=== PATIENT | female | born 1935 | race African-American/Black ===

== ENCOUNTER → 2017-01-08 | Outpatient (CLI) | payer OTHER ==
[2016-07-15 12:31] VITALS: BP 118/73
--- NOTE | 2017-01-08 16:39 | RAD ---
Examination: X-rays of the left hand. Clinical history: Left hand pain after catching herself from falling. Technique: Three views of the left hand were obtained. Comparison: None available. Findings: The bones are diffusely osteopenic. There is a small 4 mm corticated ossific density seen at the distal aspect of the ulnar styloid, whi ch could be due to an accessory ossicle or old ununited ulnar styloid fracture. An additional 5 mm c orticated ossific density is seen at the distal aspect of the radial styloid, probably representing a small accessory ossicle. An old ununited distal radius fracture cannot definitely be excluded. No acute fracture, dislocation, or destructive bony lesion is noted. Moderate osteoarthritic changes are noted at the 1st carpometacarpal joint and at the interphalangea l joint of the thumb. No soft tissue abnormality is noted. Impression: 1. No acute fracture or dislocation. 2. Arthropathy, as described above. 3. Diffuse osteopenia. Reported By:
== END | disposition home or self-care (01) ==
LOC: RAD 15:45
PROVIDERS: ATTEND Nurse Practitioner Family
DX: M79.642 Pain in left hand (principal); M12.842 Other specific arthropathies, not elsewhere classified, left hand; M85.842 Other specified disorders of bone density and structure, left hand
CPT/HCPCS: 73130

== ENCOUNTER → 2017-01-15 | Outpatient (CLI) | payer OTHER ==
[2016-07-15 12:31] VITALS: BP 118/73
--- NOTE | 2017-01-15 15:03 | RAD ---
HISTORY: Right knee pain Study: Right knee three view Comparison: None Findings: There is no evidence for fracture, lytic, or blastic lesion. No joint erosions are identified. There is a joint effusion present. There is severe patellofemoral degenerative joint disease present. The medial lateral compartments are preserved however there is subtle chondrocalcinosis involving the m edial and lateral menisci. This is most frequently seen in degenerative joint disease but can also b e seen in gout pseudogout and hemochromatosis. IMPRESSION: Relatively severe patellofemoral degenerative joint disease with a joint effusion present Medial lateral meniscal chondrocalcinosis Reported By:
== END | disposition home or self-care (01) | DRG 556 ==
LOC: RAD 14:36
PROVIDERS: ATTEND Nurse Practitioner Family
DX: M25.561 Pain in right knee (principal); M17.11 Unilateral primary osteoarthritis, right knee; M25.461 Effusion, right knee; M11.261 Other chondrocalcinosis, right knee
CPT/HCPCS: 73564

== ENCOUNTER → 2017-03-20 | Outpatient (CLI) | payer OTHER ==
[2016-07-15 12:31] VITALS: BP 118/73
[~2017-03-20] MED LIST: NS 100 ML IV 100 ML IV ONE
--- NOTE | 2017-03-20 11:56 | CT ---
Examination: CT of the abdomen and pelvis with contrast. Clinical History: Abnormal weight loss. Technique: Multiple axial images were obtained from the lung bases down to the pubic symphysis follow ing the intravenous administration of 99 ml of Omnipaque 350. Oral contrast was also administered. Do se reduction techniques including automated exposure control (AEC) and adjustment of mA and kV were u tilized. Comparison: 12/16/2013. Findings: There are multiple sternal wires indicating a prior median sternotomy, with an associated aortic valv e replacement also noted. Coronary artery calcifications are noted, suggestive of coronary artery dis ease. There is a confluent opacity present at the dependent portion of the left lower lobe, which cou ld be due to atelectasis or pneumonia. Clinical correlation is recommended. The remainder of the visu alized portion of the lung bases is unremarkable. Surgical clips are noted in the gallbladder fossa, consistent with a prior cholecystectomy. Essentially stable intra and extrahepatic biliary ductal dilatation is noted, with the common bile du ct measuring approximately 1.2 cm in diameter. There is stable mild prominence of the pancreatic duct also noted. Findings are probably postsurgical in nature, related to the prior cholecystectomy. The liver, spleen, pancreas, adrenal glands and kidneys are normal in appearance. The abdominal aorta is heavily calcified, but is normal in caliber. Extensive vascular calcifications are seen in the lower abdomen and pelvis, with additional milder vascular calcifications also seen i n the upper abdomen. There is no free air. The bowel gas pattern is non-obstructive. Extensive diverticular are seen associated with the sigmoid portion of the colon, with scattered smal l diverticula also seen in the descending portion of the colon. There is no CT evidence for an acute diverticulitis. The small bowel is grossly unremarkable. The appendix is visualized and is normal in appearance. The bladder is within normal limits. The uterus is surgically absent. Stable coarse periurethral calcifications are again noted. No pelvic mass or fluid collection is noted. No enlarged lymph nodes, by CT criteria, are noted in the mesenteric, periaortic or deep pelvic regio ns. There is a lumbar scoliosis seen convex to the right. Degenerative changes are noted in the spine. El ectronic leads are seen in the subcutaneous fat at the posterior aspect of the posterior elements of the lower lumbar spine. No acute osseous abnormality is noted. Impression: 1. Stable postsurgical changes from a prior cholecystectomy, with stable intra and extrahepatic bilia ry ductal dilatation and pancreatic duct dilatation noted. 2. Colonic diverticulosis without evidence for an acute diverticulitis. 3. Stable coarse periurethral calcifications are noted. Findings could be postsurgical or post trauma tic or could be due to an inflammatory or infective process. Clinical correlation is recommended. 4. There is a confluent opacity present at the dependent portion of the left lower lobe, which could be due to atelectasis or pneumonia. Clinical correlation is recommended. 5. Coronary artery calcifications are noted, suggestive of coronary artery disease. 6. There are postsurgical changes from a prior median sternotomy, with an associated aortic valve rep lacement. Reported By:
== END | disposition home or self-care (01) | DRG 641 ==
LOC: RAD 09:27
PROVIDERS: ATTEND Nurse Practitioner Family
DX: R63.4 Abnormal weight loss (principal); R63.0 Anorexia; R35.8 Other polyuria; K57.90 Diverticulosis of intestine, part unspecified, without perforation or abscess without bleeding; I25.10 Atherosclerotic heart disease of native coronary artery without angina pectoris
CPT/HCPCS: 36415; 74177; 82565; 84520; A4222

== ENCOUNTER 2017-06-02 12:36 | Inpatient (IN) | payer OTHER ==
[2017-06-02] MEDS ORDERED: NS 1/2 1000 ML IV 1,000 ML IV ONE (14:32)
[2017-06-02] MEDS: NS 1/2 1000 ML IV 1,000 ML IV SCH (14:41)
[2017-06-02 14:52] LABS: BASOPHILS % (AUTO) 0.5 % (0.2-1.0); EOSINOPHILS % (AUTO) 0.6 % (0.9-2.9); HEMATOCRIT 32.6 % (36.0-47.0); HEMOGLOBIN 10.9 g/dL (12.0-16.0); LYMPHOCYTES # (AUTO) 1.8 X10^3/uL (1.3-2.9); LYMPHOCYTES % (AUTO) 30.9 % (21.0-51.0); MEAN CORPUSCULAR HEMOGLOBIN 29.9 pg (27.0-34.0); MEAN CORPUSCULAR HGB CONC 33.5 g/dL (33.0-35.0); MEAN CORPUSCULAR VOLUME 89.1 fL (80.0-100.0); MEAN PLATELET VOLUME 7.6 fL (7.4-11.0); MONOCYTES # (AUTO) 0.4 x10^3/uL (0.3-0.8); MONOCYTES % (AUTO) 7.3 % (0.0-13.0); NEUTROPHILS # (AUTO) 3.5 x10^3/uL (2.2-4.8); NEUTROPHILS % (AUTO) 60.7 % (42.0-75.0); PLATELET COUNT 231 X10^3/uL (150.0-450.0); RED BLOOD COUNT 3.66 X10^6/uL (3.5-5.4); RED CELL DISTRIBUTION WIDTH 14.5 % (11.6-16.5); WHITE BLOOD COUNT 5.8 X10^3/uL (3.6-10.0)
[2017-06-02] MEDS ORDERED: SALINE 3% 15 ML NEB TX NEB ONE (14:52)
[2017-06-02 14:59] LABS: ALANINE AMINOTRANSFERASE 12 Units/L (12-78); ALBUMIN 3.5 g/dL (3.4-5.0); ALKALINE PHOSPHATASE 88 Units/L (46-116); ASPARTATE AMINO TRANSFERASE 15 Units/L (15-37); BLOOD UREA NITROGEN 20 mg/dL (7-18); CALCIUM 9.2 mg/dL (8.5-10.1); CARBON DIOXIDE 23.3 mmol/L (21-32); CHLORIDE 104 mmol/L (98-107); COR NA(FOR HYPERGLY) 140 mmol/L (136-145); CREATININE 1.15 mg/dL (0.55-1.02); SODIUM 139 mmol/L (136-145); TOTAL PROTEIN 7.8 g/dL (6.4-8.2); eGFR BLACK RACES 58 (>60); eGFR NON BLACK RACES 48 (>60)
[2017-06-02] MEDS ORDERED: ZOSYN VIAL 4.5 GM 4.5 GM in NS 100 ML IV + SPIKE MINIBAG* 100 ML IV SCH (15:00)
--- NOTE | 2017-06-02 15:27 | RAD ---
Is Examination: Chest, PA and lateral views History: Pneumonia and bronchitis Comparison reference: 07/15/2016 Findings: Continued upper normal heart size with surgical changes of aortic valve replacement. The ao rta is arteriosclerotic. The central pulmonary vessels are mildly distended. There is abnormal pleura l density at the left base posteriorly, and medially, which may represent pleural effusion and/or ple ural thickening. Associated parenchymal abnormality is not excluded. Impression: Stable heart size with postsurgical findings of aortic valve replacement. Mild venous con gestion. Retrocardiac density at the left base may represent pleural or more likely chronic pleural t hickening. Additional imaging would be helpful to distinguish. Reported By:
[2017-06-02] MEDS: SOLU-Medrol 125 MG VIAL IVP SCH ×2 (15:33→21:01)
[2017-06-02] MEDS: DUONEB 0.5 MG/3 MG NEB SCH ×2 (16:08→20:58)
[2017-06-02] MEDS: ROBITUSSIN DM PO SCH ×2 (16:30→21:08)
[2017-06-02] MEDS: PULMICORT NEB TX 0.5 MG NEB SCH (20:58)
[2017-06-02] MEDS: ZOSYN VIAL 3.375 GM 3.375 GM in NS 100 ML IV 100 ML IV SCH (21:01)
[2017-06-02] MEDS: TUSSIONEX PENNKINETIC SUSP PO PRN (21:02)
[2017-06-03] MEDS: DUONEB 0.5 MG/3 MG NEB SCH ×6 (01:07→20:31)
[2017-06-03 05:12] LABS: BASOPHILS % (AUTO) 0.2 % (0.2-1.0); HEMATOCRIT 27.6 % (36.0-47.0); HEMOGLOBIN 9.4 g/dL (12.0-16.0); LYMPHOCYTES # (AUTO) 0.4 X10^3/uL (1.3-2.9); LYMPHOCYTES % (AUTO) 12.3 % (21.0-51.0); MEAN CORPUSCULAR HEMOGLOBIN 30.4 pg (27.0-34.0); MEAN CORPUSCULAR HGB CONC 34.1 g/dL (33.0-35.0); MEAN CORPUSCULAR VOLUME 89.3 fL (80.0-100.0); MEAN PLATELET VOLUME 7.8 fL (7.4-11.0); MONOCYTES # (AUTO) 0 x10^3/uL (0.3-0.8); MONOCYTES % (AUTO) 1.1 % (0.0-13.0); NEUTROPHILS # (AUTO) 3.1 x10^3/uL (2.2-4.8); NEUTROPHILS % (AUTO) 86.4 % (42.0-75.0); PLATELET COUNT 208 X10^3/uL (150.0-450.0); RED BLOOD COUNT 3.09 X10^6/uL (3.5-5.4); RED CELL DISTRIBUTION WIDTH 14.3 % (11.6-16.5); WHITE BLOOD COUNT 3.6 X10^3/uL (3.6-10.0)
[2017-06-03 05:23] LABS: CARBON DIOXIDE 21.4 mmol/L (21-32); COR CA(FOR HYPOALB) 9.8 mg/dL (8.5-10.1); CREATININE 1.16 mg/dL (0.55-1.02); TOTAL PROTEIN 6.9 g/dL (6.4-8.2)
[2017-06-03] MEDS: ZOSYN VIAL 3.375 GM 3.375 GM in NS 100 ML IV 100 ML IV SCH ×3 (05:33→20:59)
[2017-06-03] MEDS: SOLU-Medrol 125 MG VIAL IVP SCH ×3 (05:33→20:59)
[2017-06-03] MEDS: NS 1/2 1000 ML IV 1,000 ML IV SCH ×3 (05:57→20:48)
[2017-06-03] MEDS ORDERED: MAGNESIUM SULFATE 1 GM/100 mL PREMIX 1 GM/100 ML BAG IV PRN (06:25)
[2017-06-03] MEDS ORDERED: MAG-OX TAB PO PRN (06:25)
[2017-06-03] MEDS ORDERED: K-LYTE EFFERVESCENT PO PRN (06:25)
[2017-06-03] MEDS ORDERED: K-RIDER 10 MEQ/NS 100 ML 10 MEQ/100 ML BAG IV PRN (06:25)
[2017-06-03] MEDS ORDERED: POTASSIUM CHLORIDE LIQ 20 MEQ UDC PO PRN (06:25)
[2017-06-03] MEDS ORDERED: POTASSIUM CHL 60 MEQ/NS 0.45% 500 ML IV NR (07:00)
[2017-06-03] MEDS ORDERED: POTASSIUM CHL 40 MEQ/NS 0.45% 500 ML IV PRN (07:00)
[2017-06-03] MEDS ORDERED: POTASSIUM CHL 60 MEQ/NS 0.45% 500 ML IV PRN (07:00)
[2017-06-03] MEDS ORDERED: ALPRAZOLAM 0.5 MG PO PRN (08:46)
[2017-06-03] MEDS ORDERED: [UNRECOGNIZED DRUG - OTHER] IN SCH (09:00)
[2017-06-03] MEDS ORDERED: SALMETEROL IN SCH (09:00)
[2017-06-03] MEDS ORDERED: FLUTICASONE IN SCH (09:00)
[2017-06-03] MEDS ORDERED: XANAX PO PRN (09:02)
[2017-06-03] MEDS: PROTONIX TAB 40 MG PO SCH (09:19)
[2017-06-03] MEDS: MEGACE PO SCH ×2 (09:19→20:53)
[2017-06-03] MEDS: LEVAQUIN PREMIX IV 750 MG 750 MG/150 ML BAG IV SCH (09:19)
[2017-06-03] MEDS: PULMICORT NEB TX 0.5 MG NEB SCH ×2 (09:19→20:31)
[2017-06-03] MEDS: TUSSIONEX PENNKINETIC SUSP PO PRN (09:20)
[2017-06-03] MEDS: ROBITUSSIN DM PO SCH ×5 (09:20→20:39)
[2017-06-03] MEDS: TENORMIN PO SCH (09:20)
[2017-06-03] MEDS: LASIX IVP SCH ×2 (10:29→20:40)
--- NOTE | 2017-06-03 11:13 | RAD ---
Examination: KUB History: Left lower quadrant pain Comparison reference: Abdomen CT 03/20/2017 Findings: There is significant gaseous distention of portions of small bowel in the left lower abdome n. The colon is not distended. There is no evidence for mass formation or ascites. Surgical clips are present in the upper abdomen. There is a catheter or similar device projected over the lower abdomen . This could be intra abdominal or on the skin surface. Mention is made of airspace disease in the le ft lower lung, with air bronchogram. Impression: 1. Selective small-bowel dilatation may represent ileus, or developing small bowel obstruction. Corre late clinically with follow-up imaging. 2. Postsurgical findings upper abdomen. 3. Infiltrate/atelectasis retrocardiac left lower lung. Reported By:
[2017-06-03] MEDS: NORCO 10/325 TAB PO PRN ×2 (11:49→19:04)
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
[2017-06-03] MEDS ORDERED: NS 1/2 1000 ML IV 1,000 ML IV ONE (19:59)
[2017-06-04] MEDS: DUONEB 0.5 MG/3 MG NEB SCH ×6 (00:58→20:35)
[2017-06-04 04:59] LABS: BASOPHILS % (AUTO) 0.2 % (0.2-1.0); HEMATOCRIT 27.5 % (36.0-47.0); HEMOGLOBIN 9.3 g/dL (12.0-16.0); LYMPHOCYTES # (AUTO) 0.5 X10^3/uL (1.3-2.9); LYMPHOCYTES % (AUTO) 4.6 % (21.0-51.0); MEAN CORPUSCULAR HEMOGLOBIN 30.1 pg (27.0-34.0); MEAN CORPUSCULAR HGB CONC 33.9 g/dL (33.0-35.0); MEAN CORPUSCULAR VOLUME 88.8 fL (80.0-100.0); MEAN PLATELET VOLUME 7.8 fL (7.4-11.0); MONOCYTES # (AUTO) 0.2 x10^3/uL (0.3-0.8); MONOCYTES % (AUTO) 1.4 % (0.0-13.0); NEUTROPHILS # (AUTO) 10.1 x10^3/uL (2.2-4.8); NEUTROPHILS % (AUTO) 93.8 % (42.0-75.0); PLATELET COUNT 214 X10^3/uL (150.0-450.0); RED CELL DISTRIBUTION WIDTH 14.8 % (11.6-16.5); WHITE BLOOD COUNT 10.8 X10^3/uL (3.6-10.0)
[2017-06-04 05:19] LABS: BAND NEUTROPHILS % 1 % (0-10); PLATELET MORPHOLOGY COMMENT NORMAL (NORMAL)
[2017-06-04] MEDS ORDERED: NS 100 ML IV 100 ML IV ONE (05:19)
[2017-06-04] MEDS ORDERED: ZOSYN VIAL 3.375 GM IV ONE (05:21)
[2017-06-04] MEDS: SOLU-Medrol 125 MG VIAL IVP SCH (05:30)
[2017-06-04] MEDS: ZOSYN VIAL 3.375 GM 3.375 GM in NS 100 ML IV 100 ML IV SCH ×3 (05:30→21:11)
[2017-06-04 06:36] LABS: ALANINE AMINOTRANSFERASE 11 Units/L (12-78); ALBUMIN 3.4 g/dL (3.4-5.0); ALKALINE PHOSPHATASE 64 Units/L (46-116); ASPARTATE AMINO TRANSFERASE 15 Units/L (15-37); BLOOD UREA NITROGEN 15 mg/dL (7-18); CALCIUM 9.1 mg/dL (8.5-10.1); CARBON DIOXIDE 21.3 mmol/L (21-32); CHLORIDE 107 mmol/L (98-107); COR NA(FOR HYPERGLY) 141 mmol/L (136-145); CREATININE 1.35 mg/dL (0.55-1.02); SODIUM 140 mmol/L (136-145); TOTAL PROTEIN 6.8 g/dL (6.4-8.2); eGFR BLACK RACES 48 (>60); eGFR NON BLACK RACES 40 (>60)
[2017-06-04] MEDS: PULMICORT NEB TX 0.5 MG NEB SCH ×2 (09:17→20:35)
[2017-06-04] MEDS: LEVAQUIN PREMIX IV 750 MG 750 MG/150 ML BAG IV SCH (10:13)
[2017-06-04] MEDS: MEGACE PO SCH ×2 (10:13→20:14)
[2017-06-04] MEDS: ROBITUSSIN DM PO SCH ×4 (10:14→20:14)
[2017-06-04] MEDS: TENORMIN PO SCH (10:14)
[2017-06-04] MEDS: PROTONIX TAB 40 MG PO SCH (10:14)
--- NOTE | 2017-06-04 11:24 | RAD ---
Examination: Portable AP chest History: COPD SOB Comparison reference 06/02/2017. Findings: Continued cardiomegaly, postsurgical findings and aortic arteriosclerosis. Soft tissue dens ity in the right superior mediastinum that may represent dilated vascular structures. There is a retr ocardiac opacity most consistent with airspace disease in the left lower lobe. No pneumothorax is see n. Impression: Stable cardiomegaly, aortic arteriosclerosis and postsurgical findings. Retrocardiac dens ity may represent infiltrate or atelectasis. This is been noted on several prior studies. Follow-up i maging with CT should be considered to exclude an obstructing bronchial lesion. Reported By:
[2017-06-04] MEDS: NORCO 10/325 TAB PO PRN (16:00)
[2017-06-04] MEDS: NS 1/2 1000 ML IV 1,000 ML IV SCH (16:00)
[2017-06-05] MEDS: DUONEB 0.5 MG/3 MG NEB SCH ×6 (01:10→20:57)
[2017-06-05] MEDS: ZOSYN VIAL 3.375 GM 3.375 GM in NS 100 ML IV 100 ML IV SCH ×3 (05:56→21:22)
[2017-06-05 06:11] LABS: BASOPHILS % (AUTO) 0.1 % (0.2-1.0); HEMATOCRIT 27.4 % (36.0-47.0); HEMOGLOBIN 9.3 g/dL (12.0-16.0); LYMPHOCYTES # (AUTO) 1.1 X10^3/uL (1.3-2.9); LYMPHOCYTES % (AUTO) 9.2 % (21.0-51.0); MEAN CORPUSCULAR HEMOGLOBIN 30.1 pg (27.0-34.0); MEAN CORPUSCULAR VOLUME 88.7 fL (80.0-100.0); MEAN PLATELET VOLUME 8.1 fL (7.4-11.0); MONOCYTES # (AUTO) 0.8 x10^3/uL (0.3-0.8); MONOCYTES % (AUTO) 6.2 % (0.0-13.0); NEUTROPHILS # (AUTO) 10.5 x10^3/uL (2.2-4.8); NEUTROPHILS % (AUTO) 84.5 % (42.0-75.0); PLATELET COUNT 202 X10^3/uL (150.0-450.0); RED BLOOD COUNT 3.09 X10^6/uL (3.5-5.4); WHITE BLOOD COUNT 12.4 X10^3/uL (3.6-10.0)
[2017-06-05] MEDS: NS 1/2 1000 ML IV 1,000 ML IV SCH ×2 (06:18→14:14)
[2017-06-05 06:29] LABS: ALANINE AMINOTRANSFERASE 11 Units/L (12-78); ALBUMIN 2.8 g/dL (3.4-5.0); ALKALINE PHOSPHATASE 57 Units/L (46-116); ASPARTATE AMINO TRANSFERASE 15 Units/L (15-37); BLOOD UREA NITROGEN 15 mg/dL (7-18); CALCIUM 9.1 mg/dL (8.5-10.1); CARBON DIOXIDE 22.4 mmol/L (21-32); CHLORIDE 107 mmol/L (98-107); COR CA(FOR HYPOALB) 10.1 mg/dL (8.5-10.1); CREATININE 1.13 mg/dL (0.55-1.02); SODIUM 142 mmol/L (136-145); TOTAL PROTEIN 6.5 g/dL (6.4-8.2); eGFR BLACK RACES 59 (>60); eGFR NON BLACK RACES 49 (>60)
--- NOTE | 2017-06-05 06:38 | RAD ---
Examination: Portable AP chest History: COPD CHF Comparison reference: 06/04/2017 Findings: No change in heart size. Persistent retrocardiac opacity in the left base. There is no evid ence for large pleural effusion, pneumothorax or other interval change. Impression: No change in appearance of the chest since 1 day earlier. Reported By:
[2017-06-05] MEDS: PULMICORT NEB TX 0.5 MG NEB SCH ×2 (09:15→20:57)
[2017-06-05] MEDS: TENORMIN PO SCH (09:18)
[2017-06-05] MEDS: ROBITUSSIN DM PO SCH ×4 (09:18→21:21)
[2017-06-05] MEDS: PROTONIX TAB 40 MG PO SCH (09:18)
[2017-06-05] MEDS: MEGACE PO SCH ×2 (09:18→21:21)
[2017-06-05] MEDS: NORCO 10/325 TAB PO PRN ×2 (09:21→18:22)
[2017-06-05] MEDS: COLACE CAP 100 MG PO SCH (15:04)
[2017-06-05] MEDS: MILK OF MAGNESIA PO SCH (15:05)
[2017-06-05] MEDS: TUSSIONEX PENNKINETIC SUSP PO PRN (15:08)
[2017-06-06] MEDS: MILK OF MAGNESIA PO SCH (00:41)
[2017-06-06] MEDS: COLACE CAP 100 MG PO SCH (00:41)
[2017-06-06] MEDS: DUONEB 0.5 MG/3 MG NEB SCH ×6 (01:44→20:26)
[2017-06-06] MEDS ORDERED: COLACE CAP 100 MG PO PRN ×2 (04:45→06:49)
[2017-06-06] MEDS ORDERED: MILK OF MAGNESIA PO PRN ×2 (04:45→06:49)
[2017-06-06] MEDS: ZOSYN VIAL 3.375 GM 3.375 GM in NS 100 ML IV 100 ML IV SCH ×3 (05:00→21:01)
[2017-06-06 05:44] LABS: ALANINE AMINOTRANSFERASE 12 Units/L (12-78); ALBUMIN 2.5 g/dL (3.4-5.0); ALKALINE PHOSPHATASE 59 Units/L (46-116); ASPARTATE AMINO TRANSFERASE 14 Units/L (15-37); BLOOD UREA NITROGEN 16 mg/dL (7-18); CALCIUM 8.4 mg/dL (8.5-10.1); CARBON DIOXIDE 24.5 mmol/L (21-32); CHLORIDE 108 mmol/L (98-107); COR CA(FOR HYPOALB) 9.6 mg/dL (8.5-10.1); CREATININE 0.99 mg/dL (0.55-1.02); SODIUM 142 mmol/L (136-145); TOTAL PROTEIN 5.8 g/dL (6.4-8.2); eGFR BLACK RACES > 60 (>60); eGFR NON BLACK RACES 57 (>60)
[2017-06-06 05:48] LABS: BASOPHILS % (AUTO) 0.1 % (0.2-1.0); EOSINOPHILS % (AUTO) 0.2 % (0.9-2.9); HEMATOCRIT 28.3 % (36.0-47.0); HEMOGLOBIN 9.7 g/dL (12.0-16.0); LYMPHOCYTES # (AUTO) 2.7 X10^3/uL (1.3-2.9); LYMPHOCYTES % (AUTO) 31.3 % (21.0-51.0); MEAN CORPUSCULAR HEMOGLOBIN 30.4 pg (27.0-34.0); MEAN CORPUSCULAR HGB CONC 34.2 g/dL (33.0-35.0); MEAN CORPUSCULAR VOLUME 88.9 fL (80.0-100.0); MEAN PLATELET VOLUME 7.8 fL (7.4-11.0); MONOCYTES # (AUTO) 0.9 x10^3/uL (0.3-0.8); MONOCYTES % (AUTO) 9.8 % (0.0-13.0); NEUTROPHILS # (AUTO) 5.1 x10^3/uL (2.2-4.8); NEUTROPHILS % (AUTO) 58.6 % (42.0-75.0); PLATELET COUNT 202 X10^3/uL (150.0-450.0); RED BLOOD COUNT 3.18 X10^6/uL (3.5-5.4); WHITE BLOOD COUNT 8.8 X10^3/uL (3.6-10.0)
[2017-06-06] MEDS: PROTONIX TAB 40 MG PO SCH (08:48)
[2017-06-06] MEDS: MEGACE PO SCH ×2 (08:48→20:58)
[2017-06-06] MEDS: ROBITUSSIN DM PO SCH ×4 (08:48→20:58)
[2017-06-06] MEDS: TENORMIN PO SCH (08:48)
[2017-06-06] MEDS: LEVAQUIN PREMIX IV 750 MG 750 MG/150 ML BAG IV SCH (08:49)
[2017-06-06] MEDS ORDERED: NS 1/2 1000 ML IV 1,000 ML IV ONE (08:50)
[2017-06-06] MEDS: NS 1/2 1000 ML IV 1,000 ML IV SCH ×2 (08:51→17:54)
[2017-06-06] MEDS: PULMICORT NEB TX 0.5 MG NEB SCH ×2 (09:43→20:25)
[2017-06-06] MEDS: ACCUNEB 1.25 MG NEBULE NEB SCH ×2 (16:30→20:25)
[2017-06-06] MEDS: NORCO 10/325 TAB PO PRN (17:52)
[2017-06-07] MEDS: DUONEB 0.5 MG/3 MG NEB SCH ×6 (00:57→21:37)
[2017-06-07] MEDS: NS 1/2 1000 ML IV 1,000 ML IV SCH ×2 (02:02→16:51)
[2017-06-07] MEDS: ZOSYN VIAL 3.375 GM 3.375 GM in NS 100 ML IV 100 ML IV SCH ×3 (05:58→21:18)
[2017-06-07 07:12] LABS: BASOPHILS % (AUTO) 0.2 % (0.2-1.0); EOSINOPHILS % (AUTO) 0.5 % (0.9-2.9); HEMATOCRIT 27.9 % (36.0-47.0); HEMOGLOBIN 9.6 g/dL (12.0-16.0); LYMPHOCYTES # (AUTO) 2.7 X10^3/uL (1.3-2.9); LYMPHOCYTES % (AUTO) 34.9 % (21.0-51.0); MEAN CORPUSCULAR HEMOGLOBIN 30.3 pg (27.0-34.0); MEAN CORPUSCULAR HGB CONC 34.4 g/dL (33.0-35.0); MEAN CORPUSCULAR VOLUME 88.3 fL (80.0-100.0); MEAN PLATELET VOLUME 7.8 fL (7.4-11.0); MONOCYTES # (AUTO) 0.7 x10^3/uL (0.3-0.8); MONOCYTES % (AUTO) 8.7 % (0.0-13.0); NEUTROPHILS # (AUTO) 4.3 x10^3/uL (2.2-4.8); NEUTROPHILS % (AUTO) 55.7 % (42.0-75.0); PLATELET COUNT 198 X10^3/uL (150.0-450.0); RED BLOOD COUNT 3.17 X10^6/uL (3.5-5.4); RED CELL DISTRIBUTION WIDTH 15.3 % (11.6-16.5); WHITE BLOOD COUNT 7.6 X10^3/uL (3.6-10.0)
[2017-06-07 07:26] LABS: BLOOD UREA NITROGEN 13 mg/dL (7-18); CALCIUM 8.3 mg/dL (8.5-10.1); CARBON DIOXIDE 26.3 mmol/L (21-32); CHLORIDE 108 mmol/L (98-107); CREATININE 1.05 mg/dL (0.55-1.02); SODIUM 141 mmol/L (136-145); eGFR BLACK RACES > 60 (>60); eGFR NON BLACK RACES 53 (>60)
[2017-06-07 07:57] LABS: ALANINE AMINOTRANSFERASE 13 Units/L (12-78); ALBUMIN 2.7 g/dL (3.4-5.0); ALKALINE PHOSPHATASE 61 Units/L (46-116); ASPARTATE AMINO TRANSFERASE 12 Units/L (15-37); TOTAL PROTEIN 5.9 g/dL (6.4-8.2)
[2017-06-07 08:15] LABS: COR CA(FOR HYPOALB) 9.3 mg/dL (8.5-10.1)
[2017-06-07] MEDS: NORCO 10/325 TAB PO PRN ×2 (08:47→15:53)
[2017-06-07] MEDS: TENORMIN PO SCH (08:48)
[2017-06-07] MEDS: PROTONIX TAB 40 MG PO SCH (08:48)
[2017-06-07] MEDS: MEGACE PO SCH ×2 (08:48→21:17)
[2017-06-07] MEDS: ROBITUSSIN DM PO SCH ×4 (08:51→21:18)
[2017-06-07] MEDS: ACCUNEB 1.25 MG NEBULE NEB SCH ×2 (09:16→21:37)
[2017-06-07] MEDS: PULMICORT NEB TX 0.5 MG NEB SCH ×2 (09:16→21:37)
[2017-06-08] MEDS: DUONEB 0.5 MG/3 MG NEB SCH ×6 (01:04→20:55)
[2017-06-08 04:33] LABS: BASOPHILS % (AUTO) 0.2 % (0.2-1.0); EOSINOPHILS # (AUTO) 0.1 x10^3/uL (0.0-0.2); HEMATOCRIT 30.7 % (36.0-47.0); HEMOGLOBIN 10.3 g/dL (12.0-16.0); LYMPHOCYTES # (AUTO) 2.8 X10^3/uL (1.3-2.9); LYMPHOCYTES % (AUTO) 32.3 % (21.0-51.0); MEAN CORPUSCULAR HEMOGLOBIN 30.1 pg (27.0-34.0); MEAN CORPUSCULAR HGB CONC 33.5 g/dL (33.0-35.0); MEAN PLATELET VOLUME 7.4 fL (7.4-11.0); MONOCYTES # (AUTO) 0.8 x10^3/uL (0.3-0.8); MONOCYTES % (AUTO) 8.5 % (0.0-13.0); NEUTROPHILS # (AUTO) 5.1 x10^3/uL (2.2-4.8); PLATELET COUNT 205 X10^3/uL (150.0-450.0); RED BLOOD COUNT 3.41 X10^6/uL (3.5-5.4); RED CELL DISTRIBUTION WIDTH 14.9 % (11.6-16.5); WHITE BLOOD COUNT 8.8 X10^3/uL (3.6-10.0)
[2017-06-08 05:00] LABS: ALANINE AMINOTRANSFERASE 11 Units/L (12-78); ALBUMIN 2.9 g/dL (3.4-5.0); ALKALINE PHOSPHATASE 69 Units/L (46-116); ASPARTATE AMINO TRANSFERASE 13 Units/L (15-37); BLOOD UREA NITROGEN 12 mg/dL (7-18); CALCIUM 7.8 mg/dL (8.5-10.1); CARBON DIOXIDE 23.8 mmol/L (21-32); CHLORIDE 106 mmol/L (98-107); COR CA(FOR HYPOALB) 8.7 mg/dL (8.5-10.1); SODIUM 139 mmol/L (136-145); TOTAL PROTEIN 6.3 g/dL (6.4-8.2); eGFR BLACK RACES > 60 (>60); eGFR NON BLACK RACES 56 (>60)
[2017-06-08] MEDS: NS 1/2 1000 ML IV 1,000 ML IV SCH ×2 (05:36→17:46)
[2017-06-08] MEDS ORDERED: NS 100 ML IV + SPIKE MINIBAG* 100 ML IV ONE (05:38)
[2017-06-08] MEDS ORDERED: ZOSYN VIAL 3.375 GM IV ONE (05:38)
[2017-06-08] MEDS: ZOSYN VIAL 3.375 GM 3.375 GM in NS 100 ML IV 100 ML IV SCH ×3 (05:45→21:13)
--- NOTE | 2017-06-08 07:01 | RAD ---
Examination: Portable AP chest History: SOB COPD Comparison reference: 06/05/2017 Findings: Stable heart size with no new abnormality noted. There is slight apparent improvement in th e retrocardiac opacity since 3 days earlier. No evidence for developing pleural fluid or pneumothorax . Impression: Improving aeration of the left lower lung. Reported By:
[2017-06-08] MEDS: PULMICORT NEB TX 0.5 MG NEB SCH ×2 (08:06→20:55)
[2017-06-08] MEDS: MEGACE PO SCH ×2 (09:21→21:12)
[2017-06-08] MEDS: ROBITUSSIN DM PO SCH ×4 (09:21→21:13)
[2017-06-08] MEDS: PROTONIX TAB 40 MG PO SCH (09:21)
[2017-06-08] MEDS: LEVAQUIN PREMIX IV 750 MG 750 MG/150 ML BAG IV SCH (09:22)
[2017-06-08] MEDS: NORCO 10/325 TAB PO PRN (09:22)
[2017-06-08] MEDS: TENORMIN PO SCH (09:23)
[2017-06-08] MEDS ORDERED: NS 1/2 1000 ML IV 1,000 ML IV ONE (17:48)
[2017-06-08] MEDS ORDERED: PREDNISONE TAB 20 MG PO ONE (19:00)
[2017-06-08] MEDS ORDERED: PREDNISONE TAB 10 MG PO SCH (19:00)
[2017-06-09] MEDS: DUONEB 0.5 MG/3 MG NEB SCH ×6 (00:56→21:10)
[2017-06-09] MEDS ORDERED: PREDNISONE TAB 20 MG PO ONE ×2 (01:00→07:00)
[2017-06-09 04:28] LABS: BLOOD UREA NITROGEN 11 mg/dL (7-18); CALCIUM 8.7 mg/dL (8.5-10.1); CARBON DIOXIDE 24.1 mmol/L (21-32); CHLORIDE 105 mmol/L (98-107); COR NA(FOR HYPERGLY) 140 mmol/L (136-145); SODIUM 139 mmol/L (136-145); eGFR BLACK RACES > 60 (>60); eGFR NON BLACK RACES 50 (>60)
[2017-06-09 04:48] LABS: BASOPHILS % (AUTO) 0.1 % (0.2-1.0); HEMATOCRIT 28.2 % (36.0-47.0); HEMOGLOBIN 9.7 g/dL (12.0-16.0); LYMPHOCYTES # (AUTO) 0.4 X10^3/uL (1.3-2.9); LYMPHOCYTES % (AUTO) 4.8 % (21.0-51.0); MEAN CORPUSCULAR HEMOGLOBIN 30.5 pg (27.0-34.0); MEAN CORPUSCULAR HGB CONC 34.3 g/dL (33.0-35.0); MEAN CORPUSCULAR VOLUME 88.9 fL (80.0-100.0); MEAN PLATELET VOLUME 7.3 fL (7.4-11.0); MONOCYTES # (AUTO) 0.1 x10^3/uL (0.3-0.8); MONOCYTES % (AUTO) 0.9 % (0.0-13.0); NEUTROPHILS # (AUTO) 7.5 x10^3/uL (2.2-4.8); NEUTROPHILS % (AUTO) 94.2 % (42.0-75.0); PLATELET COUNT 190 X10^3/uL (150.0-450.0); RED BLOOD COUNT 3.17 X10^6/uL (3.5-5.4); WHITE BLOOD COUNT 7.9 X10^3/uL (3.6-10.0)
[2017-06-09 04:59] LABS: ALANINE AMINOTRANSFERASE 11 Units/L (12-78); ALBUMIN 2.8 g/dL (3.4-5.0); ALKALINE PHOSPHATASE 58 Units/L (46-116); ASPARTATE AMINO TRANSFERASE 11 Units/L (15-37); COR CA(FOR HYPOALB) 9.7 mg/dL (8.5-10.1); TOTAL PROTEIN 6.5 g/dL (6.4-8.2)
[2017-06-09 05:21] LABS: BAND NEUTROPHILS % 1 % (0-10); PLATELET MORPHOLOGY COMMENT NORMAL (NORMAL)
[2017-06-09 05:22] LABS: OVALOCYTES PRESENT
[2017-06-09] MEDS: NS 1/2 1000 ML IV 1,000 ML IV SCH ×2 (05:56→21:26)
[2017-06-09] MEDS: ZOSYN VIAL 3.375 GM 3.375 GM in NS 100 ML IV 100 ML IV SCH ×3 (06:03→21:25)
[2017-06-09] MEDS ORDERED: BENADRYL CAP 50 MG PO ONE (07:00)
[2017-06-09] MEDS: ACCUNEB 1.25 MG NEBULE NEB SCH (09:39)
[2017-06-09] MEDS: PULMICORT NEB TX 0.5 MG NEB SCH ×2 (09:40→21:10)
[2017-06-09] MEDS ORDERED: NS 1/2 1000 ML IV 1,000 ML IV ONE (10:06)
[2017-06-09] MEDS: ROBITUSSIN DM PO SCH ×4 (10:57→21:17)
[2017-06-09] MEDS: PROTONIX TAB 40 MG PO SCH (10:58)
[2017-06-09] MEDS: MEGACE PO SCH ×2 (10:58→21:17)
--- NOTE | 2017-06-09 11:14 | CT ---
HISTORY: Shortness of breath, lung infiltrates Study: CT chest with contrast Comparison: Plain film 06/08/2017 Technique: Axial post-contrast images with coronal and sagittal reformats. Dose reduction procedures were used with mA/kv adjusted for body size. Findings: Examination of the mediastinum demonstrated a markedly enlarged thyroid gland with substernal extensi on that deviates the trachea to the left. Multiple nodules and calcifications are present. Sonographi c evaluation would be of further diagnostic value. No mediastinal or hilar adenopathy of significance is identified. The thoracic aorta is within normal limits. Trace left pleural effusion is present. N o chest wall or axillary abnormality is identified. Those portions of the upper abdominal organs visu alized were within normal limits. Examination of the lung rao demonstrated changes of centrilobula r emphysema to be present more prominent on the right than the left. No masses, or nodules are identi fied. The right lung is free of acute infiltrates as is the left upper lobe. There is a small left lo wer lobe infiltrate with some associated atelectatic change present. There is diffuse peribronchial t hickening consistent with bronchitis which could be acute, chronic, or both. IMPRESSION: Small residual left lower lobe infiltrate Centrilobular emphysema Diffuse peribronchial thickening consistent with bronchitis which could be acute, chronic, or both Marked thyromegaly with substernal extension and leftward tracheal deviation. Multiple nodules appear to be present. Sonography would be of further diagnostic value. Reported By:
[2017-06-09] MEDS: TENORMIN PO SCH (11:15)
[2017-06-09] MEDS: NORCO 10/325 TAB PO PRN (16:17)
--- NOTE | 2017-06-09 18:14 | US ---
History: Thyromegaly Study: Ultrasound of the thyroid Findings: The right lobe measures 4.9 by 2.4 x 2.1 cm. The left lobe measures 3.5 by 2.1 x 1.8 cm. Th e isthmus measures 4.6 mm thickness. There is heterogeneous echogenicity diffusely with multiple michael d thyroid nodules the largest nodule on the right is in the lower pole measuring 3.3 cm maximum lengt h by approximately 1.9 cm AP diameter. There is peripheral vascularity around this nodule. The larges t on the left measures approximately 7 mm in diameter. Impression: Multinodular thyroid gland. A solid heterogeneous dominant nodule on the right measures u p to 3.3 x 1.9 cm which has some benign characteristics but because of size I recommend consideration of FNA. Reported By:
[2017-06-09 18:28] LABS: FREE T4 (FREE THYROXINE) 1.01 ng/dL (0.76-1.46); TSH (3RD GENERATION) 0.527 uIU/mL (0.358-3.74)
[2017-06-09] MEDS ORDERED: BENADRYL CAP 50 MG PO SCH (19:00)
[2017-06-10] MEDS: DUONEB 0.5 MG/3 MG NEB SCH ×4 (00:33→12:08)
[2017-06-10] MEDS: NORCO 10/325 TAB PO PRN (01:40)
[2017-06-10] MEDS ORDERED: NS 100 ML IV + SPIKE MINIBAG* 100 ML IV ONE (05:50)
[2017-06-10 06:00] LABS: ALANINE AMINOTRANSFERASE 10 Units/L (12-78); ALBUMIN 2.5 g/dL (3.4-5.0); ALKALINE PHOSPHATASE 53 Units/L (46-116); ASPARTATE AMINO TRANSFERASE 12 Units/L (15-37); BLOOD UREA NITROGEN 13 mg/dL (7-18); CALCIUM 8.2 mg/dL (8.5-10.1); CARBON DIOXIDE 23.2 mmol/L (21-32); CHLORIDE 108 mmol/L (98-107); COR CA(FOR HYPOALB) 9.4 mg/dL (8.5-10.1); CREATININE 0.94 mg/dL (0.55-1.02); SODIUM 141 mmol/L (136-145); TOTAL PROTEIN 5.9 g/dL (6.4-8.2); eGFR BLACK RACES > 60 (>60); eGFR NON BLACK RACES > 60 (>60)
[2017-06-10] MEDS: ZOSYN VIAL 3.375 GM 3.375 GM in NS 100 ML IV 100 ML IV SCH ×2 (06:08→13:32)
[2017-06-10 06:39] LABS: BASOPHILS % (AUTO) 0.2 % (0.2-1.0); HEMATOCRIT 24.9 % (36.0-47.0); HEMOGLOBIN 8.6 g/dL (12.0-16.0); LYMPHOCYTES # (AUTO) 1.6 X10^3/uL (1.3-2.9); LYMPHOCYTES % (AUTO) 14.6 % (21.0-51.0); MEAN CORPUSCULAR HEMOGLOBIN 30.5 pg (27.0-34.0); MEAN CORPUSCULAR HGB CONC 34.4 g/dL (33.0-35.0); MEAN CORPUSCULAR VOLUME 88.6 fL (80.0-100.0); MEAN PLATELET VOLUME 7.8 fL (7.4-11.0); MONOCYTES # (AUTO) 0.8 x10^3/uL (0.3-0.8); MONOCYTES % (AUTO) 7.2 % (0.0-13.0); NEUTROPHILS # (AUTO) 8.6 x10^3/uL (2.2-4.8); PLATELET COUNT 180 X10^3/uL (150.0-450.0); RED BLOOD COUNT 2.81 X10^6/uL (3.5-5.4); RED CELL DISTRIBUTION WIDTH 15.5 % (11.6-16.5); WHITE BLOOD COUNT 11.1 X10^3/uL (3.6-10.0)
[2017-06-10] MEDS: PULMICORT NEB TX 0.5 MG NEB SCH (08:44)
[2017-06-10] MEDS: ROBITUSSIN DM PO SCH ×2 (09:29→13:31)
[2017-06-10] MEDS: MEGACE PO SCH (09:30)
[2017-06-10] MEDS: TENORMIN PO SCH (09:30)
[2017-06-10] MEDS: PROTONIX TAB 40 MG PO SCH (09:30)
[2017-06-10] MEDS: LEVAQUIN PREMIX IV 750 MG 750 MG/150 ML BAG IV SCH (09:30)
[2017-06-10 14:37] VITALS: BP 117/60
== END 2017-06-10 15:55 | disposition home health service (06) | DRG 202 ==
LOC: MED/SURG 12:36
PROVIDERS: ADMIT Internal Medicine; ATTEND Internal Medicine
DX: J20.8 Acute bronchitis due to other specified organisms (principal); J44.1 Chronic obstructive pulmonary disease with (acute) exacerbation; I25.10 Atherosclerotic heart disease of native coronary artery without angina pectoris; I10 Essential (primary) hypertension; F41.8 Other specified anxiety disorders; R06.02 Shortness of breath; R06.03 Acute respiratory distress; E04.1 Nontoxic single thyroid nodule; M19.90 Unspecified osteoarthritis, unspecified site
CPT/HCPCS: 36415; 71010; 71020; 71260; 74000; 76536; 80053; 83735; 84132; 84439; 84443; 85025; 87040; 87070; 87205; 94640; 94669; 94760; 99231; A4222; S0179; J1940; J1956; J2543; J2930; J7506; J7613; J7620; J7626

== ENCOUNTER 2017-07-23 21:52 | Emergency (ER) | payer OTHER ==
[2017-07-23 21:57] VITALS: BP 167/78; BMI 20.3
--- NOTE | 2017-07-23 22:54 | RAD ---
Chest, two views Indication: Shortness of breath, left lower lobe infiltrate Comparison: 06/08/2017 Findings: Heart size is stable with prior median sternotomy and valve replacement changes noted. Lung s are again mildly hyperexpanded with flattening of the hemidiaphragms, compatible with COPD. Previou sly seen left lower lobe opacity has minimally improved in the interval. No new focal infiltrate, sig nificant effusion or pneumothorax is identified. Impression: Persistent but improving left lower lobe infiltrate. Reported By:
[2017-07-23] MEDS ORDERED: ROCEPHIN VIAL 1 GM IM ONE (23:37)
[2017-07-23] MEDS ORDERED: ROCEPHIN VIAL 1 GM ONE (23:40)
[2017-07-23] MEDS ORDERED: XYLOCAINE 1 % (PLAIN) ONE (23:40)
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
== END 2017-07-24 00:09 | disposition home or self-care (01) ==
LOC: ER 21:52
DX: J18.9 Pneumonia, unspecified organism (principal); T59.811A Toxic effect of smoke, accidental (unintentional), initial encounter
CPT/HCPCS: 71046; 96372; 99282; J0696; J2001

== ENCOUNTER → 2017-11-13 | Outpatient (CLI) | payer OTHER ==
[2017-11-11 08:45] VITALS: BP 110/57
== END ==
LOC: RT 12:35
PROVIDERS: ATTEND Nurse Practitioner Family
DX: R07.89 Other chest pain (principal)
CPT/HCPCS: 93005; 93010

== ENCOUNTER 2018-04-18 18:27 | Inpatient (IN) ==
[2018-04-18 18:31] VITALS: BMI 21.9
[2018-04-18] MEDS ORDERED: DUONEB 0.5 MG/3 MG ONE ×2 (18:35→18:58)
[2018-04-18] MEDS ORDERED: DUONEB 0.5 MG/3 MG NEB ONE ×2 (18:36→18:51)
[2018-04-18] MEDS ORDERED: SOLU-Medrol 125 MG VIAL IVP ONE (18:51)
--- NOTE | 2018-04-18 18:53 | DR.URIAD ---
HPI - Time Seen Time seen: 18:50 - PCP Primary Care Physician: mary jo - Complaint Chief Complaint Doctors Comments: Patient is complaining of SOB, wheezing with problems breathing since last night. States she has been taking nebulizer treat ments at home but it has not been helping. States she is a patient of Dr. Franco. She denies tobacco, alcohol or drug usage. She denies swelling of arm and legs. States she has been coughing yellow sputum and last night she coughed up some blood but not today. Chief Complaint:: pt stated she has been short of breath since last night. stated she took her breathing tx at home but it hasnt helped - Reviewed Nurses Notes Reviewed: Yes - Source History Provided: Patient - Mode of Arrival Mode of Arrival: Ambulatory - Timing Onset of Chief Complaint: 04/17/18 - Context Recent Treated Infections: None History of Respiratory: Asthma - Quality Quality of Cough: Productive, Yellow Rhinorrhea: None Shortness of Breath: Moderate - Associated Signs and Symptoms Other Signs and Symptoms: Cough, Shortness of Breath, Wheeze PMH - PMH Past Medical History: Yes Past Medical History: Anxiety, Arthritis, COPD, Coronary Artery Disease, GERD, Hypertension Past Surgical History: Yes Surgical History: Angioplasty/Stents, Hysterectomy, Other - Family History History of Family Medical Conditions: Yes Family Medical History: Cancer - Social History Does patient currently use any type of tobacco product: No Have you used tobacco products in the last 12 months: No Type of Tobacco Use: None Does any household member use tobacco: Yes Alcohol Use: None Do you use any recreational Drugs:: No Lives With: Family Lives Where: Home - infectious screening In the last 2 months have you had wt loss of >10#?: NO Have you had fever, night sweats or hemotysis?: No Have you traveled outside the country in the last 6 months?: No Isolation: Standard ROS - Review of Systems Constitutional: No Symptoms Reported, Weakness Eyes: No Symptoms Reported. negative: See HPI, Eye Pain, Blurred Vision, Tearing, Discharge, Photophobia, Diplopia, Other ENTM: No Symptoms Reported Respiratoy: No Symptoms Reported, Productive Cough, Short of Breath, Wheezing. negative: See HPI, Non-Productive Cough, Moist Cough, Dry Cough, Hacking Cough, Barking Cough, Brassy Cough, Orthopnea, Stridor, Hemoptysis, Other Cardiovascular: No Symptoms Reported. negative: See HPI, Chest Pain, Edema, Palpitations, Syncope, Cyanosis, Skin Mottling, Other Gastrointestinal/Abdominal: No Symptoms Reported Genitourinary: No Symptoms Reported. negative: See HPI, Discharge, Dysuria, Frequency, Hematuria, Pain, Bleeding, Other Neurological: No Symptoms Reported Musculoskeletal: No Symptoms Reported Integumentary: No Symptoms Reported. negative: See HPI, Change in Color, Change in Hair/Nails, Dryness, Lesions, Lumps, Rash, Itching, Wound, Bruises, Juandice, Other Hematologic/Lymphatic: No Symptoms Reported. negative: See HPI, Anemia, Blood Clots, Easy Bleeding, Easy Bruising, Swollen Glands, Lymphadenopathy, Other Endocrine: No Symptoms Reported Psychiatric: No Symptoms Reported. negative: See HPI, Anxiety, Depression, Hallucinations, Excessive crying, Suicidal, Other PE - General Limitations: No Limitations General Appearance: Alert, In Distress (moderate) - Head Head Exam: Normal Inspection, Atraumatic, Normocephalic - Eyes Eye exam: Normal Appearance, PERRL, EOMI. negative: Scleral Icterus, Conjunctival Injection, Nystagmus, Miosis, Mydrasis, Periorbital Swelling, Periorbital Tenderness, Other - ENT ENT Exam: Normal Exam, Normal Oropharynx, Normal External Ear Exam, Mucous Membranes Moist, TM's Normal Bilaterally External Ear Exam: Normal External Inspection TM/Canal Exam: Bilateral Normal Nasal Speculum Exam: Bilateral Normal Mouth Exam: Normal Inspection Throat Exam: Normal Inspection - Neck Neck Exam: Normal Inspection, Full ROM, Trachea Midline. negative: Tenderness, Meningismus, Lymphadenopathy, Thyromegaly, Other - Chest Chest Inspection: Normal Inspection, Symmetric Chest Wall Rise - Respiratory Respiratory Exam: Normal Lung Sounds Bilat, Prolonged Expiratory Phase Respiratory Exam: Bilateral Wheezing, Bilateral Rhonchi, Bilateral Decreased Breath Sounds, Right Rales - Cardiovascular Cardiovascular Exam: Regular Rate, Normal Rhythm, Normal Heart Sounds - Abdominal Exam Abdominal Exam: Normal Inspection, Normal Bowel Sounds, Soft. negative: Distention, Tenderness, Guarding, Rebound, Rigidity, Dimnished Bowel Sounds, Hyperactive Bowel Sounds, Hypoactive Bowel Sounds, Organomegaly, Trauma, Incision, Ascites, Mass, Bruit, Pulsatile Mass, Hernia, Other Abdominal Tenderness: negative: RUQ, RLQ, LUQ, LLQ, Epigastrium, Suprapubic, Diffuse, Mild, Moderate, Severe, Other - Extremeties Extremities Exam: Normal Inspection, Full ROM, Normal Capillary Refill. negative: Tenderness, Edema, Joint Swelling, Calf Tenderness, Other - Back Back Exam: Normal Inspection, Full ROM. negative: Tenderness, (R) CVA Tenderness, (L) CVA Tenderness, Muscle Spasm, Paraspinal Tenderness, Vertebral Tenderness, Rashes, (R) Sciatic Notch Tenderness, (L) Sciatic Notch Tendern, (R) Straight Leg Raise, (L) Straight Leg Raise, Other - Neurologic Neurological Exam: Alert, Oriented X3, CN II-XII Intact, Normal Gait, Reflexes Normal - Psychiatric Psychiatric Exam: Normal Affect, Normal Mood. negative: Depressed, Agitated, Anxious, Flat Affect, Manic, Homicidal Ideation, Suicidal Ideation, Other - Skin Skin Exam: Warm, Dry, Intact, Normal Color - Vital Signs Vitals: Temperature 98.9 F Pulse Rate 101 Respiratory Rate 20 Blood Pressure [Right Arm] 109/55 Blood Pressure [Left Arm] 110/57 Blood Pressure 136/81 O2 Sat by Pulse Oximetry 98 Course - Reevaluation 1st: Improved - Consultation Called: 00:40 Call Returned: 00:40 (Dr. Morgan to admit) - Education/Counseling Education/Counseling: Patient, Family Educated On: Treatment, Diagnosis, Prognosis, Needs for Follow Up ROR - Labs Reviewed Laboratory Results Reviewed?: Yes (All labs and x-ray results reviewed and discussed with patient) Result Diagrams: 04/18/18 19:05 04/18/18 19:05 - XRAY XRAY Interpreted by: Radiologist (CTA: no pulmonary embolus. Right thyroid mass 5x3 cm. Emphysema. Mucoid impacation right lower lobbe. Scattered ground glass opacities nonspecific mild pneumonitis not excluded.) XRAY Findings: CXR: mode enlargement of cardiac silhouette. Prominenc pulmonary vasculatur - EKG Rate: 113 [place]: Normal Rhythm: NSR, ST Block: None Hypertrophy: None ST: Normal, Nonsp - Labs Reviewed Laboratory: WBC 9.6 X10^3/uL (3.6-10.0) 04/18/18 19:05 RBC 3.46 X10^6/uL (3.5-5.4) L 04/18/18 19:05 Hgb 10.6 g/dL (12.0-16.0) L 04/18/18 19:05 Hct 31.6 % (36.0-47.0) L 04/18/18 19:05 MCV 91.2 fL (80.0-100.0) 04/18/18 19:05 MCH 30.7 pg (27.0-34.0) 04/18/18 19:05 MCHC 33.7 g/dL (33.0-35.0) 04/18/18 19:05 RDW 15.5 % (11.6-16.5) 04/18/18 19:05 Plt Count 180 X10^3/uL (150.0-450.0) 04/18/18 19:05 MPV 8.5 fL (7.4-11.0) 04/18/18 19:05 Neut % (Auto) 75.3 % (42.0-75.0) H 04/18/18 19:05 Lymph % (Auto) 14.3 % (21.0-51.0) L 04/18/18 19:05 Alexander % (Auto) 9.8 % (0.0-13.0) 04/18/18 19:05 Eos % (Auto) 0.2 % (0.9-2.9) L 04/18/18 19:05 Baso % (Auto) 0.4 % (0.2-1.0) 04/18/18 19:05 Neut # (Auto) 7.2 x10^3/uL (2.2-4.8) H 04/18/18 19:05 Lymph # (Auto) 1.4 X10^3/uL (1.3-2.9) 04/18/18 19:05 Alexander # (Auto) 0.9 x10^3/uL (0.3-0.8) H 04/18/18 19:05 Eos # (Auto) 0.0 x10^3/uL (0.0-0.2) 04/18/18 19:05 Baso # (Auto) 0.0 X10^3/uL (0.0-0.1) 04/18/18 19:05 Absolute Nucleated RBC 0.1 /100WBC 04/18/18 19:05 INR Target Range - 04/18/18 19:05 INR 1.07 (0.8-1.3) 04/18/18 19:05 APTT 34.9 SECONDS (22.9-36.5) 04/18/18 19:05 PTT Comment - 04/18/18 19:05 D-Dimer 705 ng/mL (0-400) H* 04/18/18 19:05 Sodium 141 mmol/L (136-145) 04/18/18 19:05 Corrected Sodium TNP 04/18/18 19:05 Potassium 3.7 mmol/L (3.5-5.1) 04/18/18 19:05 Chloride 108 mmol/L (98-107) H 04/18/18 19:05 Carbon Dioxide 21.7 mmol/L (21-32) 04/18/18 19:05 BUN 17 mg/dL (7-18) 04/18/18 19:05 Creatinine 1.10 mg/dL (0.55-1.02) H 04/18/18 19:05 Est GFR (MDRD) Af Amer > 60 (>60) 04/18/18 19:05 Est GFR (MDRD) Non-Af 50 (>60) L 04/18/18 19:05 Glucose 94 mg/dL (65-99) 04/18/18 19:05 Calcium 8.7 mg/dL (8.5-10.1) 04/18/18 19:05 Corrected Calcium TNP 04/18/18 19:05 Magnesium 2.0 mg/dL (1.7-2.9) 04/18/18 19:05 Total Bilirubin 0.50 mg/dL (0.2-1.0) 04/18/18 19:05 AST 22 Units/L (15-37) 04/18/18 19:05 ALT 19 Units/L (12-78) 04/18/18 19:05 Alkaline Phosphatase 94 Units/L (46-116) 04/18/18 19:05 Creatine Kinase 302 Units/L (26-192) H 04/18/18 19:05 CK-MB (CK-2) 3.4 ng/mL (0-4.0) 04/18/18 19:05 CK/CKMB % Calc 1.1 % (<4) 04/18/18 19:05 Troponin I 0.02 ng/mL (0-1.5) 04/18/18 19:05 B-Natriuretic Peptide 131 pg/mL (0-79) H 04/18/18 19:05 Total Protein 7.4 g/dL (6.4-8.2) 04/18/18 19:05 Albumin 3.4 g/dL (3.4-5.0) 04/18/18 19:05 Globulin 4.0 g/dL (2.5-4.5) 04/18/18 19:05 Albumin/Globulin Ratio 0.9 Ratio (1.1-2.1) L 04/18/18 19:05 - Diagnosis Discharge Problem: Chronic obstructive pulmonary disease with acute exacerbation, Bronchitis, acute, Thyroid mass, Emphysema lung Congestive heart failure Qualifiers: Heart failure type: unspecified Heart failure chronicity: acute Qualified Code(s): I50.9 - Heart failure, unspecified - Discharge Plan Disposition: ADMITTED INPATIENT Condition: Stable - Follow ups/Referrals Follow ups/Referrals: BROOKLYN FRANCO [Primary Care Provider] - 3 days - Instructions
--- NOTE | 2018-04-18 19:05 | RAD ---
History: Shortness of breath. Technique: AP chest Comparison: 11/10/2017 Findings: Status post median sternotomy. There is moderate enlargement of the cardiac silhouette with prominenc e of central point vasculature and perihilar interstitium. No focal airspace opacities are noted. Impression: 1. Moderate enlargement of the cardiac silhouette. 2. Prominence of central pulmonary vasculature and perihilar interstitium suggesting venous congestiv e changes. Reported By:
[2018-04-18] MEDS ORDERED: SOLU-Medrol 125 MG VIAL ONE (19:07)
[2018-04-18 19:18] LABS: BASOPHILS % (AUTO) 0.4 % (0.2-1.0); EOSINOPHILS % (AUTO) 0.2 % (0.9-2.9); HEMATOCRIT 31.6 % (36.0-47.0); HEMOGLOBIN 10.6 g/dL (12.0-16.0); LYMPHOCYTES # (AUTO) 1.4 X10^3/uL (1.3-2.9); LYMPHOCYTES % (AUTO) 14.3 % (21.0-51.0); MEAN CORPUSCULAR HEMOGLOBIN 30.7 pg (27.0-34.0); MEAN CORPUSCULAR HGB CONC 33.7 g/dL (33.0-35.0); MEAN CORPUSCULAR VOLUME 91.2 fL (80.0-100.0); MEAN PLATELET VOLUME 8.5 fL (7.4-11.0); MONOCYTES # (AUTO) 0.9 x10^3/uL (0.3-0.8); MONOCYTES % (AUTO) 9.8 % (0.0-13.0); NEUTROPHILS # (AUTO) 7.2 x10^3/uL (2.2-4.8); NEUTROPHILS % (AUTO) 75.3 % (42.0-75.0); PLATELET COUNT 180 X10^3/uL (150.0-450.0); RED BLOOD COUNT 3.46 X10^6/uL (3.5-5.4); RED CELL DISTRIBUTION WIDTH 15.5 % (11.6-16.5); WHITE BLOOD COUNT 9.6 X10^3/uL (3.6-10.0)
[2018-04-18 19:40] LABS: BLOOD UREA NITROGEN 17 mg/dL (7-18); CALCIUM 8.7 mg/dL (8.5-10.1); CARBON DIOXIDE 21.7 mmol/L (21-32); CHLORIDE 108 mmol/L (98-107); SODIUM 141 mmol/L (136-145); TROPONIN I 0.02 ng/mL (0-1.5); eGFR NON BLACK RACES 50 (>60)
[2018-04-18 19:44] LABS: ALANINE AMINOTRANSFERASE 19 Units/L (12-78); ALBUMIN 3.4 g/dL (3.4-5.0); ALKALINE PHOSPHATASE 94 Units/L (46-116); ASPARTATE AMINO TRANSFERASE 22 Units/L (15-37); CKMB % 1.1 % (<4); CREATINE KINASE 302 Units/L (26-192); CREATINE KINASE MB 3.4 ng/mL (0-4.0); TOTAL PROTEIN 7.4 g/dL (6.4-8.2)
[2018-04-18 19:46] LABS: B-TYPE NATRIURETIC PEPTIDE 131 pg/mL (0-79)
[2018-04-18] MEDS ORDERED: NS 100 ML IV 100 ML IV ONE (20:18)
[2018-04-18] MEDS ORDERED: LASIX IVP STA (21:26)
[2018-04-18] MEDS ORDERED: LASIX ONE (21:43)
[2018-04-18] MEDS ORDERED: LASIX IVP ONE (22:04)
--- NOTE | 2018-04-18 22:07 | CT ---
HISTORY: Shortness of breath, elevated D-dimer.. Study: CTA chest with contrast Comparison: NONE Technique: Multiple axial images of the chest were obtained from the thoracic inlet to the upper abdo men after the administration of IV contrast.. Sagittal and coronal MIP images were reconstructed. Au tomated exposure control (AEC) was utilized to adjust the MA and/or kV according to patient size. Findings: There are no filling defects within the pulmonary arterial branches to suggest pulmonary emboli. The main pulmonary artery is of normal caliber. The ascending thoracic aorta is mildly ectatic measuring 3.5 cm in diameter. It tapers to a normal caliber at the level of the aortic arch.. There is an enlarged right hilar lymph node measuring 17 mm in short axis diameter series 4, image 37 . There is a mass projecting off the lower aspect of the right thyroid lobe extending below the thora cic inlet measuring 5.0 x 2.5 cm. It exerts mild mass effect on the trachea deviating it to the left. there is mild cardiomegaly. No pericardial effusion. The trachea is mildly narrowed at the level of the right thyroid mass, with deviation to the left. Re mainder the central airways are patent. There is moderate upper lobe predominant centrilobular emphys ana. There is atelectasis within the left lower lobe. Patchy ground-glass opacities are noted within the lingula and right middle lobe. No focal airspace opacities are demonstrated. There is mucoid impa ction noted within the airways of the right lower lobe distally. Mild peribronchial interstitial thic kening noted in the lower lobes right more than left. No pleural effusion. No pneumothorax. Limited images through the upper abdomen demonstrate mild dilatation of the common bile duct and intr ahepatic bile ducts. This may be related to patient's age and postcholecystectomy state. Common bile duct measures 12 mm in diameter.. Examination of the osseous structures demonstrates no acute osseous abnormality. IMPRESSION: 1. No pulmonary embolus demonstrated. 2. 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 This results in mild mass eff ect on the trachea, mildly narrowing it and deviating it to the left. 3. Emphysema. 4. Mucoid impaction in the sclerosis of the right lower lobe. Aspiration is not excluded. Mild peribr onchial interstitial thickening also noted in the right lower lobe which suggest bronchitis. 5. Scattered ground-glass opacities are nonspecific and likely represent atelectatic changes. Mild pn eumonitis is not excluded. There is also atelectasis of the left lower lobe.. 6. Dilatation of the intrahepatic and extrahepatic bile ducts, likely related to patient's age and th e postcholecystectomy state. Correlate for clinical signs of biliary obstruction. 7. Ectasia of the ascending thoracic aorta. 8. Right hilar lymphadenopathy. Etiology is uncertain. May be reactive. Attention on follow-up shay frias is recommended. 9. Other findings as above Reported By:
[2018-04-18] MEDS ORDERED: ROCEPHIN VIAL 1 GRAM ONE (23:37)
[2018-04-19] MEDS ORDERED: LEVAQUIN PREMIX IV 500 MG 500 MG/100 ML BAG IV SCH (01:00)
[2018-04-19] MEDS: DUONEB 0.5 MG/3 MG NEB SCH ×3 (01:05→08:36)
[2018-04-19] MEDS ORDERED: NS 500 ML IV 500 ML IV ONE (02:12)
[2018-04-19] MEDS: TYLENOL 325 MG TAB PO PRN ×2 (07:32→19:31)
[2018-04-19] MEDS ORDERED: ULTRAM ONE (09:00)
[2018-04-19] MEDS: ULTRAM PO PRN (09:03)
[2018-04-19] MEDS: XOPENEX 1.25 MG/3 ML NEBULE NEB SCH ×3 (12:02→21:51)
[2018-04-19] MEDS ORDERED: XANAX PO PRN (15:28)
[2018-04-19] MEDS ORDERED: ALBUTEROL SULFATE IN PRN (15:28)
[2018-04-19] MEDS ORDERED: PATIENT'S HOME MEDICATION (Ferrous Sulfate [Ferrous Sulfate] 1 TAB) PO SCH (15:30)
[2018-04-19] MEDS ORDERED: FLUTICASONE SALMETEROL IN SCH (15:30)
[2018-04-19] MEDS: PROTONIX TAB 40 MG PO SCH (15:55)
[2018-04-19] MEDS: MOBIC TAB 15 MG PO SCH (15:55)
[2018-04-19] MEDS: FLONASE NASAL SPRAY ENOSTRIL SCH (15:55)
[2018-04-19] MEDS: TENORMIN PO SCH (15:55)
[2018-04-19] MEDS: NORCO 7.5/325 MG TAB PO PRN (16:02)
[2018-04-19] MEDS ORDERED: VENTOLIN or PROAIR HFA IN PRN (16:09)
[2018-04-19] MEDS ORDERED: SALINE 3% 15 ML NEB TX ONE (16:57)
[2018-04-19] MEDS ORDERED: ADVAIR DISKUS 250/50 IN SCH (21:00)
[2018-04-19] MEDS ORDERED: LEVAQUIN TAB 500 MG PO SCH (21:00)
--- NOTE | 2018-04-19 23:19 | CT ---
CT sinuses without contrast Indication: Headache, purulent sputum Technique: Helical CT images of the paranasal sinuses were obtained without IV contrast. Reformatted images in the coronal and sagittal planes were also generated for review. Comparison: None Findings: The paranasal sinuses and mastoid air cells are clear. No acute maxillofacial fractures are identified. The globes and orbits are unremarkable. The imaged intracranial contents demonstrate no acute abnormality. Impression: Unremarkable CT examination of the paranasal sinuses. Reported By:
[2018-04-20 05:22] LABS: BASOPHILS % (AUTO) 0.1 % (0.2-1.0); HEMATOCRIT 32.9 % (36.0-47.0); HEMOGLOBIN 11.2 g/dL (12.0-16.0); LYMPHOCYTES # (AUTO) 1.7 X10^3/uL (1.3-2.9); LYMPHOCYTES % (AUTO) 15.5 % (21.0-51.0); MEAN CORPUSCULAR HEMOGLOBIN 30.5 pg (27.0-34.0); MEAN CORPUSCULAR VOLUME 89.9 fL (80.0-100.0); MEAN PLATELET VOLUME 8.7 fL (7.4-11.0); MONOCYTES % (AUTO) 9.6 % (0.0-13.0); NEUTROPHILS % (AUTO) 74.8 % (42.0-75.0); PLATELET COUNT 218 X10^3/uL (150.0-450.0); RED BLOOD COUNT 3.67 X10^6/uL (3.5-5.4); RED CELL DISTRIBUTION WIDTH 15.7 % (11.6-16.5); WHITE BLOOD COUNT 10.7 X10^3/uL (3.6-10.0)
[2018-04-20 05:37] LABS: ALANINE AMINOTRANSFERASE 22 Units/L (12-78); ALBUMIN 3.2 g/dL (3.4-5.0); ALKALINE PHOSPHATASE 85 Units/L (46-116); ASPARTATE AMINO TRANSFERASE 26 Units/L (15-37); BLOOD UREA NITROGEN 28 mg/dL (7-18); CALCIUM 8.7 mg/dL (8.5-10.1); CARBON DIOXIDE 25.2 mmol/L (21-32); CHLORIDE 105 mmol/L (98-107); COR CA(FOR HYPOALB) 9.3 mg/dL (8.5-10.1); CREATININE 1.57 mg/dL (0.55-1.02); SODIUM 138 mmol/L (136-145); TOTAL PROTEIN 7.5 g/dL (6.4-8.2); eGFR NON BLACK RACES 33 (>60)
[2018-04-20] MEDS ORDERED: LEVAQUIN PREMIX IV 250 MG 250 MG/50 ML BAG IV SCH (06:00)
[2018-04-20] MEDS: FOLIC ACID TAB 1 MG PO SCH (08:12)
[2018-04-20] MEDS: TENORMIN PO SCH (08:12)
[2018-04-20] MEDS: PROTONIX TAB 40 MG PO SCH (08:13)
[2018-04-20] MEDS: MICRO K EXTEN CAP 10 MEQ PO SCH (08:13)
[2018-04-20] MEDS: FERROUS GLUCONATE PO SCH (08:13)
[2018-04-20] MEDS: MOBIC TAB 15 MG PO SCH (08:13)
[2018-04-20] MEDS: NORCO 7.5/325 MG TAB PO PRN ×2 (08:15→16:49)
[2018-04-20] MEDS: FLONASE NASAL SPRAY ENOSTRIL SCH (08:15)
[2018-04-20] MEDS ORDERED: SOLU-Medrol 40 MG VIAL IVP SCH (09:00)
[2018-04-20] MEDS: XOPENEX 1.25 MG/3 ML NEBULE NEB SCH ×4 (09:10→21:51)
[2018-04-20] MEDS: PULMICORT NEB TX 0.5 MG NEB SCH ×2 (09:30→21:51)
[2018-04-20] MEDS ORDERED: NS 100 ML IV + SPIKE MINIBAG* 100 ML IV ONE (10:22)
[2018-04-20] MEDS: LEVAQUIN PREMIX IV 500 MG 500 MG/100 ML BAG IV SCH (10:29)
[2018-04-20] MEDS: ROCEPHIN VIAL 1 GRAM IVP SCH (10:29)
[2018-04-20] MEDS: SOLU-Medrol 40 MG VIAL IVP SCH ×3 (10:29→21:46)
[2018-04-20 10:30] LABS: ABG BASE EXCESS -2.2 mmol/L (-2.0-2.0); ABG HCO3 22.4 mmol/L (22-26); FRACTIONATED INSPIRED OXYGEN 21
--- NOTE | 2018-04-20 14:00 | PCM.PROG ---
Addendum entered and electronically signed by KATHY ORLANDO 04/20/18 17:46: ASSESSMENT AND PLAN: MULTI-NODULAR GOITER: FNA ON OUTPT BASIS TSH, FREE T4, FREE T3, THYROID ANTIBODIES ORDERED Original Note: Progress Note - Progress Note for Day of Date of Exam: 04/20/18 - Subjective Subjective: 83 WF ER ADMISSION WITH SOB, COPD EXACERBATION. PT STATES SHE HAS HAD PRODUCTIVE COUGH AND WHEEZING, INCREASED SOB. PT CURRENTLY ON PO LEVAQUIN. WILL ADD ROCEPHIN 1GM IV, LEVAQUIN IV, SOLU MEDROL 40 IV Q 8HRS. REPEAT AM CXR, BP AND LIPID CONTROL, ADD BUDESONIDE - Past Medical Family Social History Past Med/Fam/Surg Hx: No changes since H&P Allergies: Allergies No Known Drug Allergies Allergy (Verified 04/18/18 18:28) - Review of Systems ROS: No change since H&P - Vital Signs and I&O's Vital Signs: Temperature 98.7 F Pulse Rate [Right Brachial] 84 Pulse Rate 81 Respiratory Rate 20 Blood Pressure [Right Arm] 92/50 Blood Pressure [Left Arm] 127/81 Blood Pressure 136/81 O2 Sat by Pulse Oximetry 97 Intake and Output: Intake & Output 04/18/18 04/19/18 04/20/18 04/21/18 11:59 11:59 11:59 11:59 Intake Total 540 / 540 700 / 700 Balance 540 / 540 700 / 700 - Physical Exam Oriented: Normal Eyes: Normal Ear: Normal Nose: Normal Throat: Normal Respiratory: Diminished, Wheezes, Rhonchi Cardiovascular: Normal : Normal Auscultation: Bowel Sounds: Normal Palpation: Normal Tenderness: Normal Skin: Decreased Turgur Musculoskeletal: Right, Left, Knee, Back:Lumbar Psychiatric: Normal Mood Description: Anxious Affect: Anxious Speech Pattern: Clear, Appropriate - Laboratory and Diagnostics Result Diagrams: 04/20/18 04:30 04/20/18 04:30 Labs: 04/19/18 17:00 Sputum - Expectorated Sputum Sputum Culture - Preliminary 04/19/18 17:00 Sputum - Expectorated Sputum - Final Laboratory WBC 10.7 X10^3/uL (3.6-10.0) H 04/20/18 04:30 RBC 3.67 X10^6/uL (3.5-5.4) 04/20/18 04:30 Hgb 11.2 g/dL (12.0-16.0) L 04/20/18 04:30 Hct 32.9 % (36.0-47.0) L 04/20/18 04:30 MCV 89.9 fL (80.0-100.0) 04/20/18 04:30 MCH 30.5 pg (27.0-34.0) 04/20/18 04:30 MCHC 34.0 g/dL (33.0-35.0) 04/20/18 04:30 RDW 15.7 % (11.6-16.5) 04/20/18 04:30 Plt Count 218 X10^3/uL (150.0-450.0) 04/20/18 04:30 MPV 8.7 fL (7.4-11.0) 04/20/18 04:30 Neut % (Auto) 74.8 % (42.0-75.0) 04/20/18 04:30 Lymph % (Auto) 15.5 % (21.0-51.0) L 04/20/18 04:30 Moody % (Auto) 9.6 % (0.0-13.0) 04/20/18 04:30 Eos % (Auto) 0.0 % (0.9-2.9) L 04/20/18 04:30 Baso % (Auto) 0.1 % (0.2-1.0) L 04/20/18 04:30 Neut # (Auto) 8.0 x10^3/uL (2.2-4.8) H 04/20/18 04:30 Lymph # (Auto) 1.7 X10^3/uL (1.3-2.9) 04/20/18 04:30 Moody # (Auto) 1.0 x10^3/uL (0.3-0.8) H 04/20/18 04:30 Eos # (Auto) 0.0 x10^3/uL (0.0-0.2) 04/20/18 04:30 Baso # (Auto) 0.0 X10^3/uL (0.0-0.1) 04/20/18 04:30 Absolute Nucleated RBC 0.1 /100WBC 04/20/18 04:30 INR Target Range - 10/06/18 19:05 INR 1.07 (0.8-1.3) 04/18/18 19:05 APTT 34.9 SECONDS (22.9-36.5) 04/18/18 19:05 PTT Comment - 04/18/18 19:05 D-Dimer 705 ng/mL (0-400) H* 04/18/18 19:05 Sample Site Left brachial 04/20/18 10:15 ABG pH 7.390 (7.35-7.45) 04/20/18 10:15 ABG pCO2 37.0 mmHg (35.0-45.0) 04/20/18 10:15 ABG pO2 74.0 mmHg (80.0-100.0) L 04/20/18 10:15 ABG HCO3 22.4 mmol/L (22-26) 04/20/18 10:15 ABG O2 Saturation 95.0 % (90-100) 04/20/18 10:15 ABG Base Excess -2.2 mmol/L (-2.0-2.0) L 04/20/18 10:15 Roman Test Na 04/20/18 10:15 A-a Gradient 29.0 mmHg 04/20/18 10:15 FiO2 21 04/20/18 10:15 Blood Gas Comments Natalie well aw 04/20/18 10:15 Sodium 138 mmol/L (136-145) 04/20/18 04:30 Corrected Sodium TNP 04/20/18 04:30 Potassium 4.1 mmol/L (3.5-5.1) 04/20/18 04:30 Chloride 105 mmol/L (98-107) 04/20/18 04:30 Carbon Dioxide 25.2 mmol/L (21-32) 04/20/18 04:30 BUN 28 mg/dL (7-18) H 04/20/18 04:30 Creatinine 1.57 mg/dL (0.55-1.02) H 04/20/18 04:30 Est GFR (MDRD) Af Amer 40 (>60) L 04/20/18 04:30 Est GFR (MDRD) Non-Af 33 (>60) L 04/20/18 04:30 Glucose 101 mg/dL (65-99) H 04/20/18 04:30 Calcium 8.7 mg/dL (8.5-10.1) 04/20/18 04:30 Corrected Calcium 9.3 mg/dL (8.5-10.1) 04/20/18 04:30 Magnesium 2.0 mg/dL (1.7-2.9) 04/18/18 19:05 Total Bilirubin 0.40 mg/dL (0.2-1.0) 04/20/18 04:30 AST 26 Units/L (15-37) 04/20/18 04:30 ALT 22 Units/L (12-78) 04/20/18 04:30 Alkaline Phosphatase 85 Units/L (46-116) 04/20/18 04:30 Creatine Kinase 302 Units/L (26-192) H 04/18/18 19:05 CK-MB (CK-2) 3.4 ng/mL (0-4.0) 04/18/18 19:05 CK/CKMB % Calc 1.1 % (<4) 04/18/18 19:05 Troponin I 0.02 ng/mL (0-1.5) 04/18/18 19:05 B-Natriuretic Peptide 131 pg/mL (0-79) H 04/18/18 19:05 Total Protein 7.5 g/dL (6.4-8.2) 04/20/18 04:30 Albumin 3.2 g/dL (3.4-5.0) L 04/20/18 04:30 Globulin 4.3 g/dL (2.5-4.5) 04/20/18 04:30 Albumin/Globulin Ratio 0.7 Ratio (1.1-2.1) L 04/20/18 04:30 Triglycerides 20 mg/dL (0-150) 04/19/18 04:27 Cholesterol 164 mg/dL (0-200) 04/19/18 04:27 LDL Cholesterol, Calc 79 mg/dL (0-100) 04/19/18 04:27 HDL Cholesterol 81 mg/dL (40-60) H 04/19/18 04:27 Cholesterol/HDL Ratio 2.0 (0.0-5.0) 04/19/18 04:27 - Plan (1) Chronic obstructive pulmonary disease with acute exacerbation Status: Acute Plan: CONTINUE IV ATBX, LEVAQUIN AND ROCEPHIN. IV SOLU MEDROL, JET NEBS, BUDESONIDE NEBS. SUPPLEMENTAL O2 (2) Congestive heart failure Status: Acute Qualifiers: Heart failure type: unspecified Heart failure chronicity: acute Qualified Code(s): I50.9 - Heart failure, unspecified (3) SHILPI (generalized anxiety disorder) Status: Chronic (4) CAD (coronary artery disease) Status: Chronic (5) Hypertension Status: Chronic
[2018-04-20] MEDS: NS 500 ML IV 500 ML IV ONE (17:07)
[2018-04-20 18:38] LABS: FREE T4 (FREE THYROXINE) 0.81 ng/dL (0.76-1.46); TSH (3RD GENERATION) 0.726 uIU/mL (0.358-3.74)
[2018-04-21 05:12] LABS: BASOPHILS % (AUTO) 0.1 % (0.2-1.0); HEMATOCRIT 32.7 % (36.0-47.0); HEMOGLOBIN 11.1 g/dL (12.0-16.0); LYMPHOCYTES # (AUTO) 0.7 X10^3/uL (1.3-2.9); MEAN CORPUSCULAR HEMOGLOBIN 30.6 pg (27.0-34.0); MEAN CORPUSCULAR HGB CONC 33.8 g/dL (33.0-35.0); MEAN CORPUSCULAR VOLUME 90.6 fL (80.0-100.0); MEAN PLATELET VOLUME 8.1 fL (7.4-11.0); MONOCYTES # (AUTO) 0.2 x10^3/uL (0.3-0.8); MONOCYTES % (AUTO) 2.1 % (0.0-13.0); NEUTROPHILS # (AUTO) 6.2 x10^3/uL (2.2-4.8); NEUTROPHILS % (AUTO) 87.8 % (42.0-75.0); PLATELET COUNT 241 X10^3/uL (150.0-450.0); RED BLOOD COUNT 3.61 X10^6/uL (3.5-5.4); RED CELL DISTRIBUTION WIDTH 15.2 % (11.6-16.5); WHITE BLOOD COUNT 7.1 X10^3/uL (3.6-10.0)
[2018-04-21 05:32] LABS: ALBUMIN 3.1 g/dL (3.4-5.0); CALCIUM 8.8 mg/dL (8.5-10.1); CARBON DIOXIDE 21.4 mmol/L (21-32); COR CA(FOR HYPOALB) 9.5 mg/dL (8.5-10.1); CREATININE 1.44 mg/dL (0.55-1.02); TOTAL PROTEIN 7.2 g/dL (6.4-8.2)
[2018-04-21] MEDS: SOLU-Medrol 40 MG VIAL IVP SCH ×3 (05:40→21:04)
[2018-04-21] MEDS: XOPENEX 1.25 MG/3 ML NEBULE NEB SCH ×4 (08:50→21:11)
[2018-04-21] MEDS: PULMICORT NEB TX 0.5 MG NEB SCH ×2 (08:50→21:11)
[2018-04-21] MEDS: MICRO K EXTEN CAP 10 MEQ PO SCH (09:00)
[2018-04-21] MEDS: LEVAQUIN PREMIX IV 500 MG 500 MG/100 ML BAG IV SCH (09:00)
[2018-04-21] MEDS: TENORMIN PO SCH (09:00)
[2018-04-21] MEDS: MOBIC TAB 15 MG PO SCH (09:00)
[2018-04-21] MEDS: FERROUS GLUCONATE PO SCH (09:00)
[2018-04-21] MEDS: PROTONIX TAB 40 MG PO SCH (09:00)
[2018-04-21] MEDS: FOLIC ACID TAB 1 MG PO SCH (09:00)
[2018-04-21] MEDS: ROCEPHIN VIAL 1 GRAM IVP SCH (09:01)
[2018-04-21] MEDS: FLONASE NASAL SPRAY ENOSTRIL SCH (09:02)
[2018-04-21] MEDS: MUCINEX DM PO SCH ×2 (10:03→21:03)
[2018-04-21] MEDS: MUCOMYST 20% 200 MG/ML NEB SCH ×2 (12:14→21:11)
--- NOTE | 2018-04-21 13:27 | PCM.PROG ---
Progress Note - Progress Note for Day of Date of Exam: 04/21/18 - Subjective Subjective: 83 WF ER ADMISSION WITH SOB, COPD EXACERBATION. PT STATES SHE HAS HAD PRODUCTIVE COUGH AND WHEEZING, INCREASED SOB. PT CURRENTLY ON ROCEPHIN 1GM IV, LEVAQUIN IV, SOLU MEDROL 40 IV Q 8HRS. REPEAT AM CXR, BP AND LIPID CONTROL, BUDESONIDE TO NEBS, SUPPLEMENTAL O2, MUCOMYST NEB AND MUCINEX - Past Medical Family Social History Past Med/Fam/Surg Hx: No changes since H&P Allergies: Allergies No Known Drug Allergies Allergy (Verified 04/18/18 18:28) - Review of Systems ROS: No change since H&P - Vital Signs and I&O's Vital Signs: Temperature 98.7 F Pulse Rate [Right Brachial] 95 Pulse Rate 74 Respiratory Rate 20 Blood Pressure [Right Arm] 140/68 Blood Pressure [Left Arm] 122/58 Blood Pressure 136/81 O2 Sat by Pulse Oximetry 98 Intake and Output: Intake & Output 04/19/18 04/20/18 04/21/18 04/22/18 11:59 11:59 11:59 11:59 Intake Total 540 / 540 700 / 700 3340 / 3340 Balance 540 / 540 700 / 700 3340 / 3340 - Physical Exam Oriented: Normal Eyes: Normal Ear: Normal Nose: Normal Throat: Normal Respiratory: Diminished, Wheezes, Rhonchi Cardiovascular: Normal : Normal Auscultation: Bowel Sounds: Normal Tenderness: Normal Skin: Decreased Turgur Musculoskeletal: Right, Left, Knee, Back:Lumbar Psychiatric: Normal Mood Description: Anxious Affect: Anxious Speech Pattern: Clear, Appropriate - Laboratory and Diagnostics Result Diagrams: 04/21/18 04:42 04/21/18 04:42 Labs: 04/19/18 17:00 Sputum - Expectorated Sputum Sputum Culture - Final 04/19/18 17:00 Sputum - Expectorated Sputum - Final Laboratory WBC 7.1 X10^3/uL (3.6-10.0) 04/21/18 04:42 RBC 3.61 X10^6/uL (3.5-5.4) 04/21/18 04:42 Hgb 11.1 g/dL (12.0-16.0) L 04/21/18 04:42 Hct 32.7 % (36.0-47.0) L 04/21/18 04:42 MCV 90.6 fL (80.0-100.0) 04/21/18 04:42 MCH 30.6 pg (27.0-34.0) 04/21/18 04:42 MCHC 33.8 g/dL (33.0-35.0) 04/21/18 04:42 RDW 15.2 % (11.6-16.5) 04/21/18 04:42 Plt Count 241 X10^3/uL (150.0-450.0) 04/21/18 04:42 MPV 8.1 fL (7.4-11.0) 04/21/18 04:42 Neut % (Auto) 87.8 % (42.0-75.0) H 04/21/18 04:42 Lymph % (Auto) 10.0 % (21.0-51.0) L 04/21/18 04:42 [place] % (Auto) 2.1 % (0.0-13.0) 04/21/18 04:42 Eos % (Auto) 0.0 % (0.9-2.9) L 04/21/18 04:42 Baso % (Auto) 0.1 % (0.2-1.0) L 04/21/18 04:42 Neut # (Auto) 6.2 x10^3/uL (2.2-4.8) H 04/21/18 04:42 Lymph # (Auto) 0.7 X10^3/uL (1.3-2.9) L 04/21/18 04:42 [place] # (Auto) 0.2 x10^3/uL (0.3-0.8) L 04/21/18 04:42 Eos # (Auto) 0.0 x10^3/uL (0.0-0.2) 04/21/18 04:42 Baso # (Auto) 0.0 X10^3/uL (0.0-0.1) 04/21/18 04:42 Absolute Nucleated RBC 0.1 /100WBC 04/21/18 04:42 INR Target Range - 04/18/18 19:05 INR 1.07 (0.8-1.3) 04/18/18 19:05 APTT 34.9 SECONDS (22.9-36.5) 04/18/18 19:05 PTT Comment - 04/18/18 19:05 D-Dimer 705 ng/mL (0-400) H* 04/18/18 19:05 Sample Site Left brachial 04/20/18 10:15 ABG pH 7.390 (7.35-7.45) 04/20/18 10:15 ABG pCO2 37.0 mmHg (35.0-45.0) 04/20/18 10:15 ABG pO2 74.0 mmHg (80.0-100.0) L 04/20/18 10:15 ABG HCO3 22.4 mmol/L (22-26) 04/20/18 10:15 ABG O2 Saturation 95.0 % (90-100) 04/20/18 10:15 ABG Base Excess -2.2 mmol/L (-2.0-2.0) L 04/20/18 10:15 Roman Test Na 04/20/18 10:15 A-a Gradient 29.0 mmHg 04/20/18 10:15 FiO2 21 04/20/18 10:15 Blood Gas Comments Natalie well aw 04/20/18 10:15 Sodium 137 mmol/L (136-145) 04/21/18 04:42 Corrected Sodium 138 mmol/L (136-145) 04/21/18 04:42 Potassium 4.6 mmol/L (3.5-5.1) 04/21/18 04:42 Chloride 106 mmol/L (98-107) 04/21/18 04:42 Carbon Dioxide 21.4 mmol/L (21-32) 04/21/18 04:42 BUN 24 mg/dL (7-18) H 04/21/18 04:42 Creatinine 1.44 mg/dL (0.55-1.02) H 04/21/18 04:42 Est GFR (MDRD) Af Amer 45 (>60) L 04/21/18 04:42 Est GFR (MDRD) Non-Af 37 (>60) L 04/21/18 04:42 Glucose 140 mg/dL (65-99) H 04/21/18 04:42 Calcium 8.8 mg/dL (8.5-10.1) 04/21/18 04:42 Corrected Calcium 9.5 mg/dL (8.5-10.1) 04/21/18 04:42 Magnesium 2.0 mg/dL (1.7-2.9) 04/18/18 19:05 Total Bilirubin 0.20 mg/dL (0.2-1.0) 04/21/18 04:42 AST 22 Units/L (15-37) 04/21/18 04:42 ALT 23 Units/L (12-78) 04/21/18 04:42 Alkaline Phosphatase 77 Units/L (46-116) 04/21/18 04:42 Creatine Kinase 302 Units/L (26-192) H 04/18/18 19:05 CK-MB (CK-2) 3.4 ng/mL (0-4.0) 04/18/18 19:05 CK/CKMB % Calc 1.1 % (<4) 04/18/18 19:05 Troponin I 0.02 ng/mL (0-1.5) 04/18/18 19:05 B-Natriuretic Peptide 131 pg/mL (0-79) H 04/18/18 19:05 Total Protein 7.2 g/dL (6.4-8.2) 04/21/18 04:42 Albumin 3.1 g/dL (3.4-5.0) L 04/21/18 04:42 Globulin 4.1 g/dL (2.5-4.5) 04/21/18 04:42 Albumin/Globulin Ratio 0.8 Ratio (1.1-2.1) L 04/21/18 04:42 Triglycerides 20 mg/dL (0-150) 04/19/18 04:27 Cholesterol 164 mg/dL (0-200) 04/19/18 04:27 LDL Cholesterol, Calc 79 mg/dL (0-100) 04/19/18 04:27 HDL Cholesterol 81 mg/dL (40-60) H 04/19/18 04:27 Cholesterol/HDL Ratio 2.0 (0.0-5.0) 04/19/18 04:27 Free T4 0.81 ng/dL (0.76-1.46) 04/20/18 04:30 TSH 3rd Generation 0.726 uIU/mL (0.358-3.74) 04/20/18 04:30 - Plan (1) Chronic obstructive pulmonary disease with acute exacerbation Status: Acute Plan: CONTINUE IV ATBX, LEVAQUIN AND ROCEPHIN. IV SOLU MEDROL, JET NEBS, BUDESONIDE NEBS. SUPPLEMENTAL O2, MUCOMYST, MUCINEX DM. PULMONARY TOILETING (2) Congestive heart failure Status: Acute Qualifiers: Heart failure type: unspecified Heart failure chronicity: acute Qualified Code(s): I50.9 - Heart failure, unspecified (3) SHILPI (generalized anxiety disorder) Status: Chronic (4) CAD (coronary artery disease) Status: Chronic (5) Hypertension Status: Chronic
[2018-04-21] MEDS: ROBITUSSIN DM PO SCH ×3 (14:01→21:04)
[2018-04-21] MEDS: NS 500 ML IV 500 ML IV ONE (17:46)
[2018-04-21] MEDS: XANAX PO SCH (21:03)
[2018-04-22] MEDS: SOLU-Medrol 40 MG VIAL IVP SCH ×3 (05:14→21:03)
[2018-04-22 05:29] LABS: BASOPHILS % (AUTO) 0.1 % (0.2-1.0); HEMATOCRIT 33.3 % (36.0-47.0); HEMOGLOBIN 11.3 g/dL (12.0-16.0); LYMPHOCYTES # (AUTO) 0.8 X10^3/uL (1.3-2.9); LYMPHOCYTES % (AUTO) 9.3 % (21.0-51.0); MEAN CORPUSCULAR HEMOGLOBIN 30.4 pg (27.0-34.0); MEAN CORPUSCULAR HGB CONC 33.8 g/dL (33.0-35.0); MEAN CORPUSCULAR VOLUME 89.9 fL (80.0-100.0); MEAN PLATELET VOLUME 8.4 fL (7.4-11.0); MONOCYTES # (AUTO) 0.3 x10^3/uL (0.3-0.8); MONOCYTES % (AUTO) 3.7 % (0.0-13.0); NEUTROPHILS # (AUTO) 7.7 x10^3/uL (2.2-4.8); NEUTROPHILS % (AUTO) 86.9 % (42.0-75.0); PLATELET COUNT 251 X10^3/uL (150.0-450.0); RED BLOOD COUNT 3.71 X10^6/uL (3.5-5.4); RED CELL DISTRIBUTION WIDTH 14.9 % (11.6-16.5); WHITE BLOOD COUNT 8.8 X10^3/uL (3.6-10.0)
[2018-04-22 05:45] LABS: CALCIUM 8.6 mg/dL (8.5-10.1); CARBON DIOXIDE 21.9 mmol/L (21-32); COR CA(FOR HYPOALB) 9.4 mg/dL (8.5-10.1); CREATININE 1.28 mg/dL (0.55-1.02)
[2018-04-22] MEDS: FERROUS GLUCONATE PO SCH (09:22)
[2018-04-22] MEDS: LEVAQUIN PREMIX IV 500 MG 500 MG/100 ML BAG IV SCH (09:23)
[2018-04-22] MEDS: FLONASE NASAL SPRAY ENOSTRIL SCH (09:23)
[2018-04-22] MEDS: MOBIC TAB 15 MG PO SCH (09:23)
[2018-04-22] MEDS: MICRO K EXTEN CAP 10 MEQ PO SCH (09:23)
[2018-04-22] MEDS: FOLIC ACID TAB 1 MG PO SCH (09:23)
[2018-04-22] MEDS: ROBITUSSIN DM PO SCH ×4 (09:24→20:01)
[2018-04-22] MEDS: MUCINEX DM PO SCH ×2 (09:24→20:00)
[2018-04-22] MEDS: TENORMIN PO SCH (09:24)
[2018-04-22] MEDS: PROTONIX TAB 40 MG PO SCH (09:24)
[2018-04-22] MEDS: ROCEPHIN VIAL 1 GRAM IVP SCH (09:24)
[2018-04-22] MEDS: XANAX PO SCH ×2 (09:25→20:01)
[2018-04-22] MEDS: PULMICORT NEB TX 0.5 MG NEB SCH ×2 (09:33→20:33)
[2018-04-22] MEDS: MUCOMYST 20% 200 MG/ML NEB SCH ×2 (09:33→20:33)
[2018-04-22] MEDS: XOPENEX 1.25 MG/3 ML NEBULE NEB SCH ×4 (09:33→20:33)
--- NOTE | 2018-04-22 14:45 | PCM.PROG ---
Progress Note - Progress Note for Day of Date of Exam: 04/22/18 - Subjective Subjective: 83 WF ER ADMISSION WITH SOB, COPD EXACERBATION. PT STATES SHE HAS HAD PRODUCTIVE COUGH AND WHEEZING, INCREASED SOB. PT HAS DIFFUSE RHONCHI AND PRODUCTIVE COUGH. PT CURRENTLY ON ROCEPHIN 1GM IV, LEVAQUIN IV, SOLU MEDROL 40 IV Q 8HRS. REPEAT AM CXR, BP AND LIPID CONTROL, BUDESONIDE TO NEBS, ELDER PPLEMENTAL O2, MUCOMYST NEB AND MUCINEX - Past Medical Family Social History Past Med/Fam/Surg Hx: No changes since H&P Allergies: Allergies No Known Drug Allergies Allergy (Verified 04/18/18 18:28) - Review of Systems ROS: No change since H&P - Vital Signs and I&O's Vital Signs: Temperature 98.5 F Pulse Rate [Right Brachial] 92 Pulse Rate 99 Respiratory Rate 20 Blood Pressure [Right Arm] 113/57 Blood Pressure [Left Arm] 122/58 Blood Pressure 136/81 O2 Sat by Pulse Oximetry 98 Intake and Output: Intake & Output 04/20/18 04/21/18 04/22/18 04/23/18 11:59 11:59 11:59 11:59 Intake Total 700 / 700 3340 / 3340 470 / 470 Balance 700 / 700 3340 / 3340 470 / 470 - Physical Exam Oriented: Normal Eyes: Normal Ear: Normal Nose: Normal Throat: Normal Respiratory: Diminished, Wheezes, Rhonchi Cardiovascular: Normal : Normal Auscultation: Bowel Sounds: Normal Tenderness: Normal Skin: Decreased Turgur Musculoskeletal: Right, Left, Knee, Back:Lumbar Psychiatric: Normal Mood Description: Anxious Affect: Anxious Speech Pattern: Clear, Appropriate - Laboratory and Diagnostics Result Diagrams: 04/22/18 04:35 04/22/18 04:35 Labs: 04/19/18 17:00 Sputum - Expectorated Sputum Sputum Culture - Final 04/19/18 17:00 Sputum - Expectorated Sputum - Final Laboratory WBC 8.8 X10^3/uL (3.6-10.0) 04/22/18 04:35 RBC 3.71 X10^6/uL (3.5-5.4) 04/22/18 04:35 Hgb 11.3 g/dL (12.0-16.0) L 04/22/18 04:35 Hct 33.3 % (36.0-47.0) L 04/22/18 04:35 MCV 89.9 fL (80.0-100.0) 04/22/18 04:35 MCH 30.4 pg (27.0-34.0) 04/22/18 04:35 MCHC 33.8 g/dL (33.0-35.0) 04/22/18 04:35 RDW 14.9 % (11.6-16.5) 04/22/18 04:35 Plt Count 251 X10^3/uL (150.0-450.0) 04/22/18 04:35 MPV 8.4 fL (7.4-11.0) 04/22/18 04:35 Neut % (Auto) 86.9 % (42.0-75.0) H 04/22/18 04:35 Lymph % (Auto) 9.3 % (21.0-51.0) L 04/22/18 04:35 Brooks % (Auto) 3.7 % (0.0-13.0) 04/22/18 04:35 Eos % (Auto) 0.0 % (0.9-2.9) L 04/22/18 04:35 Baso % (Auto) 0.1 % (0.2-1.0) L 04/22/18 04:35 Neut # (Auto) 7.7 x10^3/uL (2.2-4.8) H 04/22/18 04:35 Lymph # (Auto) 0.8 X10^3/uL (1.3-2.9) L 04/22/18 04:35 Brooks # (Auto) 0.3 x10^3/uL (0.3-0.8) 04/22/18 04:35 Eos # (Auto) 0.0 x10^3/uL (0.0-0.2) 04/22/18 04:35 Baso # (Auto) 0.0 X10^3/uL (0.0-0.1) 04/22/18 04:35 Absolute Nucleated RBC 0.0 /100WBC 04/22/18 04:35 INR Target Range - 04/18/18 19:05 INR 1.07 (0.8-1.3) 04/18/18 19:05 APTT 34.9 SECONDS (22.9-36.5) 04/18/18 19:05 PTT Comment - 04/18/18 19:05 D-Dimer 705 ng/mL (0-400) H* 04/18/18 19:05 Sample Site Left brachial 04/20/18 10:15 ABG pH 7.390 (7.35-7.45) 04/20/18 10:15 ABG pCO2 37.0 mmHg (35.0-45.0) 04/20/18 10:15 ABG pO2 74.0 mmHg (80.0-100.0) L 04/20/18 10:15 ABG HCO3 22.4 mmol/L (22-26) 04/20/18 10:15 ABG O2 Saturation 95.0 % (90-100) 04/20/18 10:15 ABG Base Excess -2.2 mmol/L (-2.0-2.0) L 04/20/18 10:15 Roman Test Na 04/20/18 10:15 A-a Gradient 29.0 mmHg 04/20/18 10:15 FiO2 21 04/20/18 10:15 Blood Gas Comments Natalie well aw 04/20/18 10:15 Sodium 139 mmol/L (136-145) 04/22/18 04:35 Corrected Sodium 140 mmol/L (136-145) 04/22/18 04:35 Potassium 3.9 mmol/L (3.5-5.1) 04/22/18 04:35 Chloride 107 mmol/L (98-107) 04/22/18 04:35 Carbon Dioxide 21.9 mmol/L (21-32) 04/22/18 04:35 BUN 22 mg/dL (7-18) H 04/22/18 04:35 Creatinine 1.28 mg/dL (0.55-1.02) H 04/22/18 04:35 Est GFR (MDRD) Af Amer 51 (>60) L 04/22/18 04:35 Est GFR (MDRD) Non-Af 42 (>60) L 04/22/18 04:35 Glucose 134 mg/dL (65-99) H 04/22/18 04:35 Calcium 8.6 mg/dL (8.5-10.1) 04/22/18 04:35 Corrected Calcium 9.4 mg/dL (8.5-10.1) 04/22/18 04:35 Magnesium 2.0 mg/dL (1.7-2.9) 04/18/18 19:05 Total Bilirubin 0.30 mg/dL (0.2-1.0) 04/22/18 04:35 AST 25 Units/L (15-37) 04/22/18 04:35 ALT 29 Units/L (12-78) 04/22/18 04:35 Alkaline Phosphatase 70 Units/L (46-116) 04/22/18 04:35 Creatine Kinase 302 Units/L (26-192) H 04/18/18 19:05 CK-MB (CK-2) 3.4 ng/mL (0-4.0) 04/18/18 19:05 CK/CKMB % Calc 1.1 % (<4) 04/18/18 19:05 Troponin I 0.02 ng/mL (0-1.5) 04/18/18 19:05 B-Natriuretic Peptide 131 pg/mL (0-79) H 04/18/18 19:05 Total Protein 7.0 g/dL (6.4-8.2) 04/22/18 04:35 Albumin 3.0 g/dL (3.4-5.0) L 04/22/18 04:35 Globulin 4.0 g/dL (2.5-4.5) 04/22/18 04:35 Albumin/Globulin Ratio 0.8 Ratio (1.1-2.1) L 04/22/18 04:35 Triglycerides 20 mg/dL (0-150) 04/19/18 04:27 Cholesterol 164 mg/dL (0-200) 04/19/18 04:27 LDL Cholesterol, Calc 79 mg/dL (0-100) 04/19/18 04:27 HDL Cholesterol 81 mg/dL (40-60) H 04/19/18 04:27 Cholesterol/HDL Ratio 2.0 (0.0-5.0) 04/19/18 04:27 Free T4 0.81 ng/dL (0.76-1.46) 04/20/18 04:30 TSH 3rd Generation 0.726 uIU/mL (0.358-3.74) 04/20/18 04:30 - Plan (1) Chronic obstructive pulmonary disease with acute exacerbation Status: Acute Plan: CONTINUE IV ATBX, LEVAQUIN AND ROCEPHIN. IV SOLU MEDROL, JET NEBS, BUDESONIDE NEBS. SUPPLEMENTAL O2, MUCOMYST, MUCINEX DM. PULMONARY TOILETING (2) Congestive heart failure Status: Acute Qualifiers: Heart failure type: unspecified Heart failure chronicity: acute Qualified Code(s): I50.9 - Heart failure, unspecified (3) SHILPI (generalized anxiety disorder) Status: Chronic (4) CAD (coronary artery disease) Status: Chronic (5) Hypertension Status: Chronic
[2018-04-22] MEDS: NORCO 7.5/325 MG TAB PO PRN (16:01)
[2018-04-22] MEDS: TYLENOL 325 MG TAB PO PRN (19:46)
[2018-04-23] MEDS: SOLU-Medrol 40 MG VIAL IVP SCH (05:19)
[2018-04-23] MEDS: TYLENOL 325 MG TAB PO PRN ×2 (05:20→20:17)
[2018-04-23 07:01] LABS: BASOPHILS % (AUTO) 0.1 % (0.2-1.0); HEMATOCRIT 31.9 % (36.0-47.0); LYMPHOCYTES # (AUTO) 0.9 X10^3/uL (1.3-2.9); LYMPHOCYTES % (AUTO) 10.6 % (21.0-51.0); MEAN CORPUSCULAR HEMOGLOBIN 31.3 pg (27.0-34.0); MEAN CORPUSCULAR HGB CONC 34.6 g/dL (33.0-35.0); MEAN CORPUSCULAR VOLUME 90.7 fL (80.0-100.0); MEAN PLATELET VOLUME 8.2 fL (7.4-11.0); MONOCYTES # (AUTO) 0.3 x10^3/uL (0.3-0.8); NEUTROPHILS % (AUTO) 85.3 % (42.0-75.0); PLATELET COUNT 236 X10^3/uL (150.0-450.0); RED BLOOD COUNT 3.51 X10^6/uL (3.5-5.4); RED CELL DISTRIBUTION WIDTH 15.2 % (11.6-16.5); WHITE BLOOD COUNT 8.2 X10^3/uL (3.6-10.0)
[2018-04-23 07:17] LABS: ALBUMIN 2.8 g/dL (3.4-5.0); CALCIUM 8.4 mg/dL (8.5-10.1); CARBON DIOXIDE 21.6 mmol/L (21-32); COR CA(FOR HYPOALB) 9.4 mg/dL (8.5-10.1); CREATININE 1.42 mg/dL (0.55-1.02); TOTAL PROTEIN 6.5 g/dL (6.4-8.2)
[2018-04-23] MEDS: MICRO K EXTEN CAP 10 MEQ PO SCH (08:31)
[2018-04-23] MEDS: TENORMIN PO SCH (08:31)
[2018-04-23] MEDS: XANAX PO SCH ×2 (08:31→20:14)
[2018-04-23] MEDS: PROTONIX TAB 40 MG PO SCH (08:31)
[2018-04-23] MEDS: ULTRAM PO PRN (08:31)
[2018-04-23] MEDS: FOLIC ACID TAB 1 MG PO SCH (08:31)
[2018-04-23] MEDS: ROBITUSSIN DM PO SCH ×4 (08:31→20:14)
[2018-04-23] MEDS: MOBIC TAB 15 MG PO SCH (08:31)
[2018-04-23] MEDS: MUCINEX DM PO SCH ×2 (08:31→20:14)
[2018-04-23] MEDS: LEVAQUIN PREMIX IV 500 MG 500 MG/100 ML BAG IV SCH (08:32)
[2018-04-23] MEDS: FERROUS GLUCONATE PO SCH (08:32)
[2018-04-23] MEDS: FLONASE NASAL SPRAY ENOSTRIL SCH (08:32)
[2018-04-23] MEDS: ROCEPHIN VIAL 1 GRAM IVP SCH (08:32)
[2018-04-23] MEDS: MUCOMYST 20% 200 MG/ML NEB SCH ×2 (09:20→21:00)
[2018-04-23] MEDS: XOPENEX 1.25 MG/3 ML NEBULE NEB SCH ×4 (09:20→21:00)
[2018-04-23] MEDS: PULMICORT NEB TX 0.5 MG NEB SCH ×2 (09:20→21:00)
--- NOTE | 2018-04-23 17:26 | PCM.PROG ---
Progress Note - Progress Note for Day of Date of Exam: 04/23/18 - Subjective Subjective: 83 WF ER ADMISSION WITH SOB, COPD EXACERBATION. PT STATES SHE HAS HAD PRODUCTIVE COUGH AND WHEEZING.PT CURRENTLY ON ROCEPHIN 1GM IV, LEVAQUIN IV, SOLU MEDROL 40 IV Q 8HRS, WARM HUMIDIFIED O2. PT CHEST CONGESTION IMPROVED THIS AM AND PT REPORTS SHE FEELS SOME BETTER. REPEAT AM CXR, BP AND LIPID CONTROL, BUDESONIDE TO NEBS, SUPPLEMENTAL O2, MUCOMYST NEB AND MUCINEX - Past Medical Family Social History Past Med/Fam/Surg Hx: No changes since H&P Allergies: Allergies No Known Drug Allergies Allergy (Verified 04/18/18 18:28) - Review of Systems ROS: No change since H&P - Vital Signs and I&O's Vital Signs: Temperature 98.8 F Pulse Rate [Right Brachial] 94 Pulse Rate 94 Respiratory Rate 20 Blood Pressure [Right Arm] 99/56 Blood Pressure [Left Arm] 122/58 Blood Pressure 136/81 O2 Sat by Pulse Oximetry 98 Intake and Output: Intake & Output 04/21/18 04/22/18 04/23/18 04/24/18 11:59 11:59 11:59 11:59 Intake Total 3340 / 3340 470 / 470 700 / 700 540 / 540 Balance 3340 / 3340 470 / 470 700 / 700 540 / 540 - Physical Exam Oriented: Normal Eyes: Normal Ear: Normal Nose: Normal Throat: Normal Respiratory: Diminished, Rhonchi (MILD CENTRAL) Cardiovascular: Normal : Normal Auscultation: Bowel Sounds: Normal Tenderness: Normal Skin: Decreased Turgur Musculoskeletal: Right, Left, Knee, Back:Lumbar Psychiatric: Normal Mood Description: Anxious Affect: Anxious Speech Pattern: Clear, Appropriate - Laboratory and Diagnostics Result Diagrams: 04/23/18 05:53 04/23/18 05:53 Labs: 04/19/18 17:00 Sputum - Expectorated Sputum Sputum Culture - Final 04/19/18 17:00 Sputum - Expectorated Sputum - Final Laboratory WBC 8.2 X10^3/uL (3.6-10.0) 04/23/18 05:53 RBC 3.51 X10^6/uL (3.5-5.4) 04/23/18 05:53 Hgb 11.0 g/dL (12.0-16.0) L 04/23/18 05:53 Hct 31.9 % (36.0-47.0) L 04/23/18 05:53 MCV 90.7 fL (80.0-100.0) 04/23/18 05:53 MCH 31.3 pg (27.0-34.0) 04/23/18 05:53 MCHC 34.6 g/dL (33.0-35.0) 04/23/18 05:53 RDW 15.2 % (11.6-16.5) 04/23/18 05:53 Plt Count 236 X10^3/uL (150.0-450.0) 04/23/18 05:53 MPV 8.2 fL (7.4-11.0) 04/23/18 05:53 Neut % (Auto) 85.3 % (42.0-75.0) H 04/23/18 05:53 Lymph % (Auto) 10.6 % (21.0-51.0) L 04/23/18 05:53 [place]ard % (Auto) 4.0 % (0.0-13.0) 04/23/18 05:53 Eos % (Auto) 0.0 % (0.9-2.9) L 04/23/18 05:53 Baso % (Auto) 0.1 % (0.2-1.0) L 04/23/18 05:53 Neut # (Auto) 7.0 x10^3/uL (2.2-4.8) H 04/23/18 05:53 Lymph # (Auto) 0.9 X10^3/uL (1.3-2.9) L 04/23/18 05:53 [place]ard # (Auto) 0.3 x10^3/uL (0.3-0.8) 04/23/18 05:53 Eos # (Auto) 0.0 x10^3/uL (0.0-0.2) 04/23/18 05:53 Baso # (Auto) 0.0 X10^3/uL (0.0-0.1) 04/23/18 05:53 Absolute Nucleated RBC 0.0 /100WBC 04/23/18 05:53 INR Target Range - 04/18/18 19:05 INR 1.07 (0.8-1.3) 04/18/18 19:05 APTT 34.9 SECONDS (22.9-36.5) 04/18/18 19:05 PTT Comment - 04/18/18 19:05 D-Dimer 705 ng/mL (0-400) H* 04/18/18 19:05 Sample Site Left brachial 04/20/18 10:15 ABG pH 7.390 (7.35-7.45) 04/20/18 10:15 ABG pCO2 37.0 mmHg (35.0-45.0) 04/20/18 10:15 ABG pO2 74.0 mmHg (80.0-100.0) L 04/20/18 10:15 ABG HCO3 22.4 mmol/L (22-26) 04/20/18 10:15 ABG O2 Saturation 95.0 % (90-100) 04/20/18 10:15 ABG Base Excess -2.2 mmol/L (-2.0-2.0) L 04/20/18 10:15 Roman Test Na 04/20/18 10:15 A-a Gradient 29.0 mmHg 04/20/18 10:15 FiO2 21 04/20/18 10:15 Blood Gas Comments Natalie well aw 04/20/18 10:15 Sodium 138 mmol/L (136-145) 04/23/18 05:53 Corrected Sodium 139 mmol/L (136-145) 04/23/18 05:53 Potassium 4.0 mmol/L (3.5-5.1) 04/23/18 05:53 Chloride 105 mmol/L (98-107) 04/23/18 05:53 Carbon Dioxide 21.6 mmol/L (21-32) 04/23/18 05:53 BUN 22 mg/dL (7-18) H 04/23/18 05:53 Creatinine 1.42 mg/dL (0.55-1.02) H 04/23/18 05:53 Est GFR (MDRD) Af Amer 45 (>60) L 04/23/18 05:53 Est GFR (MDRD) Non-Af 37 (>60) L 04/23/18 05:53 Glucose 158 mg/dL (65-99) H 04/23/18 05:53 Calcium 8.4 mg/dL (8.5-10.1) L 04/23/18 05:53 Corrected Calcium 9.4 mg/dL (8.5-10.1) 04/23/18 05:53 Magnesium 2.0 mg/dL (1.7-2.9) 04/18/18 19:05 Total Bilirubin 0.20 mg/dL (0.2-1.0) 04/23/18 05:53 AST 23 Units/L (15-37) 04/23/18 05:53 ALT 34 Units/L (12-78) 04/23/18 05:53 Alkaline Phosphatase 66 Units/L (46-116) 04/23/18 05:53 Creatine Kinase 302 Units/L (26-192) H 04/18/18 19:05 CK-MB (CK-2) 3.4 ng/mL (0-4.0) 04/18/18 19:05 CK/CKMB % Calc 1.1 % (<4) 04/18/18 19:05 Troponin I 0.02 ng/mL (0-1.5) 04/18/18 19:05 B-Natriuretic Peptide 131 pg/mL (0-79) H 04/18/18 19:05 Total Protein 6.5 g/dL (6.4-8.2) 04/23/18 05:53 Albumin 2.8 g/dL (3.4-5.0) L 04/23/18 05:53 Globulin 3.7 g/dL (2.5-4.5) 04/23/18 05:53 Albumin/Globulin Ratio 0.8 Ratio (1.1-2.1) L 04/23/18 05:53 Triglycerides 20 mg/dL (0-150) 04/19/18 04:27 Cholesterol 164 mg/dL (0-200) 04/19/18 04:27 LDL Cholesterol, Calc 79 mg/dL (0-100) 04/19/18 04:27 HDL Cholesterol 81 mg/dL (40-60) H 04/19/18 04:27 Cholesterol/HDL Ratio 2.0 (0.0-5.0) 04/19/18 04:27 Free T4 0.81 ng/dL (0.76-1.46) 04/20/18 04:30 Free T3 pg/dL 1.8 pg/mL (2.4-4.2) L 04/20/18 04:30 TSH 3rd Generation 0.726 uIU/mL (0.358-3.74) 04/20/18 04:30 Thyroglobulin Antibody <0.9 IU/mL (0.0-4.0) 04/20/18 04:30 - Plan (1) Chronic obstructive pulmonary disease with acute exacerbation Status: Acute Plan: CONTINUE IV ATBX, LEVAQUIN AND ROCEPHIN. IV SOLU MEDROL, JET NEBS, BUDESONIDE NEBS. SUPPLEMENTAL O2, MUCOMYST, MUCINEX DM. PULMONARY TOILETING (2) Congestive heart failure Status: Acute Qualifiers: Heart failure type: unspecified Heart failure chronicity: acute Qualified Code(s): I50.9 - Heart failure, unspecified (3) SHILPI (generalized anxiety disorder) Status: Chronic (4) CAD (coronary artery disease) Status: Chronic (5) Hypertension Status: Chronic
[2018-04-24 05:45] LABS: BASOPHILS % (AUTO) 0.1 % (0.2-1.0); HEMATOCRIT 31.2 % (36.0-47.0); HEMOGLOBIN 10.4 g/dL (12.0-16.0); LYMPHOCYTES # (AUTO) 2.1 X10^3/uL (1.3-2.9); LYMPHOCYTES % (AUTO) 18.2 % (21.0-51.0); MEAN CORPUSCULAR HEMOGLOBIN 30.5 pg (27.0-34.0); MEAN CORPUSCULAR HGB CONC 33.5 g/dL (33.0-35.0); MEAN CORPUSCULAR VOLUME 91.1 fL (80.0-100.0); MEAN PLATELET VOLUME 8.1 fL (7.4-11.0); MONOCYTES # (AUTO) 1.1 x10^3/uL (0.3-0.8); MONOCYTES % (AUTO) 9.5 % (0.0-13.0); NEUTROPHILS # (AUTO) 8.4 x10^3/uL (2.2-4.8); NEUTROPHILS % (AUTO) 72.2 % (42.0-75.0); PLATELET COUNT 225 X10^3/uL (150.0-450.0); RED BLOOD COUNT 3.42 X10^6/uL (3.5-5.4); RED CELL DISTRIBUTION WIDTH 14.8 % (11.6-16.5); WHITE BLOOD COUNT 11.6 X10^3/uL (3.6-10.0)
[2018-04-24 06:03] LABS: ALANINE AMINOTRANSFERASE 62 Units/L (12-78); ALBUMIN 2.5 g/dL (3.4-5.0); ALKALINE PHOSPHATASE 73 Units/L (46-116); ASPARTATE AMINO TRANSFERASE 38 Units/L (15-37); BLOOD UREA NITROGEN 26 mg/dL (7-18); CALCIUM 8.3 mg/dL (8.5-10.1); CARBON DIOXIDE 22.9 mmol/L (21-32); CHLORIDE 107 mmol/L (98-107); COR CA(FOR HYPOALB) 9.5 mg/dL (8.5-10.1); SODIUM 139 mmol/L (136-145); eGFR NON BLACK RACES 38 (>60)
[2018-04-24] MEDS: PROTONIX TAB 40 MG PO SCH (08:09)
[2018-04-24] MEDS: ROBITUSSIN DM PO SCH ×2 (08:09→13:15)
[2018-04-24] MEDS: ROCEPHIN VIAL 1 GRAM IVP SCH (08:10)
[2018-04-24] MEDS: MICRO K EXTEN CAP 10 MEQ PO SCH (08:10)
[2018-04-24] MEDS: MUCINEX DM PO SCH (08:10)
[2018-04-24] MEDS: XANAX PO SCH (08:10)
[2018-04-24] MEDS: FOLIC ACID TAB 1 MG PO SCH (08:10)
[2018-04-24] MEDS: TENORMIN PO SCH (08:11)
[2018-04-24] MEDS: LEVAQUIN PREMIX IV 500 MG 500 MG/100 ML BAG IV SCH (08:11)
[2018-04-24] MEDS: FLONASE NASAL SPRAY ENOSTRIL SCH (08:11)
[2018-04-24] MEDS: FERROUS GLUCONATE PO SCH (08:11)
[2018-04-24] MEDS: MOBIC TAB 15 MG PO SCH (08:11)
--- NOTE | 2018-04-24 09:17 | RAD ---
Examination: AP chest History: Cough Comparison 04/22/2018 Findings: Normal heart size with sternal wires. No acute pulmonary or pleural lesion noted. Prominent interstitial pulmonary pattern in the right lower lung. No definite pneumonia or pleural fluid. [place] llic clothing artifacts are projected over the chest and central mediastinum. Impression: No change or acute findings. Reported By:
[2018-04-24] MEDS: PULMICORT NEB TX 0.5 MG NEB SCH (09:45)
[2018-04-24] MEDS: XOPENEX 1.25 MG/3 ML NEBULE NEB SCH ×2 (09:45→12:05)
[2018-04-24] MEDS: NORCO 7.5/325 MG TAB PO PRN (10:49)
[2018-04-24 11:08] LABS: CKMB % 2.4 % (<4); CREATINE KINASE MB 1.2 ng/mL (0-4.0); TROPONIN I 0.02 ng/mL (0-1.5)
[2018-04-24] MEDS ORDERED: LASIX IVP ONE (11:30)
[2018-04-24 11:59] VITALS: BP 93/52
== END 2018-04-24 13:35 | disposition home or self-care (01) | DRG 190 ==
LOC: MED/SURG 18:27 → ER 18:27 → OBSVTOIN 04-19 00:40 → MED/SURG 04-19 01:11
PROVIDERS: ADMIT Obstetrics & Gynecology Obstetrics; ATTEND Internal Medicine
DX: I25.10 Atherosclerotic heart disease of native coronary artery without angina pectoris; J43.9 Emphysema, unspecified; I10 Essential (primary) hypertension; F41.1 Generalized anxiety disorder; E04.9 Nontoxic goiter, unspecified; J44.1 Chronic obstructive pulmonary disease with (acute) exacerbation; M19.90 Unspecified osteoarthritis, unspecified site; J18.9 Pneumonia, unspecified organism; R06.02 Shortness of breath; R51 Headache; I50.9 Heart failure, unspecified; R07.9 Chest pain, unspecified
CPT/HCPCS: 36415; 36600; 70486; 71010; 71045; 71275; 80053; 80061; 82550; 82553; 82803; 83735; 83880; 84439; 84443; 84481; 84484; 85025; 85378; 85610; 85730; 86800; 87070; 87205; 93005; 93010; 94640; 94669; 94760; 96365; 96374; 96375; 99284; 99285; A4216; A4222; J0696; J1940; J1956; J2920; J2930; J3490; J7040; J7050; J7608; J7620; J7626

== ENCOUNTER 2019-08-09 14:29 | Observation (INO) ==
[2019-08-09] MEDS: NS 1000 ML 1,000 ML IV SCH (15:56)
[2019-08-09 15:58] LABS: ABG BASE EXCESS -1.6 mmol/L (-2.0-2.0); ABG HCO3 22.9 mmol/L (22-26)
[2019-08-09 16:08] LABS: BASOPHILS % (AUTO) 0.5 % (0.2-1.0); EOSINOPHILS % (AUTO) 0.6 % (0.9-2.9); HEMATOCRIT 33.7 % (36.0-47.0); HEMOGLOBIN 11.1 g/dL (12.0-16.0); LYMPHOCYTES # (AUTO) 1.7 X10^3/uL (1.3-2.9); LYMPHOCYTES % (AUTO) 25.9 % (21.0-51.0); MEAN CORPUSCULAR HEMOGLOBIN 30.7 pg (27.0-34.0); MEAN CORPUSCULAR VOLUME 92.8 fL (80.0-100.0); MEAN PLATELET VOLUME 7.8 fL (7.4-11.0); MONOCYTES # (AUTO) 0.7 x10^3/uL (0.3-0.8); MONOCYTES % (AUTO) 11.3 % (0.0-13.0); NEUTROPHILS % (AUTO) 61.7 % (42.0-75.0); PLATELET COUNT 256 X10^3/uL (150.0-450.0); RED BLOOD COUNT 3.63 X10^6/uL (3.5-5.4); RED CELL DISTRIBUTION WIDTH 16.2 % (11.6-16.5); WHITE BLOOD COUNT 6.5 X10^3/uL (3.6-10.0)
[2019-08-09 16:24] LABS: ALANINE AMINOTRANSFERASE 17 Units/L (12-78); ALBUMIN 3.7 g/dL (3.4-5.0); ALKALINE PHOSPHATASE 119 Units/L (46-116); ASPARTATE AMINO TRANSFERASE 16 Units/L (15-37); BLOOD UREA NITROGEN 16 mg/dL (7-18); CALCIUM 8.6 mg/dL (8.5-10.1); CHLORIDE 105 mmol/L (98-107); CREATININE 1.02 mg/dL (0.55-1.02); SODIUM 138 mmol/L (136-145); TOTAL PROTEIN 8.1 g/dL (6.4-8.2); eGFR NON BLACK RACES 55 (>60)
[2019-08-09] MEDS: PROVENTIL NEB TX 0.083% 2.5MG/ 3ML NEB SCH ×2 (16:52→21:30)
--- NOTE | 2019-08-09 17:01 | RAD ---
HISTORYPNEUMONIASTUDYCHEST x-ray, PA/LAT ADULTCOMPARISONX-ray 07/07/2019FINDINGSPatient has had prior cardiac surgery. CHF is suspected but heart size is decreased from prior study. No pulmonary edema or pleural effusion is seen. There is vague left lower lobe density that may be atelectasis or pneumonia, likely new since prior study. No pneumothorax is seen. Prominence of right paratracheal soft tissues is similar to prior exam, likely associated with enlarged thyroid.IMPRESSIONPossible new atelectasis or pneumonia in the left lower lung. Mild persistent CHF is improved.Electronically signed by: John Aguilar (Aug 09, 2019 17:00:31)
[2019-08-09] MEDS: ROBITUSSIN DM PO SCH ×2 (17:09→20:37)
[2019-08-09] MEDS ORDERED: POTASSIUM CHL 40 MEQ/NS 0.45% 500 ML IV PRN (17:37)
[2019-08-09] MEDS ORDERED: KLOR-CON PO PRN (17:37)
[2019-08-09] MEDS ORDERED: POTASSIUM CHLORIDE LIQ 20 MEQ UDC PO PRN (17:37)
[2019-08-09] MEDS ORDERED: K-DUR TAB 20 MEQ PO PRN (17:37)
[2019-08-09] MEDS ORDERED: K-RIDER 10 MEQ/NS 100 ML 10 MEQ/100 ML BAG IV PRN (17:37)
[2019-08-09] MEDS ORDERED: MICRO K EXTEN CAP 10 MEQ PO PRN (17:37)
[2019-08-09] MEDS ORDERED: POTASSIUM CHL 60 MEQ/NS 0.45% 500 ML IV PRN (17:37)
[2019-08-09] MEDS ORDERED: XANAX PO PRN (17:49)
[2019-08-09 17:52] VITALS: BMI 19.9
--- NOTE | 2019-08-09 17:55 | DR.H&P ---
H&P - History & Physical for Day of: H&P Date: 08/09/19 - Chief Complaint Chief Complaint: FEVER, CCC, WHEEZING - History of Present Illness History of Present Illness: PT IS 84 BF DIRECT ADMIT FROM DR PUGA OFFICE WITH AB WITH COPD FAILED OUTPT THERAPY WITH IM ROCEPHIN AND PO LEVAQUIN. PT HAD PMH OF COPD, CHF, CAD, OA, GLAUCOMA, HTN. PT ADMITTED FOR TREATMENT OF ACUTE BRONCHOPNEUMONIA. - Past Medical History Past Medical History: Coronary Artery Disease, Hypertension, Anxiety, COPD, GERD, Arthritis - Past Surgical History Surgical History: Angioplasty/Stents, CABG/Valve Surgery, Cholecystectomy, Hysterectomy, Ortho Surgery - Family History Family Medical History: Cancer - Social History Does patient currently use any type of tobacco product: No Have you used tobacco products in the last 12 months: No Type of Tobacco Use: None Does any household member use tobacco: No Alcohol Use: None Drug Use: None Risks, benefits, and alternatives of opioids discussed: Yes Prescription drug monitoring program results: PDMP reviewed and no concerns identified - Medications Home Medications: No Known Drug Allergies Allergy (Verified 04/18/18 18:28) CONTINUE taking the following medications albuterol sulfate [ProAir HFA] 1 puff INHALATION BID 08/09/19 [History] furosemide [Lasix] 20 mg PO DAILY 08/09/19 [History] hydrocodone-acetaminophen 1 tab PO TID PRN 08/09/19 [History] metoprolol succinate 25 mg PO DAILY 08/09/19 [History] - Review of Systems Constitutional: Fever, Chills, Weakness Eyes: No Symptoms Reported, Vision Change (LEFT EYE, DUE TO RECENT EYE SURGERY) ENT: No Symptoms Reported Respiratory: Cough, Shortness of Breath, SOB with Excertion, Sputum, Wheezing Cardiovascular: denies: Edema Gastrointestinal: No Symptoms Reported Genitourinary: No Symptoms Reported Musculoskeletal: Back Pain, Leg Pain Skin: No Symptoms Reported Neurological: Weakness - Physical Exam Vital Signs: Temperature 98.7 F Pulse Rate [Right Brachial] 92 Pulse Rate 85 Respiratory Rate 22 Blood Pressure [Right Arm] 138/74 Blood Pressure [Left Arm] 93/52 Blood Pressure 103/58 O2 Sat by Pulse Oximetry 100 Oriented: Normal Eyes: Blurred Vision (LEFT EYE, CHRONIC) Ear: Normal Nose: Normal Throat: Dry Respiratory: Diminished Throughout, Rhonchi Throughout, Wheezes Throughout Cardiovascular: Normal. negative: Edema : Normal Auscultation: Bowel Sounds: Normal Palpation: Normal Tenderness: Normal Skin: Decreased Turgur Musculoskeletal: Right, Left, Knee, Back:Lumbar Psychiatric: Anxiety Affect: Anxious Speech Pattern: Clear, Appropriate - Assessment/Plan (1) Bronchopneumonia Status: Acute Plan: ADMIT, PNEUMONIA PROTOCOL. IV ATBX, RESP THERAPY, SUPPLEMENTAL O2. SPUTUM AND BLOOD CULTURES ON ADMISSION. ABG, CXR ON ADMISSION. VERIFY HOME MEDICATIONS, CARDIAC MONITORING (2) COPD with exacerbation Status: Acute (3) Congestive heart failure Qualifiers: Heart failure type: unspecified Heart failure chronicity: acute Qualified Code(s): I50.9 - Heart failure, unspecified Status: Acute (4) Arthritis Status: Chronic (5) CAD (coronary artery disease) Status: Chronic (6) SHILPI (generalized anxiety disorder) Status: Chronic (7) Glaucoma Status: Chronic (8) Hx of CABG Status: Chronic - Allergies Allergies/Adverse Reactions: Allergies Allergy/AdvReac Type Severity Reaction Status Date / Time No Known Drug Allergies Allergy Verified 04/18/18 18:28
[2019-08-09] MEDS: PROTONIX TAB 40 MG PO SCH (20:37)
[2019-08-09] MEDS: COLACE CAP 100 MG PO SCH (20:37)
[2019-08-09] MEDS: TYLENOL 325 MG TAB PO PRN (20:53)
[2019-08-09] MEDS: SOLU-Medrol 40 MG VIAL IVP SCH (21:01)
[2019-08-10] MEDS: PROVENTIL NEB TX 0.083% 2.5MG/ 3ML NEB SCH ×6 (00:35→20:06)
[2019-08-10 05:05] LABS: BASOPHILS % (AUTO) 0.1 % (0.2-1.0); HEMATOCRIT 29.9 % (36.0-47.0); HEMOGLOBIN 10.1 g/dL (12.0-16.0); LYMPHOCYTES # (AUTO) 0.3 X10^3/uL (1.3-2.9); LYMPHOCYTES % (AUTO) 4.9 % (21.0-51.0); MEAN CORPUSCULAR HEMOGLOBIN 31.2 pg (27.0-34.0); MEAN CORPUSCULAR HGB CONC 33.7 g/dL (33.0-35.0); MEAN CORPUSCULAR VOLUME 92.8 fL (80.0-100.0); MEAN PLATELET VOLUME 7.9 fL (7.4-11.0); MONOCYTES # (AUTO) 0.1 x10^3/uL (0.3-0.8); MONOCYTES % (AUTO) 1.1 % (0.0-13.0); NEUTROPHILS # (AUTO) 5.2 x10^3/uL (2.2-4.8); NEUTROPHILS % (AUTO) 93.9 % (42.0-75.0); PLATELET COUNT 226 X10^3/uL (150.0-450.0); RED BLOOD COUNT 3.22 X10^6/uL (3.5-5.4); RED CELL DISTRIBUTION WIDTH 16.1 % (11.6-16.5); WHITE BLOOD COUNT 5.5 X10^3/uL (3.6-10.0)
[2019-08-10] MEDS: SOLU-Medrol 40 MG VIAL IVP SCH ×2 (05:14→13:05)
[2019-08-10] MEDS: NS 1000 ML 1,000 ML IV SCH ×3 (05:14→20:03)
[2019-08-10 05:15] LABS: ALBUMIN 2.9 g/dL (3.4-5.0); CALCIUM 8.4 mg/dL (8.5-10.1); CARBON DIOXIDE 19.6 mmol/L (21-32); COR CA(FOR HYPOALB) 9.3 mg/dL (8.5-10.1); CREATININE 1.21 mg/dL (0.55-1.02); TOTAL PROTEIN 6.7 g/dL (6.4-8.2)
[2019-08-10 05:40] LABS: PLATELET MORPHOLOGY COMMENT NORMAL (NORMAL)
[2019-08-10] MEDS ORDERED: LEVAQUIN PREMIX IV 500 MG 500 MG/100 ML BAG IV NR (09:00)
[2019-08-10] MEDS: PROTONIX TAB 40 MG PO SCH ×2 (09:51→20:09)
[2019-08-10] MEDS: ROBITUSSIN DM PO SCH ×4 (09:51→20:09)
[2019-08-10] MEDS: TOPROL XL PO SCH (09:51)
[2019-08-10] MEDS: MICRO K EXTEN CAP 10 MEQ PO SCH (09:51)
[2019-08-10] MEDS: LASIX PO SCH (09:51)
[2019-08-10] MEDS: TYLENOL 325 MG TAB PO PRN ×2 (11:25→20:10)
[2019-08-10] MEDS: LOVENOX INJ 30 MG SYR SC SCH (13:04)
[2019-08-10] MEDS: COLACE CAP 100 MG PO SCH (20:09)
[2019-08-11] MEDS: PROVENTIL NEB TX 0.083% 2.5MG/ 3ML NEB SCH ×6 (00:10→20:05)
[2019-08-11 05:27] LABS: BASOPHILS % (AUTO) 0.1 % (0.2-1.0); HEMOGLOBIN 9.4 g/dL (12.0-16.0); LYMPHOCYTES # (AUTO) 0.7 X10^3/uL (1.3-2.9); LYMPHOCYTES % (AUTO) 5.5 % (21.0-51.0); MEAN CORPUSCULAR HGB CONC 33.5 g/dL (33.0-35.0); MEAN CORPUSCULAR VOLUME 92.6 fL (80.0-100.0); MEAN PLATELET VOLUME 7.9 fL (7.4-11.0); MONOCYTES # (AUTO) 0.5 x10^3/uL (0.3-0.8); MONOCYTES % (AUTO) 3.8 % (0.0-13.0); NEUTROPHILS # (AUTO) 12.1 x10^3/uL (2.2-4.8); NEUTROPHILS % (AUTO) 90.6 % (42.0-75.0); PLATELET COUNT 216 X10^3/uL (150.0-450.0); RED BLOOD COUNT 3.03 X10^6/uL (3.5-5.4); RED CELL DISTRIBUTION WIDTH 16.3 % (11.6-16.5); WHITE BLOOD COUNT 13.3 X10^3/uL (3.6-10.0)
[2019-08-11 05:43] LABS: ALBUMIN 2.8 g/dL (3.4-5.0); CALCIUM 7.8 mg/dL (8.5-10.1); CARBON DIOXIDE 20.4 mmol/L (21-32); COR CA(FOR HYPOALB) 8.8 mg/dL (8.5-10.1); CREATININE 1.12 mg/dL (0.55-1.02); TOTAL PROTEIN 6.3 g/dL (6.4-8.2)
[2019-08-11] MEDS: NS 1000 ML 1,000 ML IV SCH (05:46)
[2019-08-11] MEDS ORDERED: KLOR-CON PO PRN (05:52)
[2019-08-11] MEDS ORDERED: POTASSIUM CHL 60 MEQ/NS 0.45% 500 ML IV PRN (05:52)
[2019-08-11] MEDS ORDERED: POTASSIUM CHL 40 MEQ/NS 0.45% 500 ML IV PRN (05:52)
[2019-08-11] MEDS ORDERED: MICRO K EXTEN CAP 10 MEQ PO PRN (05:52)
[2019-08-11] MEDS ORDERED: POTASSIUM CHLORIDE LIQ 20 MEQ UDC PO PRN (05:52)
[2019-08-11] MEDS ORDERED: K-RIDER 10 MEQ/NS 100 ML 10 MEQ/100 ML BAG IV PRN (05:52)
[2019-08-11] MEDS ORDERED: K-DUR TAB 20 MEQ PO PRN (05:52)
[2019-08-11 06:07] LABS: BAND NEUTROPHILS % 1 % (0-10); PLATELET MORPHOLOGY COMMENT NORMAL (NORMAL)
[2019-08-11] MEDS: MAGNESIUM SULFATE 1 GRAM/100 mL PREMIX 1 GM/100 ML BAG IV PRN ×2 (06:30→08:10)
--- NOTE | 2019-08-11 07:19 | RAD ---
HISTORYFollow-up bronchitisSTUDYCHEST, 1 [id number] is status post median sternotomy. The heart is enlarged. No congestive heart failure is noted. The lungs are mildly hyperinflated but free of acute alveolar infiltrates. Interstitial lung changes are present. Prominence of the right paratracheal soft tissues is again identified and is stable. Bony thorax is unremarkable.IMPRESSIONCardiomegaly without congestive heart failureInterstitial lung changes, stableHyperinflation consistent with COPD in the appropriate clinical settingElectronically signed by: CHAN BOGGS (Aug 11, 2019 07:19:10)
[2019-08-11] MEDS: MICRO K EXTEN CAP 10 MEQ PO SCH ×2 (08:12→10:59)
[2019-08-11] MEDS: LEVAQUIN PREMIX IV 250 MG 250 MG/50 ML BAG IV SCH (08:12)
[2019-08-11] MEDS: LASIX PO SCH (08:12)
[2019-08-11] MEDS: ROBITUSSIN DM PO SCH ×4 (08:12→20:12)
[2019-08-11] MEDS: LOVENOX INJ 30 MG SYR SC SCH (08:13)
[2019-08-11] MEDS: TOPROL XL PO SCH (08:13)
[2019-08-11] MEDS ORDERED: LASIX IVP ONE ×2 (08:22→10:44)
[2019-08-11] MEDS ORDERED: LASIX IVP SCH (09:00)
[2019-08-11] MEDS: PROTONIX TAB 40 MG PO SCH ×2 (09:20→20:12)
--- NOTE | 2019-08-11 13:22 | PCM.PROG ---
Progress Note - Progress Note for Day of Date of Exam: 08/10/19 - Subjective Subjective: PT IS 84 [address] ADMITT[address] FROM [address] BOYER OFFICE ON 08/09 WITH BRONCHOPNEUMONIA. PT IS CURRENLTY ON IV ATBX THERAPY, RESP THERAPY AND SUPPLEMENTAL O2. PT CONTINUES WITH CO SOB AND DIFFUSE EXPIRATORY WHEEZES. PT HAD BLOOD AND SPUTUM CULTURES ORDERED ON ADMISSION. PT CXR WITH CHF AND LEFT LUNG PNEUMONIA. WILL CONTINUE PNEUMONIA PROTOCOL, IV ATBX, RESP THERAPY, IV LASIX. STRICT I & OS. - Past Medical Family Social History Past Med/Fam/Surg Hx: No changes since H&P Allergies: Allergies No Known Drug Allergies Allergy (Verified 04/18/18 18:28) - Review of Systems ROS: No change since H&P - Vital Signs and I&O's Vital Signs: Temperature 98.5 F Pulse Rate [Left Brachial] 98 Pulse Rate [Right Brachial] 97 Pulse Rate 96 Respiratory Rate 20 Blood Pressure [Right Arm] 119/57 Blood Pressure [Left Arm] 99/54 Blood Pressure 103/58 O2 Sat by Pulse Oximetry 96 Intake and Output: Intake & Output 08/09/19 08/10/19 08/11/19 08/12/19 11:59 11:59 11:59 11:59 Intake Total 1532 / 1532 2232 / 2232 Balance 1532 / 1532 2232 / 2232 - Physical Exam Oriented: Normal Eyes: Blurred Vision (LEFT EYE, CHRONIC) Ear: Normal Nose: Normal Throat: Dry Respiratory: Diminished, Wheezes Cardiovascular: Normal. negative: Edema : Normal Auscultation: Bowel Sounds: Normal Tenderness: Normal Skin: Decreased Turgur Musculoskeletal: Right, Left, Knee, Back:Lumbar Psychiatric: Anxiety Affect: Anxious Speech Pattern: Clear, Appropriate - Laboratory and Diagnostics Result Diagrams: 08/11/19 04:10 08/11/19 04:10 Labs: 08/09/19 15:58 Blood Blood Culture - Preliminary 08/09/19 15:42 Blood Blood Culture - Preliminary 08/10/19 10:36 Sputum - Expectorated Sputum Sputum Culture - Preliminary 08/10/19 10:36 Sputum - Expectorated Sputum - Final Laboratory WBC 13.3 X10^3/uL (3.6-10.0) H 08/11/19 04:10 RBC 3.03 X10^6/uL (3.5-5.4) L 08/11/19 04:10 Hgb 9.4 g/dL (12.0-16.0) L 08/11/19 04:10 Hct 28.0 % (36.0-47.0) L 08/11/19 04:10 MCV 92.6 fL (80.0-100.0) 08/11/19 04:10 MCH 31.0 pg (27.0-34.0) 08/11/19 04:10 MCHC 33.5 g/dL (33.0-35.0) 08/11/19 04:10 RDW 16.3 % (11.6-16.5) 08/11/19 04:10 Plt Count 216 X10^3/uL (150.0-450.0) 08/11/19 04:10 Plt Count Comment Adequate (ADEQUATE) 08/11/19 04:10 MPV 7.9 fL (7.4-11.0) 08/11/19 04:10 Neut % (Auto) 90.6 % (42.0-75.0) H 08/11/19 04:10 Lymph % (Auto) 5.5 % (21.0-51.0) L 08/11/19 04:10 [place] % (Auto) 3.8 % (0.0-13.0) 08/11/19 04:10 Eos % (Auto) 0.0 % (0.9-2.9) L 08/11/19 04:10 Baso % (Auto) 0.1 % (0.2-1.0) L 08/11/19 04:10 Neut # (Auto) 12.1 x10^3/uL (2.2-4.8) H 08/11/19 04:10 Lymph # (Auto) 0.7 X10^3/uL (1.3-2.9) L 08/11/19 04:10 [place] # (Auto) 0.5 x10^3/uL (0.3-0.8) 08/11/19 04:10 Eos # (Auto) 0.0 x10^3/uL (0.0-0.2) 08/11/19 04:10 Baso # (Auto) 0.0 X10^3/uL (0.0-0.1) 08/11/19 04:10 Absolute Nucleated RBC 0.0 /100WBC 08/11/19 04:10 Total Counted 100 08/11/19 04:10 Neutrophils % (Manual) 92 % (39-76) H 08/11/19 04:10 Band Neutrophils % 1 % (0-10) 08/11/19 04:10 Lymphocytes % (Manual) 5 % (13-43) L 08/11/19 04:10 Monocytes % (Manual) 2 % (4-9) L 08/11/19 04:10 Plt Morphology Comment Normal (NORMAL) 08/11/19 04:10 RBC Morphology Normal (NORMAL) 08/11/19 04:10 Sample Site Rb 08/09/19 15:53 ABG pH 7.400 (7.35-7.45) 08/09/19 15:53 ABG pCO2 37.0 mmHg (35.0-45.0) 08/09/19 15:53 ABG pO2 84.0 mmHg (80.0-100.0) 08/09/19 15:53 ABG HCO3 22.9 mmol/L (22-26) 08/09/19 15:53 ABG O2 Saturation 96.0 % (90-100) 08/09/19 15:53 ABG Base Excess -1.6 mmol/L (-2.0-2.0) 08/09/19 15:53 Roman Test Na 08/09/19 15:53 A-a Gradient 19.0 mmHg 08/09/19 15:53 FiO2 21.0 08/09/19 15:53 Blood Gas Comments Natalie well cb 08/09/19 15:53 Sodium 143 mmol/L (136-145) 08/11/19 04:10 Corrected Sodium 144 mmol/L (136-145) 08/11/19 04:10 Potassium 3.5 mmol/L (3.5-5.1) 08/11/19 04:10 Chloride 111 mmol/L (98-107) H 08/11/19 04:10 Carbon Dioxide 20.4 mmol/L (21-32) L 08/11/19 04:10 BUN 13 mg/dL (7-18) 08/11/19 04:10 Creatinine 1.12 mg/dL (0.55-1.02) H 08/11/19 04:10 Est GFR (MDRD) Af Amer 59 (>60) 08/11/19 04:10 Est GFR (MDRD) Non-Af 49 (>60) L 08/11/19 04:10 Glucose 127 mg/dL (65-99) H 08/11/19 04:10 Calcium 7.8 mg/dL (8.5-10.1) L 08/11/19 04:10 Corrected Calcium 8.8 mg/dL (8.5-10.1) 08/11/19 04:10 Magnesium 1.7 mg/dL (1.7-2.9) 08/11/19 04:10 Total Bilirubin 0.20 mg/dL (0.2-1.0) 08/11/19 04:10 AST 9 Units/L (15-37) L 08/11/19 04:10 ALT 13 Units/L (12-78) 08/11/19 04:10 Alkaline Phosphatase 77 Units/L (46-116) 08/11/19 04:10 Total Protein 6.3 g/dL (6.4-8.2) L 08/11/19 04:10 Albumin 2.8 g/dL (3.4-5.0) L 08/11/19 04:10 Globulin 3.5 g/dL (2.5-4.5) 08/11/19 04:10 Albumin/Globulin Ratio 0.8 Ratio (1.1-2.1) L 08/11/19 04:10 - Plan (1) Bronchopneumonia Status: Acute Plan: PNEUMONIA PROTOCOL. IV ATBX, RESP THERAPY, SUPPLEMENTAL O2. SPUTUM AND BLOOD CULTURES ON ADMISSION. ABG, REPEAT AM CXR. HOME MEDICATIONS, CARDIAC MONITORING (2) COPD with exacerbation Status: Acute (3) Congestive heart failure Status: Acute Qualifiers: Heart failure type: unspecified Heart failure chronicity: acute Qualified Code(s): I50.9 - Heart failure, unspecified (4) Arthritis Status: Chronic (5) CAD (coronary artery disease) Status: Chronic (6) SHILPI (generalized anxiety disorder) Status: Chronic (7) Glaucoma Status: Chronic (8) Hx of CABG Status: Chronic
--- NOTE | 2019-08-11 13:52 | PCM.PROG ---
Progress Note - Progress Note for Day of Date of Exam: 08/11/19 - Subjective Subjective: PT IS 84 [address] ADMITTED FROM [address] BOYER OFFICE ON 08/09 WITH BRONCHOPNEUMONIA. PT IS CURRENLTY ON IV ATBX THERAPY, RESP THERAPY AND SUPPLEMENTAL O2. PT CONTINUES WITH DIFFUSE EXPIRATORY WHEEZES. WBC 13.3 THIS AM. PT HAS BEEN AFEBRILE. PT REPORTS SHE IS FEELING A LITTLE BETTER TODAY. PT EATING BREAKFAST ON EXAM. PT HAD BLOOD AND SPUTUM CULTURES ORDERED ON ADMISSION. PT CXR WITH CHF AND LEFT LUNG PNEUMONIA. WILL CONTINUE PNEUMONIA PROTOCOL, IV ATBX, RESP THERAPY, IV LASIX. STRICT I & OS. - Past Medical Family Social History Past Med/Fam/Surg Hx: No changes since H&P Allergies: Allergies No Known Drug Allergies Allergy (Verified 04/18/18 18:28) - Review of Systems ROS: No change since H&P - Vital Signs and I&O's Vital Signs: Temperature 98.5 F Pulse Rate [Left Brachial] 98 Pulse Rate [Right Brachial] 97 Pulse Rate 96 Respiratory Rate 20 Blood Pressure [Right Arm] 119/57 Blood Pressure [Left Arm] 99/54 Blood Pressure 103/58 O2 Sat by Pulse Oximetry 96 Intake and Output: Intake & Output 08/09/19 08/10/19 08/11/19 08/12/19 11:59 11:59 11:59 11:59 Intake Total 1532 / 1532 2232 / 2232 Balance 1532 / 1532 2232 / 2232 - Physical Exam Oriented: Normal Eyes: Blurred Vision (LEFT EYE, CHRONIC) Ear: Normal Nose: Normal Throat: Dry Respiratory: Diminished, Wheezes Cardiovascular: Normal. negative: Edema : Normal Auscultation: Bowel Sounds: Normal Tenderness: Normal Skin: Decreased Turgur Musculoskeletal: Right, Left, Knee, Back:Lumbar Psychiatric: Anxiety Affect: Anxious Speech Pattern: Clear, Appropriate - Laboratory and Diagnostics Result Diagrams: 08/11/19 04:10 08/11/19 04:10 Labs: 08/09/19 15:58 Blood Blood Culture - Preliminary 08/09/19 15:42 Blood Blood Culture - Preliminary 08/10/19 10:36 Sputum - Expectorated Sputum Sputum Culture - Preliminary 08/10/19 10:36 Sputum - Expectorated Sputum - Final Laboratory WBC 13.3 X10^3/uL (3.6-10.0) H 08/11/19 04:10 RBC 3.03 X10^6/uL (3.5-5.4) L 08/11/19 04:10 Hgb 9.4 g/dL (12.0-16.0) L 08/11/19 04:10 Hct 28.0 % (36.0-47.0) L 08/11/19 04:10 MCV 92.6 fL (80.0-100.0) 08/11/19 04:10 MCH 31.0 pg (27.0-34.0) 08/11/19 04:10 MCHC 33.5 g/dL (33.0-35.0) 08/11/19 04:10 RDW 16.3 % (11.6-16.5) 08/11/19 04:10 Plt Count 216 X10^3/uL (150.0-450.0) 08/11/19 04:10 Plt Count Comment Adequate (ADEQUATE) 08/11/19 04:10 MPV 7.9 fL (7.4-11.0) 08/11/19 04:10 Neut % (Auto) 90.6 % (42.0-75.0) H 08/11/19 04:10 Lymph % (Auto) 5.5 % (21.0-51.0) L 08/11/19 04:10 [place] % (Auto) 3.8 % (0.0-13.0) 08/11/19 04:10 Eos % (Auto) 0.0 % (0.9-2.9) L 08/11/19 04:10 Baso % (Auto) 0.1 % (0.2-1.0) L 08/11/19 04:10 Neut # (Auto) 12.1 x10^3/uL (2.2-4.8) H 08/11/19 04:10 Lymph # (Auto) 0.7 X10^3/uL (1.3-2.9) L 08/11/19 04:10 [place] # (Auto) 0.5 x10^3/uL (0.3-0.8) 08/11/19 04:10 Eos # (Auto) 0.0 x10^3/uL (0.0-0.2) 08/11/19 04:10 Baso # (Auto) 0.0 X10^3/uL (0.0-0.1) 08/11/19 04:10 Absolute Nucleated RBC 0.0 /100WBC 08/11/19 04:10 Total Counted 100 08/11/19 04:10 Neutrophils % (Manual) 92 % (39-76) H 08/11/19 04:10 Band Neutrophils % 1 % (0-10) 08/11/19 04:10 Lymphocytes % (Manual) 5 % (13-43) L 08/11/19 04:10 Monocytes % (Manual) 2 % (4-9) L 08/11/19 04:10 Plt Morphology Comment Normal (NORMAL) 08/11/19 04:10 RBC Morphology Normal (NORMAL) 08/11/19 04:10 Sample Site Rb 08/09/19 15:53 ABG pH 7.400 (7.35-7.45) 08/09/19 15:53 ABG pCO2 37.0 mmHg (35.0-45.0) 08/09/19 15:53 ABG pO2 84.0 mmHg (80.0-100.0) 08/09/19 15:53 ABG HCO3 22.9 mmol/L (22-26) 08/09/19 15:53 ABG O2 Saturation 96.0 % (90-100) 08/09/19 15:53 ABG Base Excess -1.6 mmol/L (-2.0-2.0) 08/09/19 15:53 Roman Test Na 08/09/19 15:53 A-a Gradient 19.0 mmHg 08/09/19 15:53 FiO2 21.0 08/09/19 15:53 Blood Gas Comments Natalie well cb 08/09/19 15:53 Sodium 143 mmol/L (136-145) 08/11/19 04:10 Corrected Sodium 144 mmol/L (136-145) 08/11/19 04:10 Potassium 3.5 mmol/L (3.5-5.1) 08/11/19 04:10 Chloride 111 mmol/L (98-107) H 08/11/19 04:10 Carbon Dioxide 20.4 mmol/L (21-32) L 08/11/19 04:10 BUN 13 mg/dL (7-18) 08/11/19 04:10 Creatinine 1.12 mg/dL (0.55-1.02) H 08/11/19 04:10 Est GFR (MDRD) Af Amer 59 (>60) 08/11/19 04:10 Est GFR (MDRD) Non-Af 49 (>60) L 08/11/19 04:10 Glucose 127 mg/dL (65-99) H 08/11/19 04:10 Calcium 7.8 mg/dL (8.5-10.1) L 08/11/19 04:10 Corrected Calcium 8.8 mg/dL (8.5-10.1) 08/11/19 04:10 Magnesium 1.7 mg/dL (1.7-2.9) 08/11/19 04:10 Total Bilirubin 0.20 mg/dL (0.2-1.0) 08/11/19 04:10 AST 9 Units/L (15-37) L 08/11/19 04:10 ALT 13 Units/L (12-78) 08/11/19 04:10 Alkaline Phosphatase 77 Units/L (46-116) 08/11/19 04:10 Total Protein 6.3 g/dL (6.4-8.2) L 08/11/19 04:10 Albumin 2.8 g/dL (3.4-5.0) L 08/11/19 04:10 Globulin 3.5 g/dL (2.5-4.5) 08/11/19 04:10 Albumin/Globulin Ratio 0.8 Ratio (1.1-2.1) L 08/11/19 04:10 - Plan (1) Bronchopneumonia Status: Acute Plan: PNEUMONIA PROTOCOL. IV ATBX, RESP THERAPY, SUPPLEMENTAL O2. SPUTUM AND BLOOD CULTURES ON ADMISSION. ABG, REPEAT AM CXR. HOME MEDICATIONS, CARDIAC M ONITORING (2) COPD with exacerbation Status: Acute (3) Congestive heart failure Status: Acute Qualifiers: Heart failure type: unspecified Heart failure chronicity: acute Qualified Code(s): I50.9 - Heart failure, unspecified (4) Arthritis Status: Chronic (5) CAD (coronary artery disease) Status: Chronic (6) SHILPI (generalized anxiety disorder) Status: Chronic (7) Glaucoma Status: Chronic (8) Hx of CABG Status: Chronic
[2019-08-11] MEDS ORDERED: MILK OF MAGNESIA PO PRN (19:39)
[2019-08-11] MEDS: COLACE CAP 100 MG PO SCH (20:12)
[2019-08-11] MEDS: TYLENOL 325 MG TAB PO PRN (20:12)
[2019-08-12] MEDS: NS 1000 ML 1,000 ML IV SCH ×3 (00:13→20:54)
[2019-08-12] MEDS: PROVENTIL NEB TX 0.083% 2.5MG/ 3ML NEB SCH ×6 (00:54→21:06)
[2019-08-12 05:15] LABS: BASOPHILS % (AUTO) 0.2 % (0.2-1.0); EOSINOPHILS % (AUTO) 0.1 % (0.9-2.9); HEMATOCRIT 29.7 % (36.0-47.0); HEMOGLOBIN 10.1 g/dL (12.0-16.0); LYMPHOCYTES # (AUTO) 2.3 X10^3/uL (1.3-2.9); LYMPHOCYTES % (AUTO) 22.8 % (21.0-51.0); MEAN CORPUSCULAR HEMOGLOBIN 31.7 pg (27.0-34.0); MEAN CORPUSCULAR VOLUME 93.2 fL (80.0-100.0); MEAN PLATELET VOLUME 8.3 fL (7.4-11.0); MONOCYTES # (AUTO) 1.1 x10^3/uL (0.3-0.8); MONOCYTES % (AUTO) 10.8 % (0.0-13.0); NEUTROPHILS # (AUTO) 6.6 x10^3/uL (2.2-4.8); NEUTROPHILS % (AUTO) 66.1 % (42.0-75.0); PLATELET COUNT 224 X10^3/uL (150.0-450.0); RED BLOOD COUNT 3.19 X10^6/uL (3.5-5.4); RED CELL DISTRIBUTION WIDTH 16.4 % (11.6-16.5)
[2019-08-12 05:26] LABS: ALANINE AMINOTRANSFERASE 24 Units/L (12-78); ALBUMIN 2.7 g/dL (3.4-5.0); ALKALINE PHOSPHATASE 81 Units/L (46-116); ASPARTATE AMINO TRANSFERASE 18 Units/L (15-37); BLOOD UREA NITROGEN 13 mg/dL (7-18); CALCIUM 8.1 mg/dL (8.5-10.1); CARBON DIOXIDE 26.1 mmol/L (21-32); CHLORIDE 107 mmol/L (98-107); COR CA(FOR HYPOALB) 9.1 mg/dL (8.5-10.1); CREATININE 1.13 mg/dL (0.55-1.02); MAGNESIUM 2.4 mg/dL (1.7-2.9); SODIUM 141 mmol/L (136-145); TOTAL PROTEIN 6.4 g/dL (6.4-8.2); eGFR NON BLACK RACES 49 (>60)
[2019-08-12] MEDS: LEVAQUIN PREMIX IV 250 MG 250 MG/50 ML BAG IV SCH (08:34)
[2019-08-12] MEDS: LOVENOX INJ 30 MG SYR SC SCH (08:35)
[2019-08-12] MEDS: PROTONIX TAB 40 MG PO SCH ×2 (08:35→20:45)
[2019-08-12] MEDS: LASIX PO SCH (08:35)
[2019-08-12] MEDS: TOPROL XL PO SCH (08:36)
[2019-08-12] MEDS: MICRO K EXTEN CAP 10 MEQ PO SCH (08:36)
[2019-08-12] MEDS: ROBITUSSIN DM PO SCH ×4 (08:36→20:45)
[2019-08-12] MEDS ORDERED: FLOMAX PO SCH (09:00)
[2019-08-12] MEDS: MIRALAX POWDER (1 DOSE 17 G) PO SCH (10:18)
[2019-08-12] MEDS: LASIX IVP SCH ×2 (10:18→20:45)
[2019-08-12] MEDS: SOLU-Medrol 40 MG VIAL IVP SCH ×3 (10:23→21:05)
--- NOTE | 2019-08-12 11:59 | RAD ---
HISTORYCOPD, AB, CHFSTUDYCHEST, PA/LAT ADULTCOMPARISONX-ray 08/11/2019 and 08/09/2019FINDINGSPrior cardiac surgery. Mild cardiomegaly is improved from prior study. Persistent abnormal increased interstitial densities in the lungs. Improving atelectasis in the lingula. No pneumothorax or pleural effusion is seen.Lateral view suggests mild focal density in the posterior aspect of the chest that may be in the retrocardiac region in the left lower lung. This is seen on 08/09/[address] exam on 04/18/2018. It is probable atelectasis.IMPRESSIONImproving cardiomegalyPersistent increased interstitial densities in the lungs could be pulmonary edema but may be chronic interstitial lung disease. Appearance may be associated with COPD.Likely persistent atelectasis in the left lower lobe.Electronically signed by: John Aguilar (Aug 12, 2019 11:58:27)
[2019-08-12] MEDS: COLACE CAP 100 MG PO SCH (20:45)
[2019-08-12] MEDS ORDERED: MIRALAX POWDER (1 DOSE 17 G) PO SCH (21:00)
[2019-08-13] MEDS: PROVENTIL NEB TX 0.083% 2.5MG/ 3ML NEB SCH ×4 (00:15→12:17)
[2019-08-13] MEDS: NS 1000 ML 1,000 ML IV SCH (03:35)
[2019-08-13] MEDS: TYLENOL 325 MG TAB PO PRN ×2 (04:53→11:18)
[2019-08-13] MEDS: SOLU-Medrol 40 MG VIAL IVP SCH ×2 (05:13→13:48)
[2019-08-13 05:23] LABS: BASOPHILS % (AUTO) 0.1 % (0.2-1.0); HEMATOCRIT 32.6 % (36.0-47.0); HEMOGLOBIN 10.9 g/dL (12.0-16.0); LYMPHOCYTES # (AUTO) 0.7 X10^3/uL (1.3-2.9); LYMPHOCYTES % (AUTO) 8.1 % (21.0-51.0); MEAN CORPUSCULAR HEMOGLOBIN 31.4 pg (27.0-34.0); MEAN CORPUSCULAR HGB CONC 33.5 g/dL (33.0-35.0); MEAN CORPUSCULAR VOLUME 93.5 fL (80.0-100.0); MEAN PLATELET VOLUME 8.3 fL (7.4-11.0); MONOCYTES # (AUTO) 0.1 x10^3/uL (0.3-0.8); MONOCYTES % (AUTO) 1.5 % (0.0-13.0); NEUTROPHILS # (AUTO) 7.6 x10^3/uL (2.2-4.8); NEUTROPHILS % (AUTO) 90.3 % (42.0-75.0); PLATELET COUNT 268 X10^3/uL (150.0-450.0); RED BLOOD COUNT 3.49 X10^6/uL (3.5-5.4); RED CELL DISTRIBUTION WIDTH 16.6 % (11.6-16.5); WHITE BLOOD COUNT 8.4 X10^3/uL (3.6-10.0)
[2019-08-13 05:33] LABS: CALCIUM 8.6 mg/dL (8.5-10.1); CARBON DIOXIDE 28.4 mmol/L (21-32); COR CA(FOR HYPOALB) 9.4 mg/dL (8.5-10.1); CREATININE 1.32 mg/dL (0.55-1.02); TOTAL PROTEIN 7.1 g/dL (6.4-8.2)
[2019-08-13 05:59] LABS: PLATELET MORPHOLOGY COMMENT NORMAL (NORMAL)
[2019-08-13] MEDS: MICRO K EXTEN CAP 10 MEQ PO SCH (09:39)
[2019-08-13] MEDS: TOPROL XL PO SCH (09:39)
[2019-08-13] MEDS: PROTONIX TAB 40 MG PO SCH (09:39)
[2019-08-13] MEDS: LASIX PO SCH (09:39)
[2019-08-13] MEDS: MIRALAX POWDER (1 DOSE 17 G) PO SCH (09:40)
[2019-08-13] MEDS: LASIX IVP SCH (09:40)
[2019-08-13] MEDS: ROBITUSSIN DM PO SCH ×2 (09:40→13:48)
[2019-08-13] MEDS: LOVENOX INJ 30 MG SYR SC SCH (09:40)
[2019-08-13] MEDS: LEVAQUIN PREMIX IV 250 MG 250 MG/50 ML BAG IV SCH (09:41)
[2019-08-13 14:45] VITALS: BP 134/63
== END 2019-08-13 16:15 | disposition home or self-care (01) ==
LOC: MED/SURG
PROVIDERS: ADMIT Internal Medicine; ATTEND Internal Medicine
CPT/HCPCS: 36415; 36600; 71010; 71020; 71045; 71046; 80053; 82803; 83735; 85025; 87040; 87070; 87205; 94640; 94669; 94760; 96360; 96361; 96372; 96374; 97162; A4222; G0378; J1650; J1940; J1956; J2920; J3475; J3490; J7030; J7613

== ENCOUNTER 2020-01-22 16:15 | Inpatient (IN) ==
[2020-01-22] MEDS ORDERED: NS 500 ML IV 500 ML IV ONE (16:34)
[2020-01-22] MEDS ORDERED: MORPHINE SULFATE INJ 2 MG INJ IVP ONE ×2 (16:36→23:25)
[2020-01-22] MEDS ORDERED: ZOFRAN INJ 4 MG VIAL IVP ONE (16:36)
[2020-01-22] MEDS ORDERED: MORPHINE SULFATE INJ 2 MG INJ ONE (16:38)
[2020-01-22] MEDS ORDERED: ZOFRAN INJ 4 MG VIAL ONE (16:38)
[2020-01-22 16:50] LABS: BASOPHILS # (AUTO) 0.1 X10^3/uL (0.0-0.1); BASOPHILS % (AUTO) 1.3 % (0.2-1.0); EOSINOPHILS # (AUTO) 0.1 x10^3/uL (0.0-0.2); EOSINOPHILS % (AUTO) 1.5 % (0.9-2.9); HEMATOCRIT 34.4 % (36.0-47.0); HEMOGLOBIN 11.3 g/dL (12.0-16.0); LYMPHOCYTES # (AUTO) 1.8 X10^3/uL (1.3-2.9); LYMPHOCYTES % (AUTO) 27.5 % (21.0-51.0); MEAN CORPUSCULAR HGB CONC 32.7 g/dL (33.0-35.0); MEAN CORPUSCULAR VOLUME 91.5 fL (80.0-100.0); MEAN PLATELET VOLUME 7.5 fL (7.4-11.0); MONOCYTES # (AUTO) 0.7 x10^3/uL (0.3-0.8); MONOCYTES % (AUTO) 11.4 % (0.0-13.0); NEUTROPHILS # (AUTO) 3.7 x10^3/uL (2.2-4.8); NEUTROPHILS % (AUTO) 58.3 % (42.0-75.0); PLATELET COUNT 195 X10^3/uL (150.0-450.0); RED BLOOD COUNT 3.76 X10^6/uL (3.5-5.4); WHITE BLOOD COUNT 6.4 X10^3/uL (3.6-10.0)
[2020-01-22] MEDS ORDERED: NS 1000 ML 1,000 ML ONE (17:03)
[2020-01-22 17:11] LABS: BLOOD UREA NITROGEN 18 mg/dL (7-18); CALCIUM 9.2 mg/dL (8.5-10.1); CARBON DIOXIDE 32.9 mmol/L (21-32); CHLORIDE 101 mmol/L (98-107); SODIUM 138 mmol/L (136-145); TROPONIN I < 0.02 ng/mL (0-1.5); eGFR NON BLACK RACES 50 (>60)
[2020-01-22 17:12] LABS: ALANINE AMINOTRANSFERASE 20 Units/L (12-78); ALBUMIN 3.6 g/dL (3.4-5.0); ALKALINE PHOSPHATASE 127 Units/L (46-116); ASPARTATE AMINO TRANSFERASE 23 Units/L (15-37); CKMB % 1.6 % (<4); CREATINE KINASE 64 Units/L (26-192); CREATINE KINASE MB < 1.0 ng/mL (0-4.0); MAGNESIUM 1.9 mg/dL (1.7-2.9); TOTAL PROTEIN 8.2 g/dL (6.4-8.2)
--- NOTE | 2020-01-22 17:39 | CT ---
HISTORYFall, head injurySTUDYCT head without contrastTechnique: Axial noncontrast images with coronal and sagittal reformats. Dose reduction procedures were used with mA/kv adjusted for body size.[id number]/2018FINDINGSThe ventricles, cortical sulci, and other CSF spaces are enlarged consistent with generalized atrophy. There is decreased attenuation in the periventricular white matter suggestive of small vessel vascular disease. There are no focal areas of abnormal attenuation to suggest recent or remote CVA, hemorrhage, contusion, mass lesion, or extra-axial fluid collection. The visualized sinuses are clear. The calvarium is intact.IMPRESSIONNo significant acute intracranial abnormality identifiedGeneralized atrophy likely age relatedSmall-vessel diseaseElectronically signed by: CHAN BOGGS (Jan 22, 2020 17:37:43)
--- NOTE | 2020-01-22 17:53 | RAD ---
HISTORYFellSTUDYAP [id number] cardiomegaly with aortic arteriosclerosis. Sternal wires are present. There is a chronic interstitial thickening/fibrosis as before. There is a large soft tis flavia mass density in the right superior mediastinum do seem minimal deviation of the trachea to the le ft.IMPRESSIONStable cardiomegaly, postsurgical changes, chronic interstitial peribronchial thickening . Slight increase in prominence of right superior mediastinal density. This is more than usually seen with brachiocephalic vessel dilatation. Thyroid mass or other right sided neck mass formation may pr oduce this finding. Asymmetric enlargement of the right thyroid was documented on CT exam of April,. Correlate clinically for enlarging thyroid mass. Other etiology should be excluded.Electronica lly signed by: KLEVER JOHANSEN (Jan 22, 2020 17:51:48)
[2020-01-22] MEDS ORDERED: TORADOL 30 MG VIAL IVP ONE (18:54)
[2020-01-22] MEDS ORDERED: TORADOL 30 MG VIAL ONE (18:58)
--- NOTE | 2020-01-22 18:58 | RAD ---
Exam:HIP, LEFTIndication: Trauma, fallComparison: [None available]Findings: Moderately displaced left intertrochanteric femoral fracture. There is mild coxa valgus deformity. Femoral head remains well positioned within the acetabular fossa. The right femoroacetabular joint demonstrates degenerative change without malalignment. Extensive calcified atherosclerotic disease of the iliac and femoral arteries bilaterally. Generalized osteopenia.IMPRESSIONModerately displaced left intertrochanteric femoral neck fracture.Electronically signed by: MAGDALENA VALERA (Jan 22, 2020 18:57:08)
[2020-01-22 20:04] LABS: BILIRUBIN,URINE NEGATIVE (NEGATIVE); BLOOD/HEMOGLOBIN,URINE NEGATIVE (NEGATIVE); GLUCOSE, URINE NEGATIVE (NEGATIVE); KETONES,URINE NEGATIVE (NEGATIVE); LEUKOCYTE ESTERASE ,URINE NEGATIVE (NEGATIVE); NITRITES,URINE NEGATIVE (NEGATIVE); PH,URINE 6.5 (5.0 - 8.0); PROTEIN,URINE NEGATIVE (NEGATIVE); UROBILINOGEN,URINE NORMAL (NORMAL)
[2020-01-22 20:09] LABS: APPEARANCE,URINE CLEAR (CLEAR); COLOR,URINE STRAW (YELLOW)
--- NOTE | 2020-01-22 20:21 | DR.EXTPAIN ---
HPI Time seen Time Seen by Provider: 01/22/20 16:34 PCP Primary Care Physician: ave jaramillo site surveyor HPI Comment HPI Comment: Acute severe left hip pain. Patient was moving from one chair to the other, and missed and hit the ground in a sitting position. Denies syncope, chest pain or palpitations, fevers, chills, SHOB or cough, or any other symptoms. Complaint/Symptoms Chief Complaint:: PT STATES " I WAS MOVING FROM ONE CHAIR ON MY PORCH AND I HIT THE CEMENT " PT C/O LEFT HIP PAIN PT FAVORING HER HIP, PT PEDAL PULSES POSITIVE BILATERALLY AND NO SHORTENING OR ROTATION NOTED ,BR PT STATES " I HURT IN MY NECK AND BACK AND I NEED MEDICINE FOR PAIN "..BR COVID-19 Coronavirus risk:travel/contact w/high risk person: No Has patient experienced Coronavirus symptoms: No Nurses notes reviewed Nurses Notes Review: Yes Source History Provided: Patient Mode of arrival Mode of Arrival: Wheelchair Timing Onset of Chief Complaint: 01/22/20 Context History of: None Associated signs and symptoms Associated Signs and Symptoms: None PMH PMH Past Medical History: Yes Past Medical History: Anxiety, Arthritis, COPD, Coronary Artery Disease, GERD and Hypertension Past Surgical History: Yes Surgical History: Angioplasty/Stents, CABG/Valve Surgery, Cholecystectomy, Hysterectomy, Ortho Surgery and Other Family History History of Family Medical Conditions: No Family Medical History: Cancer Social History Does patient currently use any type of tobacco product: No Have you used tobacco products in the last 12 months: No Type of Tobacco Use: None Does any household member use tobacco: No Alcohol Use: None Do you use any recreational Drugs:: No Lives With: Family Lives Where: Home Travel Risk Coronavirus risk:travel/contact w/high risk person: No Has patient experienced Coronavirus symptoms: No Infectious screening In the last 2 months have you had wt loss of >10#?: NO Have you had fever, night sweats or hemotysis?: No Have you traveled outside the country in the last 6 months?: No Isolation: Standard ROS Review of Systems Constitutional: No Symptoms Reported Eyes: No Symptoms Reported ENTM: No Symptoms Reported Respiratoy: No Symptoms Reported Cardiovascular: No Symptoms Reported Gastrointestinal/Abdominal: No Symptoms Reported Genitourinary: No Symptoms Reported Neurological: No Symptoms Reported Musculoskeletal: See HPI Integumentary: No Symptoms Reported Hematologic/Lymphatic: No Symptoms Reported Endocrine: No Symptoms Reported Psychiatric: No Symptoms Reported All Other Systems: Reviewed and Negative PE Vital Signs Vitals: Temperature 98.4 F Pulse Rate [Left] 81 Pulse Rate 92 Respiratory Rate 18 Blood Pressure [Right Arm] 114/59 Blood Pressure [Left Arm] 145/73 Blood Pressure 156/86 O2 Sat by Pulse Oximetry 93 General Limitations: No Limitations General Appearance: Alert and In No Apparent Distress Head Head Exam: Normal Inspection Eyes Eye exam: Normal Appearance ENT ENT Exam: Normal Exam Neck Neck Exam: Normal Inspection Chest Chest Inspection: Normal Inspection and Symmetric Chest Wall Rise Respiratory Respiratory Exam: Normal Lung Sounds Bilat; negative Accessory Muscle Use and Respiratory Distress Cardiovascular Cardiovascular Exam: Regular Rate and Normal Rhythm Abdominal Exam Abdominal Exam: Normal Inspection, Normal Bowel Sounds and Soft Extremities Extremities Exam: Normal Inspection, Tenderness (Left hip and thigh), Normal Capillary Refill and Other (pulses LLE 2+, cap refill < 2sec); negative Full ROM and Edema Back Back Exam: Normal Inspection Neurological Neurological Exam: Alert, Oriented X3 and CN II-XII Intact Psychiatric Psychiatric Exam: Normal Affect and Normal Mood Skin Skin Exam: Warm, Dry, Intact and Normal Color COURSE Treatment Treatment: Pain partially relieved with analgesia. Left hip fracture, no other acute abnormalities, EKG / trops normal. Dr. Bui plans to operate in AM the day after tomorrow, patient admitted by Dr. Celeste of medicine. Reevaluation 1st: Improved ROR Labs Reviewed Result Diagrams: 01/22/20 16:43 01/22/20 16:43 Laboratory: WBC 6.4 X10^3/uL (3.6-10.0) 01/22/20 16:43 RBC 3.76 X10^6/uL (3.5-5.4) 01/22/20 16:43 Hgb 11.3 g/dL (12.0-16.0) L 01/22/20 16:43 Hct 34.4 % (36.0-47.0) L 01/22/20 16:43 MCV 91.5 fL (80.0-100.0) 01/22/20 16:43 MCH 30.0 pg (27.0-34.0) 01/22/20 16:43 MCHC 32.7 g/dL (33.0-35.0) L 01/22/20 16:43 RDW 15.0 % (11.6-16.5) 01/22/20 16:43 Plt Count 195 X10^3/uL (150.0-450.0) 01/22/20 16:43 MPV 7.5 fL (7.4-11.0) 01/22/20 16:43 Neut % (Auto) 58.3 % (42.0-75.0) 01/22/20 16:43 Lymph % (Auto) 27.5 % (21.0-51.0) 01/22/20 16:43 [place] % (Auto) 11.4 % (0.0-13.0) 01/22/20 16:43 Eos % (Auto) 1.5 % (0.9-2.9) 01/22/20 16:43 Baso % (Auto) 1.3 % (0.2-1.0) H 01/22/20 16:43 Neut # (Auto) 3.7 x10^3/uL (2.2-4.8) 01/22/20 16:43 Lymph # (Auto) 1.8 X10^3/uL (1.3-2.9) 01/22/20 16:43 [place] # (Auto) 0.7 x10^3/uL (0.3-0.8) 01/22/20 16:43 Eos # (Auto) 0.1 x10^3/uL (0.0-0.2) 01/22/20 16:43 Baso # (Auto) 0.1 X10^3/uL (0.0-0.1) 01/22/20 16:43 Absolute Nucleated RBC 0.0 /100WBC 01/22/20 16:43 Sodium 138 mmol/L (136-145) 01/22/20 16:43 Corrected Sodium TNP 01/22/20 16:43 Potassium 3.8 mmol/L (3.5-5.1) 01/22/20 16:43 Chloride 101 mmol/L (98-107) 01/22/20 16:43 Carbon Dioxide 32.9 mmol/L (21-32) H 01/22/20 16:43 BUN 18 mg/dL (7-18) 01/22/20 16:43 Creatinine 1.10 mg/dL (0.55-1.02) H 01/22/20 16:43 Est GFR (MDRD) Af Amer > 60 (>60) 01/22/20 16:43 Est GFR (MDRD) Non-Af 50 (>60) L 01/22/20 16:43 Glucose 99 mg/dL (65-99) 01/22/20 16:43 Calcium 9.2 mg/dL (8.5-10.1) 01/22/20 16:43 Corrected Calcium TNP 01/22/20 16:43 Magnesium 1.9 mg/dL (1.7-2.9) 01/22/20 16:43 Total Bilirubin 0.20 mg/dL (0.2-1.0) 01/22/20 16:43 AST 23 Units/L (15-37) 01/22/20 16:43 ALT 20 Units/L (12-78) 01/22/20 16:43 Alkaline Phosphatase 127 Units/L (46-116) H 01/22/20 16:43 Creatine Kinase 64 Units/L (26-192) 01/22/20 16:43 CK-MB (CK-2) < 1.0 ng/mL (0-4.0) 01/22/20 16:43 CK/CKMB % Calc 1.6 % (<4) 01/22/20 16:43 Troponin I < 0.02 ng/mL (0-1.5) 01/22/20 16:43 Total Protein 8.2 g/dL (6.4-8.2) 01/22/20 16:43 Albumin 3.6 g/dL (3.4-5.0) 01/22/20 16:43 Globulin 4.6 g/dL (2.5-4.5) H 01/22/20 16:43 Albumin/Globulin Ratio 0.8 Ratio (1.1-2.1) L 01/22/20 16:43 Specimen Type Catherized urine 01/22/20 19:46 Urine Color Straw (YELLOW) 01/22/20 19:46 Urine Appearance Clear (CLEAR) 01/22/20 19:46 Urine pH 6.5 (5.0 - 8.0) 01/22/20 19:46 Ur Specific [place] 1.015 (1.000-1.030) 01/22/20 19:46 Urine Protein Negative (NEGATIVE) 01/22/20 19:46 Urine Glucose (UA) Negative (NEGATIVE) 01/22/20 19:46 Urine Ketones Negative (NEGATIVE) 01/22/20 19:46 Urine Occult Blood Negative (NEGATIVE) 01/22/20 19:46 Urine Nitrite Negative (NEGATIVE) 01/22/20 19:46 Urine Bilirubin Negative (NEGATIVE) 01/22/20 19:46 Urine Urobilinogen Normal (NORMAL) 01/22/20 19:46 Ur Leukocyte Esterase Negative (NEGATIVE) 01/22/20 19:46 EKG [place]: Normal Rhythm: NSR Block: None Hypertrophy: None ST: Normal Opioid Opioid Risk Tool Age (Jose Manuel box if 16-45): No History of Preadolescent Sexual Abuse: No Total: 0 Total Score Risk Category: Low Risk Copyright: Agustín GREENE predicting aberrant behaviors Diagnosis Discharge Problem: Closed fracture of left hip Qualifiers: Encounter type: initial encounter Qualified Code(s): S72.002A - Fracture of unspecified part of neck of left femur, initial encounter for closed fracture
[2020-01-22 23:49] VITALS: BMI 21.2
[2020-01-23] MEDS: NORCO 5/325 MG TAB PO PRN ×3 (00:38→17:00)
[2020-01-23] MEDS: NS 1000 ML 1,000 ML IV SCH ×5 (00:55→22:46)
[2020-01-23 07:06] LABS: BASOPHILS % (AUTO) 0.4 % (0.2-1.0); EOSINOPHILS % (AUTO) 0.7 % (0.9-2.9); HEMATOCRIT 33.6 % (36.0-47.0); LYMPHOCYTES # (AUTO) 0.9 X10^3/uL (1.3-2.9); LYMPHOCYTES % (AUTO) 17.2 % (21.0-51.0); MEAN CORPUSCULAR HEMOGLOBIN 30.2 pg (27.0-34.0); MEAN CORPUSCULAR HGB CONC 32.6 g/dL (33.0-35.0); MEAN CORPUSCULAR VOLUME 92.4 fL (80.0-100.0); MEAN PLATELET VOLUME 8.7 fL (7.4-11.0); MONOCYTES # (AUTO) 0.1 x10^3/uL (0.3-0.8); MONOCYTES % (AUTO) 1.6 % (0.0-13.0); NEUTROPHILS # (AUTO) 4.2 x10^3/uL (2.2-4.8); NEUTROPHILS % (AUTO) 80.1 % (42.0-75.0); PLATELET COUNT 177 X10^3/uL (150.0-450.0); RED BLOOD COUNT 3.63 X10^6/uL (3.5-5.4); RED CELL DISTRIBUTION WIDTH 15.5 % (11.6-16.5); WHITE BLOOD COUNT 5.2 X10^3/uL (3.6-10.0)
[2020-01-23 07:07] LABS: ALANINE AMINOTRANSFERASE 66 Units/L (12-78); ALBUMIN 3.5 g/dL (3.4-5.0); ALKALINE PHOSPHATASE 140 Units/L (46-116); ASPARTATE AMINO TRANSFERASE 113 Units/L (15-37); BLOOD UREA NITROGEN 20 mg/dL (7-18); CALCIUM 8.8 mg/dL (8.5-10.1); CARBON DIOXIDE 29.6 mmol/L (21-32); CHLORIDE 100 mmol/L (98-107); CREATININE 1.12 mg/dL (0.55-1.02); SODIUM 138 mmol/L (136-145); TOTAL PROTEIN 7.7 g/dL (6.4-8.2); eGFR NON BLACK RACES 49 (>60)
[2020-01-23] MEDS: HEPARIN SODIUM INJ 5000 UNITS SC SCH ×3 (08:51→15:07)
--- NOTE | 2020-01-23 10:45 | DR.H&P ---
H&P History & Physical for Day of: H&P Date: 01/23/20 Chief Complaint Chief Complaint: Fall Allergies Allergies Allergy/AdvReac Type Severity Reaction Status Date / Time No Known Drug Allergies Allergy Verified 04/18/18 18:28 History of Present Illness History of Present Illness: Pt is a 84 yo f pmhx HTN admitted after falling off chair on her porch and had severe left hip pain. She reports her pain as being persistent, sharp, aching, without relief. Labs/imaging: Wbc 5.2, Hgb 11, Plt 177, Na 138, K 3.8, Cr 1.12, UA negatve, COVID negative, CXR stable cardio megaly, Head CT:generalized atrophy age related, small vessel disease. Left Hip XR:moderately displaced Left intertrochanteric femoral neck fracture. EKG NSR. Pt was found to have left femoral neck fracture. ED physician contacted ortho-Dr Bui that plans to operate Friday or Friday. Will continue pain management and resume home medications. Continue to monitor and follow up labs in the morning. Past Medical History Past Medical History: Anxiety, Arthritis, COPD, Coronary Artery Disease, GERD and Hypertension Past Surgical History Surgical History: Angioplasty/Stents, CABG/Valve Surgery, Cholecystectomy and Hysterectomy Family History Family Medical History: Diabetes Mellitus, Coronary Artery Disease and Hypertension Social History Does patient currently use any type of tobacco product: No Have you used tobacco products in the last 12 months: No Type of Tobacco Use: None Does any household member use tobacco: No Alcohol Use: None Drug Use: Prescription Drugs Medications Home Medications: No Known Drug Allergies Allergy (Verified 04/18/18 18:28) CONTINUE taking the following medications alprazolam 0.5 mg PO DAILY PRN 01/22/20 [History] brimonidine 1 drp OPHTHALMIC (EYE) TID 01/22/20 [History] cephalexin 500 mg PO BID 01/22/20 [History] dorzolamide-timolol 1 drp OPHTHALMIC (EYE) BID 01/22/20 [History] furosemide 20 mg PO DAILY 01/22/20 [History] hydrocodone-acetaminophen 1 tab PO DAILY 01/22/20 [History] metoprolol succinate 25 mg PO DAILY 01/22/20 [History] Labs Result Diagrams: 01/23/20 05:02 01/23/20 05:02 Labs: Laboratory WBC 5.2 X10^3/uL (3.6-10.0) 01/23/20 05:02 RBC 3.63 X10^6/uL (3.5-5.4) 01/23/20 05:02 Hgb 11.0 g/dL (12.0-16.0) L 01/23/20 05:02 Hct 33.6 % (36.0-47.0) L 01/23/20 05:02 MCV 92.4 fL (80.0-100.0) 01/23/20 05:02 MCH 30.2 pg (27.0-34.0) 01/23/20 05:02 MCHC 32.6 g/dL (33.0-35.0) L 01/23/20 05:02 RDW 15.5 % (11.6-16.5) 01/23/20 05:02 Plt Count 177 X10^3/uL (150.0-450.0) 01/23/20 05:02 MPV 8.7 fL (7.4-11.0) 01/23/20 05:02 Neut % (Auto) 80.1 % (42.0-75.0) H 01/23/20 05:02 Lymph % (Auto) 17.2 % (21.0-51.0) L 01/23/20 05:02 [place] % (Auto) 1.6 % (0.0-13.0) 01/23/20 05:02 Eos % (Auto) 0.7 % (0.9-2.9) L 01/23/20 05:02 Baso % (Auto) 0.4 % (0.2-1.0) 01/23/20 05:02 Neut # (Auto) 4.2 x10^3/uL (2.2-4.8) 01/23/20 05:02 Lymph # (Auto) 0.9 X10^3/uL (1.3-2.9) L 01/23/20 05:02 [place] # (Auto) 0.1 x10^3/uL (0.3-0.8) L 01/23/20 05:02 Eos # (Auto) 0.0 x10^3/uL (0.0-0.2) 01/23/20 05:02 Baso # (Auto) 0.0 X10^3/uL (0.0-0.1) 01/23/20 05:02 Absolute Nucleated RBC 0.1 /100WBC 01/23/20 05:02 Sodium 138 mmol/L (136-145) 01/23/20 05:02 Corrected Sodium TNP 01/23/20 05:02 Potassium 3.8 mmol/L (3.5-5.1) 01/23/20 05:02 Chloride 100 mmol/L (98-107) 01/23/20 05:02 Carbon Dioxide 29.6 mmol/L (21-32) 01/23/20 05:02 BUN 20 mg/dL (7-18) H 01/23/20 05:02 Creatinine 1.12 mg/dL (0.55-1.02) H 01/23/20 05:02 Est GFR (MDRD) Af Amer 59 (>60) 01/23/20 05:02 Est GFR (MDRD) Non-Af 49 (>60) L 01/23/20 05:02 Glucose 89 mg/dL (65-99) 01/23/20 05:02 Calcium 8.8 mg/dL (8.5-10.1) 01/23/20 05:02 Corrected Calcium TNP 01/23/20 05:02 Magnesium 1.9 mg/dL (1.7-2.9) 01/22/20 16:43 Total Bilirubin 0.60 mg/dL (0.2-1.0) 01/23/20 05:02 AST 113 Units/L (15-37) H 01/23/20 05:02 ALT 66 Units/L (12-78) 01/23/20 05:02 Alkaline Phosphatase 140 Units/L (46-116) H 01/23/20 05:02 Creatine Kinase 64 Units/L (26-192) 01/22/20 16:43 CK-MB (CK-2) < 1.0 ng/mL (0-4.0) 01/22/20 16:43 CK/CKMB % Calc 1.6 % (<4) 01/22/20 16:43 Troponin I < 0.02 ng/mL (0-1.5) 01/22/20 16:43 Total Protein 7.7 g/dL (6.4-8.2) 01/23/20 05:02 Albumin 3.5 g/dL (3.4-5.0) 01/23/20 05:02 Globulin 4.2 g/dL (2.5-4.5) 01/23/20 05:02 Albumin/Globulin Ratio 0.8 Ratio (1.1-2.1) L 01/23/20 05:02 Specimen Type Catherized urine 01/22/20 19:46 Urine Color Straw (YELLOW) 01/22/20 19:46 Urine Appearance Clear (CLEAR) 01/22/20 19:46 Urine pH 6.5 (5.0 - 8.0) 01/22/20 19:46 Ur Specific [place] 1.015 (1.000-1.030) 01/22/20 19:46 Urine Protein Negative (NEGATIVE) 01/22/20 19:46 Urine Glucose (UA) Negative (NEGATIVE) 01/22/20 19:46 Urine Ketones Negative (NEGATIVE) 01/22/20 19:46 Urine Occult Blood Negative (NEGATIVE) 01/22/20 19:46 Urine Nitrite Negative (NEGATIVE) 01/22/20 19:46 Urine Bilirubin Negative (NEGATIVE) 01/22/20 19:46 Urine Urobilinogen Normal (NORMAL) 01/22/20 19:46 Ur Leukocyte Esterase Negative (NEGATIVE) 01/22/20 19:46 SARS-CoV-2 (PCR) Negative (NEGATIVE) 01/22/20 20:00 Review of Systems Constitutional: No Symptoms Reported Eyes: No Symptoms Reported ENT: No Symptoms Reported Respiratory: No Symptoms Reported Cardiovascular: No Symptoms Reported Gastrointestinal: No Symptoms Reported Genitourinary: No Symptoms Reported Musculoskeletal: Leg Pain (left hip) Skin: No Symptoms Reported Neurological: No Symptoms Reported Physical Exam Vital Signs: Temperature 99.7 F Pulse Rate [Left] 112 Pulse Rate 92 Respiratory Rate 18 Blood Pressure [Right Arm] 114/59 Blood Pressure [Left Arm] 114/56 Blood Pressure 156/86 O2 Sat by Pulse Oximetry 96 Oriented: Normal Eyes: Normal Ear: Normal Nose: Normal Throat: Normal Respiratory: Clear Throughout Cardiovascular: Normal : Normal Auscultation: Bowel Sounds: Normal Palpation: Normal Tenderness: Normal Skin: Normal Musculoskeletal: Hip (moderate to severe pain proximal left ) Psychiatric: Normal Mood Description: Calm Speech Pattern: Clear Assessment/Plan (1) Fracture of femoral neck, left: Status: Acute Plan: Pain control Ortho consulted-Dr Bui Review H&P Reviewed: Yes Patient was examined?: Yes
[2020-01-23] MEDS ORDERED: XANAX PO PRN (10:55)
[2020-01-23] MEDS: TOPROL XL PO SCH (11:19)
[2020-01-23] MEDS: ALPHAGAN 0.2% OPHTH SOLN OP SCH ×2 (14:43→21:09)
[2020-01-23] MEDS: COSOPT OPTH OP SCH (20:30)
[2020-01-23] MEDS: TORADOL 15 MG VIAL IVP PRN (21:09)
[2020-01-24] MEDS: NS 1000 ML 1,000 ML IV SCH ×2 (03:25→16:24)
[2020-01-24] MEDS: TORADOL 15 MG VIAL IVP PRN ×2 (03:27→18:57)
[2020-01-24 04:21] LABS: BASOPHILS % (AUTO) 0.2 % (0.2-1.0); EOSINOPHILS # (AUTO) 0.1 x10^3/uL (0.0-0.2); EOSINOPHILS % (AUTO) 0.6 % (0.9-2.9); HEMATOCRIT 27.9 % (36.0-47.0); HEMOGLOBIN 9.2 g/dL (12.0-16.0); LYMPHOCYTES # (AUTO) 1.1 X10^3/uL (1.3-2.9); LYMPHOCYTES % (AUTO) 14.4 % (21.0-51.0); MEAN CORPUSCULAR HEMOGLOBIN 30.6 pg (27.0-34.0); MEAN CORPUSCULAR HGB CONC 33.1 g/dL (33.0-35.0); MEAN CORPUSCULAR VOLUME 92.4 fL (80.0-100.0); MEAN PLATELET VOLUME 7.9 fL (7.4-11.0); MONOCYTES # (AUTO) 0.9 x10^3/uL (0.3-0.8); NEUTROPHILS # (AUTO) 5.8 x10^3/uL (2.2-4.8); NEUTROPHILS % (AUTO) 73.8 % (42.0-75.0); PLATELET COUNT 137 X10^3/uL (150.0-450.0); RED BLOOD COUNT 3.01 X10^6/uL (3.5-5.4); WHITE BLOOD COUNT 7.9 X10^3/uL (3.6-10.0)
[2020-01-24 04:29] LABS: ALANINE AMINOTRANSFERASE 36 Units/L (12-78); ALBUMIN 2.5 g/dL (3.4-5.0); ALKALINE PHOSPHATASE 98 Units/L (46-116); ASPARTATE AMINO TRANSFERASE 36 Units/L (15-37); BLOOD UREA NITROGEN 19 mg/dL (7-18); CALCIUM 8.4 mg/dL (8.5-10.1); CARBON DIOXIDE 28.3 mmol/L (21-32); CHLORIDE 104 mmol/L (98-107); COR CA(FOR HYPOALB) 9.6 mg/dL (8.5-10.1); CREATININE 1.08 mg/dL (0.55-1.02); SODIUM 137 mmol/L (136-145); TOTAL PROTEIN 6.1 g/dL (6.4-8.2); eGFR NON BLACK RACES 51 (>60)
[2020-01-24] MEDS ORDERED: POTASSIUM CHL 40 MEQ/NS 0.45% 500 ML IV PRN (05:14)
[2020-01-24] MEDS ORDERED: KLOR-CON PO PRN (05:14)
[2020-01-24] MEDS ORDERED: POTASSIUM CHL 60 MEQ/NS 0.45% 500 ML IV PRN (05:14)
[2020-01-24] MEDS ORDERED: POTASSIUM CHLORIDE LIQ 20 MEQ UDC PO PRN (05:14)
[2020-01-24] MEDS ORDERED: MICRO K EXTEN CAP 10 MEQ PO PRN (05:14)
[2020-01-24] MEDS ORDERED: K-RIDER 10 MEQ/NS 100 ML 10 MEQ/100 ML BAG IV PRN (05:14)
[2020-01-24] MEDS: ALPHAGAN 0.2% OPHTH SOLN OP SCH ×3 (05:26→21:33)
[2020-01-24] MEDS: TOPROL XL PO SCH (06:10)
[2020-01-24] MEDS: NORCO 5/325 MG TAB PO PRN ×2 (06:10→17:21)
[2020-01-24] MEDS ORDERED: BETADINE SOLN ONE (06:52)
[2020-01-24] MEDS ORDERED: LR 1000 ML IV 1,000 ML IV ONE (07:02)
[2020-01-24] MEDS ORDERED: ANCEF 1 GRAM IV PREMIX* 1 G/50 ML BAG IV ONE (07:03)
[2020-01-24] MEDS ORDERED: FENTANYL INJ 100 mcg ONE ×2 (07:04→08:20)
[2020-01-24] MEDS ORDERED: DILAUDID INJ ONE (07:04)
[2020-01-24] MEDS ORDERED: AMIDATE INJ 40 MG VIAL ONE ×2 (07:05→15:16)
[2020-01-24] MEDS ORDERED: REGLAN INJ 10 MG VIAL IVP PRN (09:25)
[2020-01-24] MEDS ORDERED: ZOFRAN INJ 4 MG VIAL IVP PRN (09:25)
[2020-01-24] MEDS ORDERED: PHENERGAN INJ 25 MG IM PRN (09:25)
[2020-01-24] MEDS ORDERED: BENADRYL INJ 50 MG VIAL IVP PRN (09:25)
[2020-01-24] MEDS ORDERED: DILAUDID INJ IVP PRN (09:25)
[2020-01-24] MEDS: COSOPT OPTH OP SCH ×2 (09:41→21:33)
[2020-01-24] MEDS: LASIX PO SCH (09:41)
--- NOTE | 2020-01-24 10:16 | RAD ---
HISTORYStatus post left hip hemiarthroplastySTUDYLeft hip two viewsCOMPARISONNoneFINDINGSThe bones are osteopenic. The pelvic bones appear intact. The patient is status post left hip hemiarthroplasty in good position. Surgical evelyn and postsurgical soft tissue air identified.IMPRESSIONStatus post left hip hemiarthroplasty in good positionElectronically signed by: CHAN BOGGS (Jan 24, 2020 10:14:37)
[2020-01-24] MEDS: MORPHINE SULFATE INJ 2 MG INJ IVP PRN ×2 (12:32→15:31)
[2020-01-24] MEDS ORDERED: SUPRANE ONE (15:16)
[2020-01-24] MEDS ORDERED: DIPRIVAN VIAL ONE (15:16)
[2020-01-24] MEDS ORDERED: ZOFRAN INJ 4 MG VIAL ONE (15:16)
[2020-01-24] MEDS ORDERED: ROBINUL ONE (15:16)
[2020-01-24] MEDS ORDERED: NORCURON INJ 10 MG VIAL ONE (15:16)
[2020-01-24] MEDS ORDERED: VERSED ONE (15:16)
[2020-01-24] MEDS ORDERED: NEOSTIGMINE INJ ONE (15:16)
[2020-01-24] MEDS ORDERED: EPHEDRINE SULFATE INJ ONE (15:16)
[2020-01-24] MEDS ORDERED: LTA KIT LIDOCAINE 4% ONE (15:16)
[2020-01-24] MEDS ORDERED: ZOSYN VIAL 4.5 GRAMS IV ONE (20:46)
[2020-01-24] MEDS ORDERED: NS 100 ML IV + SPIKE MINIBAG* 100 ML IV ONE (20:47)
[2020-01-24] MEDS ORDERED: ZOSYN VIAL 4.5 GRAMS 4.5 G in NS 100 ML IV + SPIKE MINIBAG* 100 ML IV SCH (21:00)
[2020-01-25] MEDS: MAGNESIUM SULFATE 1 GRAM/100 mL PREMIX 1 GM/100 ML BAG IV PRN ×2 (01:24→02:35)
[2020-01-25] MEDS: MORPHINE SULFATE INJ 2 MG INJ IVP PRN (02:33)
[2020-01-25] MEDS: TORADOL 15 MG VIAL IVP PRN ×2 (04:36→14:50)
[2020-01-25] MEDS: NS 1000 ML 1,000 ML IV SCH ×2 (04:43→11:50)
[2020-01-25] MEDS: ALPHAGAN 0.2% OPHTH SOLN OP SCH ×3 (05:59→21:00)
[2020-01-25] MEDS: ZOSYN VIAL 3.375 GRAMS 3.375 G in NS 100 ML IV + SPIKE MINIBAG* 100 ML IV SCH ×3 (05:59→22:48)
--- NOTE | 2020-01-25 06:14 | RAD ---
HISTORYfeverSTUDYCHEST, 1 [id number]/11/2020FINDINGSThe trachea is midline. The cardiac silhouette is mildly enlarged.. Chronic appearing interstitial markings throughout the lungs. Scarring or fibrosis left lung base. Mediastinal clips sternotomy wires and prosthetic valve noted.. The bony thorax is unremarkable.IMPRESSIONChronic appearing interstitial markings throughout the lungs with scarring or fibrosis left lung base.No significant change from previous 01/22/2020Electronically signed by: Salvador Martinez (Jan 25, 2020 06:12:35)
--- NOTE | 2020-01-25 06:15 | RAD ---
HISTORYFeverSTUDYChest AP [id number]/13/2020FINDINGSPatient is status post median sternotomy and valve replacement. T he heart remains enlarged. The vanesa are normal. The aorta is calcified. No congestive heart failure i s noted. The lungs are generally hyperinflated with the exception of areas of subsegmental atelectasi s in the lung bases. Chronic appearing interstitial lung changes are stable. No alveolar infiltrates or pleural effusions are identified. Bony thorax is unremarkable.IMPRESSIONCardiomegaly without conge stive heart failureHyperinflation but without acute infiltratesStable interstitial lung changesElectr onically signed by: CHAN BOGGS (Jan 25, 2020 06:14:36)
[2020-01-25 06:24] LABS: BASOPHILS % (AUTO) 0.3 % (0.2-1.0); HEMATOCRIT 22.8 % (36.0-47.0); HEMOGLOBIN 7.7 g/dL (12.0-16.0); LYMPHOCYTES # (AUTO) 0.9 X10^3/uL (1.3-2.9); LYMPHOCYTES % (AUTO) 10.3 % (21.0-51.0); MEAN CORPUSCULAR HEMOGLOBIN 30.8 pg (27.0-34.0); MEAN CORPUSCULAR HGB CONC 33.8 g/dL (33.0-35.0); MEAN CORPUSCULAR VOLUME 91.1 fL (80.0-100.0); MONOCYTES # (AUTO) 1.1 x10^3/uL (0.3-0.8); MONOCYTES % (AUTO) 12.4 % (0.0-13.0); NEUTROPHILS # (AUTO) 6.6 x10^3/uL (2.2-4.8); PLATELET COUNT 121 X10^3/uL (150.0-450.0); RED BLOOD COUNT 2.51 X10^6/uL (3.5-5.4); RED CELL DISTRIBUTION WIDTH 14.8 % (11.6-16.5); WHITE BLOOD COUNT 8.5 X10^3/uL (3.6-10.0)
[2020-01-25 06:44] LABS: ALANINE AMINOTRANSFERASE 30 Units/L (12-78); ALBUMIN 2.2 g/dL (3.4-5.0); ALKALINE PHOSPHATASE 98 Units/L (46-116); ASPARTATE AMINO TRANSFERASE 36 Units/L (15-37); BLOOD UREA NITROGEN 15 mg/dL (7-18); CALCIUM 8.1 mg/dL (8.5-10.1); CARBON DIOXIDE 23.9 mmol/L (21-32); CHLORIDE 105 mmol/L (98-107); COR CA(FOR HYPOALB) 9.5 mg/dL (8.5-10.1); COR NA(FOR HYPERGLY) 135 mmol/L (136-145); CREATININE 0.94 mg/dL (0.55-1.02); SODIUM 135 mmol/L (136-145); TOTAL PROTEIN 5.7 g/dL (6.4-8.2); eGFR NON BLACK RACES > 60 (>60)
[2020-01-25 06:52] LABS: HYPOCHROMASIA SLIGHT; PLATELET MORPHOLOGY COMMENT NORMAL (NORMAL)
[2020-01-25] MEDS ORDERED: LOVENOX INJ 40 MG SYR SC SCH (09:00)
[2020-01-25] MEDS: COSOPT OPTH OP SCH ×2 (09:12→21:00)
[2020-01-25] MEDS: LASIX PO SCH (09:13)
[2020-01-25] MEDS: TOPROL XL PO SCH (09:13)
[2020-01-25] MEDS: NORCO 5/325 MG TAB PO PRN ×2 (09:25→22:48)
[2020-01-25] MEDS ORDERED: LASIX IVP ONE (10:56)
--- NOTE | 2020-01-25 13:40 | PCM.PROG ---
Progress Note - Progress Note for Day of Date of Exam: 01/25/20 - Subjective Subjective: The patient is an 84yo BF who was admitted due to left hip fracture. She underwent surgical repari onb 01/24/[address] Elias Bui. Patient deveoped temp last night. Is having congested cough with clear copious mucus. Patient states pain is controlled. Discussed Rehab vs Home for discharge. Patient unclear at this time. Denies any other complaints. - Past Medical Family Social History Past Med/Fam/Surg Hx: No changes since H&P Allergies: Allergies No Known Drug Allergies Allergy (Verified 04/18/18 18:28) - Review of Systems ROS: No change since H&P - Vital Signs and I&O's Vital Signs: Temperature 99.0 F Pulse Rate [Left] 87 Pulse Rate 65 Respiratory Rate 20 Blood Pressure [Right Arm] 114/56 Blood Pressure [Left Arm] 111/57 Blood Pressure 138/73 O2 Sat by Pulse Oximetry 91 Intake and Output: Intake & Output 01/22/20 01/23/20 01/24/20 01/25/20 23:59 23:59 23:59 23:59 Intake Total 250 / 250 3008 / 3008 4127 / 4127 825 / 825 Output Total 150 / 150 1150 / 1150 1824 / 1824 100 / 100 Balance 100 / 100 1858 / 1858 2303 / 2303 725 / 725 - Physical Exam Oriented: Normal Eyes: Normal Ear: Normal Nose: Normal Throat: Normal Respiratory: Right, Left, Rhonchi Cardiovascular: Normal : Normal Auscultation: Bowel Sounds: Normal Tenderness: Normal Skin: Normal, Wound (Left hip surgical wound dressing intact. ) Musculoskeletal: Hip (moderate to severe pain proximal left) Psychiatric: Normal Mood Description: Calm Speech Pattern: Clear, Appropriate - Laboratory and Diagnostics Result Diagrams: 01/25/20 05:35 01/25/20 05:35 Labs: Laboratory WBC 8.5 X10^3/uL (3.6-10.0) 01/25/20 05:35 RBC 2.51 X10^6/uL (3.5-5.4) L 01/25/20 05:35 Hgb 7.7 g/dL (12.0-16.0) L 01/25/20 05:35 Hct 22.8 % (36.0-47.0) L 01/25/20 05:35 MCV 91.1 fL (80.0-100.0) 01/25/20 05:35 MCH 30.8 pg (27.0-34.0) 01/25/20 05:35 MCHC 33.8 g/dL (33.0-35.0) 01/25/20 05:35 RDW 14.8 % (11.6-16.5) 01/25/20 05:35 Plt Count 121 X10^3/uL (150.0-450.0) L 01/25/20 05:35 Plt Count Comment Adequate (ADEQUATE) 01/25/20 05:35 MPV 8.0 fL (7.4-11.0) 01/25/20 05:35 Neut % (Auto) 77.0 % (42.0-75.0) H 01/25/20 05:35 Lymph % (Auto) 10.3 % (21.0-51.0) L 01/25/20 05:35 [place] % (Auto) 12.4 % (0.0-13.0) 01/25/20 05:35 Eos % (Auto) 0.0 % (0.9-2.9) L 01/25/20 05:35 Baso % (Auto) 0.3 % (0.2-1.0) 01/25/20 05:35 Neut # (Auto) 6.6 x10^3/uL (2.2-4.8) H 01/25/20 05:35 Lymph # (Auto) 0.9 X10^3/uL (1.3-2.9) L 01/25/20 05:35 [place] # (Auto) 1.1 x10^3/uL (0.3-0.8) H 01/25/20 05:35 Eos # (Auto) 0.0 x10^3/uL (0.0-0.2) 01/25/20 05:35 Baso # (Auto) 0.0 X10^3/uL (0.0-0.1) 01/25/20 05:35 Absolute Nucleated RBC 0.0 /100WBC 01/25/20 05:35 Plt Morphology Comment Normal (NORMAL) 01/25/20 05:35 RBC Morphology Abnormal (NORMAL) A 01/25/20 05:35 Hypochromasia Slight A 01/25/20 05:35 APTT 54.6 SECONDS (22.9-36.5) H 01/24/20 04:05 PTT Comment - 01/24/20 04:05 Sodium 135 mmol/L (136-145) L 01/25/20 05:35 Corrected Sodium 135 mmol/L (136-145) L 01/25/20 05:35 Potassium 3.8 mmol/L (3.5-5.1) 01/25/20 05:35 Chloride 105 mmol/L (98-107) 01/25/20 05:35 Carbon Dioxide 23.9 mmol/L (21-32) 01/25/20 05:35 BUN 15 mg/dL (7-18) 01/25/20 05:35 Creatinine 0.94 mg/dL (0.55-1.02) 01/25/20 05:35 Est GFR (MDRD) Af Amer > 60 (>60) 01/25/20 05:35 Est GFR (MDRD) Non-Af > 60 (>60) 01/25/20 05:35 Glucose 112 mg/dL (65-99) H 01/25/20 05:35 Calcium 8.1 mg/dL (8.5-10.1) L 01/25/20 05:35 Corrected Calcium 9.5 mg/dL (8.5-10.1) 01/25/20 05:35 Magnesium 2.2 mg/dL (1.7-2.9) 01/25/20 05:35 Total Bilirubin 0.80 mg/dL (0.2-1.0) 01/25/20 05:35 AST 36 Units/L (15-37) 01/25/20 05:35 ALT 30 Units/L (12-78) 01/25/20 05:35 Alkaline Phosphatase 98 Units/L (46-116) 01/25/20 05:35 Creatine Kinase 64 Units/L (26-192) 01/22/20 16:43 CK-MB (CK-2) < 1.0 ng/mL (0-4.0) 01/22/20 16:43 CK/CKMB % Calc 1.6 % (<4) 01/22/20 16:43 Troponin I < 0.02 ng/mL (0-1.5) 01/22/20 16:43 Total Protein 5.7 g/dL (6.4-8.2) L 01/25/20 05:35 Albumin 2.2 g/dL (3.4-5.0) L 01/25/20 05:35 Globulin 3.5 g/dL (2.5-4.5) 01/25/20 05:35 Albumin/Globulin Ratio 0.6 Ratio (1.1-2.1) L 01/25/20 05:35 Specimen Type Catherized urine 01/22/20 19:46 Urine Color Straw (YELLOW) 01/22/20 19:46 Urine Appearance Clear (CLEAR) 01/22/20 19:46 Urine pH 6.5 (5.0 - 8.0) 01/22/20 19:46 Ur Specific [place] 1.015 (1.000-1.030) 01/22/20 19:46 Urine Protein Negative (NEGATIVE) 01/22/20 19:46 Urine Glucose (UA) Negative (NEGATIVE) 01/22/20 19:46 Urine Ketones Negative (NEGATIVE) 01/22/20 19:46 Urine Occult Blood Negative (NEGATIVE) 01/22/20 19:46 Urine Nitrite Negative (NEGATIVE) 01/22/20 19:46 Urine Bilirubin Negative (NEGATIVE) 01/22/20 19:46 Urine Urobilinogen Normal (NORMAL) 01/22/20 19:46 Ur Leukocyte Esterase Negative (NEGATIVE) 01/22/20 19:46 SARS-CoV-2 (PCR) Negative (NEGATIVE) 01/22/20 20:00 Tissue Pathology To follow 01/24/20 09:05 - Plan (1) Fever Status: Acute Plan: CXR, Monitor Labs, Continue Antibiotics (2) Closed fracture of left hip Status: Acute Qualifiers: Encounter type: initial encounter Qualified Code(s): S72.002A - Fracture of unspecified part of neck of left femur, initial encounter for closed fracture Plan: S/P surgical repair (3) COPD (chronic obstructive pulmonary disease) Status: Chronic (4) Congestive heart failure Status: Chronic Qualifiers: Heart failure type: unspecified Heart failure chronicity: acute Qualified Code(s): I50.9 - Heart failure, unspecified (5) Hypertension Status: Chronic
[2020-01-25] MEDS: DUONEB 0.5 MG/3 MG (3 mL) NEB SCH ×3 (15:05→20:48)
[2020-01-26] MEDS: DUONEB 0.5 MG/3 MG (3 mL) NEB SCH ×6 (00:56→20:07)
[2020-01-26] MEDS: NS 1000 ML 1,000 ML IV SCH ×3 (02:16→16:50)
[2020-01-26] MEDS: TORADOL 15 MG VIAL IVP PRN (03:21)
[2020-01-26] MEDS ORDERED: COLACE CAP 100 MG PO ONE (05:31)
[2020-01-26] MEDS: ALPHAGAN 0.2% OPHTH SOLN OP SCH ×3 (05:45→21:26)
[2020-01-26] MEDS: ZOSYN VIAL 3.375 GRAMS 3.375 G in NS 100 ML IV + SPIKE MINIBAG* 100 ML IV SCH ×3 (05:45→21:26)
[2020-01-26] MEDS ORDERED: COLACE CAP 100 MG PO PRN (06:00)
[2020-01-26] MEDS ORDERED: MILK OF MAGNESIA PO PRN (06:00)
[2020-01-26 06:02] LABS: BASOPHILS % (AUTO) 0.3 % (0.2-1.0); EOSINOPHILS % (AUTO) 0.2 % (0.9-2.9); HEMATOCRIT 20.1 % (36.0-47.0); LYMPHOCYTES # (AUTO) 0.8 X10^3/uL (1.3-2.9); MEAN CORPUSCULAR HEMOGLOBIN 30.7 pg (27.0-34.0); MEAN CORPUSCULAR HGB CONC 33.8 g/dL (33.0-35.0); MEAN CORPUSCULAR VOLUME 90.8 fL (80.0-100.0); MEAN PLATELET VOLUME 8.2 fL (7.4-11.0); MONOCYTES # (AUTO) 1.2 x10^3/uL (0.3-0.8); MONOCYTES % (AUTO) 14.6 % (0.0-13.0); NEUTROPHILS # (AUTO) 6.3 x10^3/uL (2.2-4.8); NEUTROPHILS % (AUTO) 74.9 % (42.0-75.0); PLATELET COUNT 120 X10^3/uL (150.0-450.0); RED BLOOD COUNT 2.22 X10^6/uL (3.5-5.4); RED CELL DISTRIBUTION WIDTH 14.8 % (11.6-16.5); WHITE BLOOD COUNT 8.4 X10^3/uL (3.6-10.0)
[2020-01-26 06:13] LABS: ALANINE AMINOTRANSFERASE 19 Units/L (12-78); ALKALINE PHOSPHATASE 82 Units/L (46-116); ASPARTATE AMINO TRANSFERASE 23 Units/L (15-37); BLOOD UREA NITROGEN 14 mg/dL (7-18); CALCIUM 8.1 mg/dL (8.5-10.1); CARBON DIOXIDE 24.6 mmol/L (21-32); CHLORIDE 103 mmol/L (98-107); COR CA(FOR HYPOALB) 9.7 mg/dL (8.5-10.1); CREATININE 1.05 mg/dL (0.55-1.02); SODIUM 134 mmol/L (136-145); TOTAL PROTEIN 5.5 g/dL (6.4-8.2); eGFR NON BLACK RACES 53 (>60)
--- NOTE | 2020-01-26 06:20 | RAD ---
HISTORYPulmonary congestionSTUDYChest AP [id number]/14/2020, CTA chest 04/18/2018FINDINGSPatient is status post median sternotomy and valve replacement. The heart remains enlarged. No congestive heart failure is noted. The aorta is calcified. Interstitial lung changes are present and unchanged in degree or distribution from the prior examination. There is a focus of subsegmental atelectasis in the left costophrenic angle. No alveolar infiltrates or pleural effusions are identified. Right paratracheal fullness contributing to leftward tracheal deviation is due to the patient's enlarged right thyroid lobe previously described 04/18/2018 CTA chest.IMPRESSIONContinued cardiomegaly without congestive heart failureContinued interstitial lung changes not significantly different in degree or distribution from the prior examinationRight paratracheal fullness is due to the patient's enlarged right thyroid lobe 1st described on the CTA chest 04/18/2018Electronically signed by: CHAN BOGGS (Jan 26, 2020 06:19:06)
[2020-01-26 06:38] LABS: HEMOGLOBIN 6.8 g/dL (12.0-16.0)
[2020-01-26] MEDS ORDERED: LASIX IVP ONE (08:52)
[2020-01-26] MEDS: TOPROL XL PO SCH (08:54)
[2020-01-26] MEDS: COSOPT OPTH OP SCH ×2 (08:55→21:25)
[2020-01-26] MEDS: LASIX PO SCH (08:55)
[2020-01-26] MEDS: NORCO 5/325 MG TAB PO PRN ×2 (08:56→14:08)
[2020-01-26] MEDS: K-DUR TAB 20 MEQ PO PRN (10:28)
[2020-01-26] MEDS: MUCINEX EXPECTORANT PO SCH ×2 (10:28→21:25)
[2020-01-26] MEDS ORDERED: NS 500 ML IV 500 ML IV ONE (11:31)
[2020-01-26] MEDS ORDERED: LASIX ONE (14:50)
[2020-01-26 19:16] LABS: HEMATOCRIT 30.2 % (36.0-47.0); HEMOGLOBIN 10.1 g/dL (12.0-16.0)
[2020-01-27] MEDS: DUONEB 0.5 MG/3 MG (3 mL) NEB SCH ×3 (00:15→09:30)
[2020-01-27] MEDS: NORCO 5/325 MG TAB PO PRN ×3 (00:18→13:50)
[2020-01-27 06:13] LABS: BASOPHILS % (AUTO) 0.3 % (0.2-1.0); EOSINOPHILS % (AUTO) 0.5 % (0.9-2.9); HEMATOCRIT 29.1 % (36.0-47.0); HEMOGLOBIN 9.9 g/dL (12.0-16.0); LYMPHOCYTES # (AUTO) 1.3 X10^3/uL (1.3-2.9); LYMPHOCYTES % (AUTO) 12.2 % (21.0-51.0); MEAN CORPUSCULAR HEMOGLOBIN 31.2 pg (27.0-34.0); MEAN CORPUSCULAR HGB CONC 34.2 g/dL (33.0-35.0); MEAN CORPUSCULAR VOLUME 91.2 fL (80.0-100.0); MEAN PLATELET VOLUME 7.9 fL (7.4-11.0); MONOCYTES # (AUTO) 1.3 x10^3/uL (0.3-0.8); MONOCYTES % (AUTO) 12.3 % (0.0-13.0); NEUTROPHILS # (AUTO) 7.7 x10^3/uL (2.2-4.8); NEUTROPHILS % (AUTO) 74.7 % (42.0-75.0); PLATELET COUNT 150 X10^3/uL (150.0-450.0); RED BLOOD COUNT 3.19 X10^6/uL (3.5-5.4); RED CELL DISTRIBUTION WIDTH 15.3 % (11.6-16.5); WHITE BLOOD COUNT 10.3 X10^3/uL (3.6-10.0)
[2020-01-27 06:21] LABS: ALANINE AMINOTRANSFERASE 19 Units/L (12-78); ALBUMIN 2.1 g/dL (3.4-5.0); ALKALINE PHOSPHATASE 78 Units/L (46-116); ASPARTATE AMINO TRANSFERASE 22 Units/L (15-37); BLOOD UREA NITROGEN 12 mg/dL (7-18); CALCIUM 8.3 mg/dL (8.5-10.1); CHLORIDE 102 mmol/L (98-107); COR CA(FOR HYPOALB) 9.8 mg/dL (8.5-10.1); CREATININE 0.95 mg/dL (0.55-1.02); SODIUM 135 mmol/L (136-145); TOTAL PROTEIN 5.8 g/dL (6.4-8.2); eGFR NON BLACK RACES 59 (>60)
[2020-01-27] MEDS: ALPHAGAN 0.2% OPHTH SOLN OP SCH ×2 (06:24→13:50)
[2020-01-27] MEDS: NS 1000 ML 1,000 ML IV SCH (06:24)
[2020-01-27] MEDS: ZOSYN VIAL 3.375 GRAMS 3.375 G in NS 100 ML IV + SPIKE MINIBAG* 100 ML IV SCH ×2 (06:24→13:51)
[2020-01-27] MEDS: MUCINEX EXPECTORANT PO SCH (08:32)
[2020-01-27] MEDS: TOPROL XL PO SCH (08:32)
[2020-01-27] MEDS: LASIX PO SCH (08:32)
[2020-01-27] MEDS: COSOPT OPTH OP SCH (08:33)
[2020-01-27] MEDS: K-DUR TAB 20 MEQ PO PRN (08:41)
[2020-01-27 12:05] VITALS: BP 166/67
== END 2020-01-27 14:45 | disposition home health service (06) | DRG 470 ==
LOC: ER 16:23 → MED/SURG 21:30
PROVIDERS: ADMIT Family Medicine; ATTEND Internal Medicine
DX: R82.998 Other abnormal findings in urine; I25.10 Atherosclerotic heart disease of native coronary artery without angina pectoris; Z11.59 Encounter for screening for other viral diseases; R79.1 Abnormal coagulation profile; W07.XXXA Fall from chair, initial encounter; R26.81 Unsteadiness on feet; S10.93XA Contusion of unspecified part of neck, initial encounter; Y92.008 Other place in unspecified non-institutional (private) residence as the place of occurrence of the external cause; R50.9 Fever, unspecified; R05 Cough; I10 Essential (primary) hypertension; J44.9 Chronic obstructive pulmonary disease, unspecified; S72.142A Displaced intertrochanteric fracture of left femur, initial encounter for closed fracture; S30.0XXA Contusion of lower back and pelvis, initial encounter; G89.11 Acute pain due to trauma
CPT/HCPCS: 36415; 36430; 70450; 71010; 71045; 73501; 80053; 81003; 82550; 82553; 83735; 84484; 85014; 85018; 85025; 85730; 86850; 86900; 86901; 86922; 87040; 87086; 87635; 93005; 94640; 94669; 94760; 96365; 96374; 96375; 99100; 99284; A4216; A4222; J0690; J1170; J1644; J1650; J1885; J1940; J2250; J2270; J2405; J2543; J2704; J2710; J3010; J3475; J3490; J7030; J7040; J7050; J7120; J7620; P9016

== ENCOUNTER 2021-07-18 14:59 | Observation (INO) ==
[2021-07-18 15:20] LABS: ABG ALLEN TEST POS; ABG BASE EXCESS -4.1 mmol/L (-2.0-2.0); ABG HCO3 19.6 mmol/L (22-26)
[2021-07-18] MEDS ORDERED: NS 1,000 ML IV 1,000 ML IV ONE (15:26)
[2021-07-18] MEDS ORDERED: NS 1,000 ML IV 1,000 ML ONE ×2 (15:27→19:33)
[2021-07-18 15:55] LABS: BASOPHILS % (AUTO) 0.2 % (0.2-1.0); HEMATOCRIT 30.8 % (36.0-47.0); HEMOGLOBIN 10.3 g/dL (12.0-16.0); LYMPHOCYTES # (AUTO) 0.8 X10^3/uL (1.3-2.9); LYMPHOCYTES % (AUTO) 19.2 % (21.0-51.0); MEAN CORPUSCULAR HEMOGLOBIN 30.6 pg (27.0-34.0); MEAN CORPUSCULAR HGB CONC 33.4 g/dL (33.0-35.0); MEAN CORPUSCULAR VOLUME 91.6 fL (80.0-100.0); MONOCYTES # (AUTO) 0.6 x10^3/uL (0.3-0.8); MONOCYTES % (AUTO) 13.4 % (0.0-13.0); NEUTROPHILS # (AUTO) 2.8 x10^3/uL (2.2-4.8); NEUTROPHILS % (AUTO) 67.2 % (42.0-75.0); PLATELET COUNT 167 X10^3/uL (150.0-450.0); RED BLOOD COUNT 3.37 X10^6/uL (3.5-5.4); RED CELL DISTRIBUTION WIDTH 15.3 % (11.6-16.5); WHITE BLOOD COUNT 4.2 X10^3/uL (3.6-10.0)
--- NOTE | 2021-07-18 16:03 | DR.DIZZY ---
HPI Time seen Time Seen by Provider: 07/18/21 15:43 PCP Primary Care Physician: DARION HPI Comment HPI Comment: An 86 y/o female pt. reported here via EMS from her PCPs office with lethargy and unable to get BP. She was swabbed positive for COVID -19 today at the doctor's visit. She denies SOB but had vomitted once. She has no diarrhea according to her spouse. Complaint Chief Complaint:: EMS WAS CALLED TO [facility]'S OFFICE FOR PATIENT BEING VERY LETHARGIC, UNABLE TO GET BLOOD PRESSURE, AND SPO2. PATIENT WAS SWABBED AT THE OFFICE AND WAS POSITIVE FOR COVID PATIENT WAS EXPOSED TO RECENT COVID POSITIVE GRAND DAUGHTER. PATIENT IS NOTED TO BE VERY WEAK AND LETHARGIC. PATIENT STATES SHE HAS BEEN SICK FOR A FEW DAYS. PATIENT DOES STATES SHE HAS VOMITED X1 DAY BUT DENIES DIARRHEA. COVID-19 Coronavirus risk:travel/contact w/high risk person: No Has patient experienced Coronavirus symptoms: No Coronavirus symptoms experienced: Shortness of Breath Nurses Notes Reviewed Nurses Notes Review: Yes Source History Provided: Patient and Family Member Mode of Arrival Mode of Arrival: EMS Timing Onset of Chief Complaint: 07/16/21 Location of Weakness Weakness Location: Generalized Context Stroke Symptoms: None Severity Severity: Normal activity level Modifying factors Worsens: Nothing Associated signs and symptoms Associated Signs and Symptoms: Normal PMH PMH Past Medical History: Yes Past Medical History: Anxiety, Arthritis, COPD, Coronary Artery Disease, GERD and Hypertension Past Surgical History: Yes Surgical History: Angioplasty/Stents, CABG/Valve Surgery, Cholecystectomy and Hysterectomy Family History History of Family Medical Conditions: Yes Family Medical History: Diabetes Mellitus, Coronary Artery Disease and Hyperten nikos Social History Does any household member use tobacco: No Alcohol Use: None Do you use any recreational Drugs:: No Lives With: Family Lives Where: Home Travel Risk Coronavirus risk:travel/contact w/high risk person: No Has patient experienced Coronavirus symptoms: No Coronavirus symptoms experienced: Shortness of Breath Infectious screening In the last 2 months have you had wt loss of >10#?: NO Have you had fever, night sweats or hemotysis?: No Have you traveled outside the country in the last 6 months?: No Isolation: Droplet ROS Review of Systems Constitutional: Other (Lethargy) Eyes: No Symptoms Reported ENTM: No Symptoms Reported Respiratoy: No Symptoms Reported Cardiovascular: No Symptoms Reported Gastrointestinal/Abdominal: No Symptoms Reported Genitourinary: No Symptoms Reported Neurological: No Symptoms Reported Musculoskeletal: No Symptoms Reported Integumentary: No Symptoms Reported Hematologic/Lymphatic: No Symptoms Reported Endocrine: No Symptoms Reported Psychiatric: No Symptoms Reported PE Vital Signs Vitals: Temperature 98.2 F Pulse Rate 74 Respiratory Rate 22 Blood Pressure [Right Arm] 129/89 Blood Pressure 129/70 O2 Sat by Pulse Oximetry 100 General Limitations: No Limitations General Appearance: In No Apparent Distress and Lethargic Head Head Exam: Normal Inspection, Atraumatic and Normocephalic Eyes Eye exam: Normal Appearance and EOMI ENT ENT Exam: Normal Exam, Normal Oropharynx, Normal External Ear Exam and Mucous Membranes Dry Neck Neck Exam: Normal Inspection, Full ROM and Trachea Midline Chest Chest Inspection: Normal Inspection and Symmetric Chest Wall Rise Respiratory Respiratory Exam: Normal Lung Sounds Bilat Cardiovascular Cardiovascular Exam: Regular Rate, Normal Rhythm, Normal Heart Sounds, +S1 and +S2 Abdominal Exam Abdominal Exam: Normal Inspection, Normal Bowel Sounds and Soft Rectal Rectal Exam: Deferred Extremeties Extremities Exam: Normal Inspection Back Back Exam: Normal Inspection Neurologic Neurological Exam: Other (Lethargic) Skin Skin Exam: Dry and Intact COURSE Reevaluation 1st: Unchanged Education/Counseling Education/Counseling: Family, Education and Counseling Educated On: Treatment, Diagnosis, Prognosis and Needs for Follow Up ROR Labs Reviewed Laboratory Results Reviewed?: Yes Result Diagrams: 07/18/21 15:20 07/18/21 15:20 Laboratory: WBC 4.2 X10^3/uL (3.6-10.0) 07/18/21 15: RBC 3.37 X10^6/uL (3.5-5.4) L 07/18/21 15:20 Hgb 10.3 g/dL (12.0-16.0) L 07/18/21 15:20 Hct 30.8 % (36.0-47.0) L 07/18/21 15:20 MCV 91.6 fL (80.0-100.0) 07/18/21 15:20 MCH 30.6 pg (27.0-34.0) 07/18/21 15:20 MCHC 33.4 g/dL (33.0-35.0) 07/18/21 15:20 RDW 15.3 % (11.6-16.5) 07/18/21 15:20 Plt Count 167 X10^3/uL (150.0-450.0) 07/18/21 15:20 MPV 8.0 fL (7.4-11.0) 07/18/21 15:20 Neut % (Auto) 67.2 % (42.0-75.0) 07/18/21 15:20 Lymph % (Auto) 19.2 % (21.0-51.0) L 07/18/21 15:20 [place] % (Auto) 13.4 % (0.0-13.0) H 07/18/21 15:20 Eos % (Auto) 0.0 % (0.9-2.9) L 07/18/21 15:20 Baso % (Auto) 0.2 % (0.2-1.0) 07/18/21 15:20 Neut # (Auto) 2.8 x10^3/uL (2.2-4.8) 07/18/21 15:20 Lymph # (Auto) 0.8 X10^3/uL (1.3-2.9) L 07/18/21 15:20 [place] # (Auto) 0.6 x10^3/uL (0.3-0.8) 07/18/21 15:20 Eos # (Auto) 0.0 x10^3/uL (0.0-0.2) 07/18/21 15:20 Baso # (Auto) 0.0 X10^3/uL (0.0-0.1) 07/18/21 15:20 Absolute Nucleated RBC 0.4 /100WBC 07/18/21 15:20 Sample Site Rr 07/18/21 15:19 ABG pH 7.410 (7.35-7.45) 07/18/21 15:19 ABG pCO2 31.0 mmHg (35.0-45.0) L 07/18/21 15:19 ABG pO2 84.0 mmHg (80.0-100.0) 07/18/21 15:19 ABG HCO3 19.6 mmol/L (22-26) L 07/18/21 15:19 ABG O2 Saturation 96.0 % (90-100) 07/18/21 15:19 ABG Base Excess -4.1 mmol/L (-2.0-2.0) L 07/18/21 15:19 Roman Test Pos 07/18/21 15:19 A-a Gradient 27.0 mmHg 07/18/21 15:19 FiO2 21.0 07/18/21 15:19 Blood Gas Comments Pt césar well. sd 07/18/21 15:19 Sodium 137 mmol/L (136-145) 07/18/21 15:20 Corrected Sodium TNP 07/18/21 15:20 Potassium 3.9 mmol/L (3.5-5.1) 07/18/21 15:20 Chloride 104 mmol/L (98-107) 07/18/21 15:20 Carbon Dioxide 23.9 mmol/L (21-32) 07/18/21 15:20 BUN 19 mg/dL (7-18) H 07/18/21 15:20 Creatinine 1.31 mg/dL (0.55-1.02) H 07/18/21 15:20 Est GFR (MDRD) Af Amer 49 (>60) L 07/18/21 15:20 Est GFR (MDRD) Non-Af 41 (>60) L 07/18/21 15:20 Glucose 102 mg/dL (65-99) H 07/18/21 15:20 Lactic Acid 0.6 mmol/L (0.4-2.0) 07/18/21 15:20 Calcium 8.7 mg/dL (8.5-10.1) 07/18/21 15:20 Corrected Calcium 9.3 mg/dL (8.5-10.1) 07/18/21 15:20 Total Bilirubin 0.50 mg/dL (0.2-1.0) 07/18/21 15:20 AST 28 Units/L (15-37) 07/18/21 15:20 ALT 14 Units/L (12-78) 07/18/21 15:20 Alkaline Phosphatase 66 Units/L (46-116) 07/18/21 15:20 Creatine Kinase 70 Units/L (26-192) 07/18/21 15:20 CK-MB (CK-2) < 1.0 ng/mL (0-4.0) 07/18/21 15:20 CK/CKMB % Calc 1.4 % (<4) 07/18/21 15:20 Troponin I 0.04 ng/mL (0-1.5) 07/18/21 15:20 Total Protein 7.7 g/dL (6.4-8.2) 07/18/21 15:20 Albumin 3.3 g/dL (3.4-5.0) L 07/18/21 15:20 Globulin 4.4 g/dL (2.5-4.5) 07/18/21 15:20 Albumin/Globulin Ratio 0.8 Ratio (1.1-2.1) L 07/18/21 15:20 Specimen Type Catherized urine 07/18/21 16:16 Urine Color Dark yellow (YELLOW) 07/18/21 16:16 Urine Appearance Slightly hazy (CLEAR) 07/18/21 16:16 Urine pH 5.0 (5.0 - 8.0) 07/18/21 16:16 Ur Specific [place] 1.020 (1.000-1.030) 07/18/21 16:16 Urine Protein 4+ (NEGATIVE) 07/18/21 16:16 Urine Glucose (UA) Negative (NEGATIVE) 07/18/21 16:16 Urine Ketones Negative (NEGATIVE) 07/18/21 16:16 Urine Occult Blood 1+ (NEGATIVE) 07/18/21 16:16 Urine Nitrite Negative (NEGATIVE) 07/18/21 16:16 Urine Bilirubin Negative (NEGATIVE) 07/18/21 16:16 Urine Urobilinogen 2+ (NORMAL) 07/18/21 16:16 Ur Leukocyte Esterase 1+ (NEGATIVE) 07/18/21 16:16 Urine RBC 3-5 /HPF (0-3) A 07/18/21 16:16 Urine WBC 5-10 /HPF (0-5) A 07/18/21 16:16 Ur Squamous Epith Cells Few /HPF (NEGATIVE) 07/18/21 16:16 Urine Bacteria 3+ /HPF (NEGATIVE) 07/18/21 16:16 Ur Culture Indicated? Yes/culture set up 07/18/21 16:16 EKG Rate: 74 [place]: Normal Rhythm: NSR Block: None Hypertrophy: LVH ST: Normal Opioid Opioid Risk Tool Age (Jose Manuel box if 16-45): No History of Preadolescent Sexual Abuse: No Total: 0 Total Score Risk Category: Low Risk Copyright: Agustín GREENE predicting aberrant behaviors Diagnosis Discharge Problem: Lethargy, Dehydration, COVID-19 CAD (coronary artery disease) Qualifiers: Coronary Disease-Associated Artery/Lesion type: [place] artery [place] vs. transplanted heart: [place] heart Associated angina: without angina Qualified Code(s): I25.10 - Atherosclerotic heart disease of [place] coronary artery without angina pectoris COPD (chronic obstructive pulmonary disease) Qualifiers: COPD type: unspecified COPD Qualified Code(s): J44.9 - Chronic obstructive pulmonary disease, unspecified ADDITIONAL NOTES Additional Notes Additional Notes: Name: JON LOUISE JAcct#: [id number]: [id number] : 1935Sex: FLocation: ER Order Number(s): [id number](s):CHEST, 1 VIEW Ordering Physician: NII PEGUERO Primary Care: Odin Franco M.D. Service Date: 07/18/21 Service Time: 1544 HISTORY HYPOTENSION STUDY CHEST, 1 VIEW COMPARISON January 26, 2020 TECHNIQUE Chest radiographic imaging, AP portable projection, 1 image FINDINGS Mild cardiomegaly. Status post median sternotomy and prosthetic valve replacement. Mild increased interstitial markings; similar to the previous exam. No focal airspace disease. No pleural effusion. No pneumothorax. No acute osseous abnormality. IMPRESSION No imaging findings of acute cardiopulmonary disease. Electronically signed by: Tanner Marte (Jul 18, 2021 16:13:40) Report Electronically signed: 07/18/21 1614 CC: Nii Peguero
--- NOTE | 2021-07-18 16:14 | RAD ---
HISTORYHYPOTENSIONSTUDYCHEST, 1 VIEWCOMPARISONJuly 2019TECHNIQUEChest radiographic imaging, AP portable projection, 1 imageFINDINGSMild cardiomegaly.Status post median sternotomy and prosthetic valve replacement.Mild increased interstitial markings; similar to the previous exam.No focal airspace disease.No pleural effusion.No pneumothorax.No acute osseous abnormality.IMPRESSIONNo imaging findings of acute cardiopulmonary disease.Electronically signed by: Tanner Marte (Jul 18, 2021 16:13:40)
[2021-07-18 16:15] LABS: ALANINE AMINOTRANSFERASE 14 Units/L (12-78); ALBUMIN 3.3 g/dL (3.4-5.0); ALKALINE PHOSPHATASE 66 Units/L (46-116); ASPARTATE AMINO TRANSFERASE 28 Units/L (15-37); BLOOD UREA NITROGEN 19 mg/dL (7-18); CALCIUM 8.7 mg/dL (8.5-10.1); CARBON DIOXIDE 23.9 mmol/L (21-32); CHLORIDE 104 mmol/L (98-107); CKMB % 1.4 % (<4); COR CA(FOR HYPOALB) 9.3 mg/dL (8.5-10.1); CREATINE KINASE 70 Units/L (26-192); CREATINE KINASE MB < 1.0 ng/mL (0-4.0); CREATININE 1.31 mg/dL (0.55-1.02); SODIUM 137 mmol/L (136-145); TOTAL PROTEIN 7.7 g/dL (6.4-8.2); eGFR NON BLACK RACES 41 (>60)
[2021-07-18 17:13] LABS: BILIRUBIN,URINE NEGATIVE (NEGATIVE); BLOOD/HEMOGLOBIN,URINE 1+ (NEGATIVE); GLUCOSE, URINE NEGATIVE (NEGATIVE); KETONES,URINE NEGATIVE (NEGATIVE); LEUKOCYTE ESTERASE ,URINE 1+ (NEGATIVE); NITRITES,URINE NEGATIVE (NEGATIVE); PROTEIN,URINE 4+ (NEGATIVE); UROBILINOGEN,URINE 2+ (NORMAL)
[2021-07-18 17:20] LABS: APPEARANCE,URINE SLIGHTLY HAZY (CLEAR); COLOR,URINE DARK YELLOW (YELLOW)
[2021-07-18 17:21] LABS: BACTERIA,URINE 3+ /HPF (NEGATIVE); SQUAMOUS EPITHELIAL CELL,UR FEW /HPF (NEGATIVE)
--- NOTE | 2021-07-18 19:13 | CT ---
HISTORYLETHARGYSTUDYBRAIN W/O CONCOMPARISONCT head dated January 22, 2020.TECHNIQUEMultiple axial images of the head without contrast. Dose reduction techniques including Automated Exposure Control (AEC) and adjustment of mA and kV were utilized.FINDINGSAge related cortical atrophy and chronic small vessel ischemic changes. [No acute intraparenchymal hemorrhage or mass can be identified.] [No extra-axial fluid collections are seen.] [No alteration in the attenuation of the brain parenchyma can be identified to suggest acute or subacute ischemic change.] [The ventricular system is symmetric and nondilated.] [id number] mucosal thickening of the visualized paranasal sinuses. The mastoid air cells are clear.IMPRESSIONOne. No CT evidence of acute intracranial pathology.Two. Sinus disease as above.Electronically signed by: BROOKLYN WHITLEY (Jul 18, 2021 19:11:14)
[2021-07-18] MEDS: NS 1,000 ML IV 1,000 ML IV SCH (19:37)
[2021-07-18] MEDS ORDERED: BROVANA IN SCH (21:00)
[2021-07-18] MEDS ORDERED: PULMICORT NEB TX 0.5 MG NEB SCH (21:00)
[2021-07-18] MEDS ORDERED: PULMICORT NEB TX 0.5 MG NEB ONE (21:46)
[2021-07-18] MEDS ORDERED: BROVANA ONE (21:46)
[2021-07-18] MEDS: PULMICORT NEB TX 0.5 MG NEB SCH (21:50)
[2021-07-18] MEDS: BROVANA IN SCH (21:50)
[2021-07-19] MEDS: NS 1,000 ML IV 1,000 ML IV SCH ×4 (04:28→21:11)
[2021-07-19 05:27] LABS: BASOPHILS % (AUTO) 0.2 % (0.2-1.0); HEMATOCRIT 28.4 % (36.0-47.0); HEMOGLOBIN 9.4 g/dL (12.0-16.0); LYMPHOCYTES # (AUTO) 1.1 X10^3/uL (1.3-2.9); LYMPHOCYTES % (AUTO) 30.6 % (21.0-51.0); MEAN CORPUSCULAR HEMOGLOBIN 30.5 pg (27.0-34.0); MEAN CORPUSCULAR HGB CONC 33.1 g/dL (33.0-35.0); MEAN CORPUSCULAR VOLUME 91.9 fL (80.0-100.0); MEAN PLATELET VOLUME 7.9 fL (7.4-11.0); MONOCYTES # (AUTO) 0.5 x10^3/uL (0.3-0.8); MONOCYTES % (AUTO) 15.2 % (0.0-13.0); NEUTROPHILS # (AUTO) 1.9 x10^3/uL (2.2-4.8); PLATELET COUNT 138 X10^3/uL (150.0-450.0); RED BLOOD COUNT 3.09 X10^6/uL (3.5-5.4); RED CELL DISTRIBUTION WIDTH 15.5 % (11.6-16.5); WHITE BLOOD COUNT 3.6 X10^3/uL (3.6-10.0)
[2021-07-19 05:38] LABS: ALANINE AMINOTRANSFERASE 13 Units/L (12-78); ALBUMIN 2.7 g/dL (3.4-5.0); ALKALINE PHOSPHATASE 54 Units/L (46-116); ASPARTATE AMINO TRANSFERASE 23 Units/L (15-37); BLOOD UREA NITROGEN 13 mg/dL (7-18); CARBON DIOXIDE 21.4 mmol/L (21-32); CHLORIDE 108 mmol/L (98-107); CREATININE 0.89 mg/dL (0.55-1.02); SODIUM 138 mmol/L (136-145); TOTAL PROTEIN 6.6 g/dL (6.4-8.2); eGFR NON BLACK RACES > 60 (>60)
[2021-07-19] MEDS ORDERED: NS 1,000 ML IV 1,000 ML ONE (05:41)
[2021-07-19 05:51] LABS: CALCIUM 8.1 mg/dL (8.5-10.1); COR CA(FOR HYPOALB) 9.1 mg/dL (8.5-10.1)
[2021-07-19] MEDS ORDERED: VENTOLIN or PROAIR HFA IN PRN (06:11)
[2021-07-19 06:13] LABS: BAND NEUTROPHILS % 8 % (0-10); OVALOCYTES PRESENT; PLATELET MORPHOLOGY COMMENT NORMAL (NORMAL)
[2021-07-19] MEDS ORDERED: PULMICORT NEB TX 0.5 MG NEB ONE (07:22)
[2021-07-19] MEDS ORDERED: REMDESIVIR 200 MG in NS 100 ML IV 140 ML IV NR (07:49)
[2021-07-19] MEDS ORDERED: PROTONIX TAB 40 MG PO ONE (07:57)
[2021-07-19] MEDS ORDERED: NS 250 ML IV 500 ML IV ONE (07:58)
[2021-07-19] MEDS ORDERED: REMDESIVIR IV ONE (07:58)
[2021-07-19] MEDS ORDERED: ZITHROMAX INJ 500 MG VIAL IV ONE (07:58)
[2021-07-19] MEDS ORDERED: PEPCID TAB 40 MG ONE (07:58)
[2021-07-19] MEDS ORDERED: ROCEPHIN 1 GRAM IV PREMIX 1 G/50 ML IV.SOLN. IV ONE (07:59)
[2021-07-19] MEDS: BROVANA IN SCH ×2 (08:20→21:01)
[2021-07-19] MEDS: PULMICORT NEB TX 0.5 MG NEB SCH ×2 (08:20→21:01)
[2021-07-19] MEDS: ZITHROMAX INJ 500 MG VIAL 250 MG in NS 250 ML IV 250 ML IV SCH (08:27)
[2021-07-19] MEDS: PEPCID TAB 40 MG PO SCH (08:27)
[2021-07-19] MEDS: ROCEPHIN 1 GRAM IV PREMIX 1 G/50 ML IV.SOLN. IV SCH ×2 (08:27→09:32)
[2021-07-19] MEDS: TOPROL XL PO SCH (08:27)
[2021-07-19] MEDS ORDERED: COSOPT OPTH OP SCH (09:00)
[2021-07-19] MEDS ORDERED: PATIENT'S HOME MEDICATION (Fluticasone Propion-Salmeterol [Advair Hfa] 115-21 mcg/actuatio IN SCH (09:00)
[2021-07-19] MEDS ORDERED: PROTONIX TAB 40 MG PO SCH (09:00)
--- NOTE | 2021-07-19 09:05 | RAD ---
HISTORYFollow-up COVID-19STUDYChest AP [id number]/05/2022FINDINGSPati ent is status post median sternotomy and valve replacement. Heart size is normal. Mary are normal. Aorta is calcified. No congestive heart failure is noted. Lungs are hyperinflated. Diffuse mild and likely chronic interstitial lung changes are present and stable. No alveolar infiltrates or areas of consolidation, pleural effusions, or pneumothoraces identified. Bony thorax is unremarkable.IMPRESSIONNo change cardiomegaly without congestive heart failureNo change hyperinflationNo change interstitial lung diseaseElectronically signed by: CHAN BOGGS (Jul 19, 2021 09:04:20)
[2021-07-19] MEDS: PROTONIX INJ 40 MG VIAL IVP SCH (09:33)
[2021-07-19] MEDS ORDERED: CATAPRES TAB 0.1 MG ONE (09:39)
[2021-07-19] MEDS ORDERED: SOLU-Medrol 40 MG VIAL ONE (09:40)
[2021-07-19] MEDS: SOLU-Medrol 40 MG VIAL IVP SCH ×3 (10:29→21:08)
--- NOTE | 2021-07-19 11:48 | DR.H&P ---
H&P - History & Physical for Day of: H&P Date: 07/19/21 - Chief Complaint Chief Complaint: COVID 19, ICNREASED SOB, WEAKNESS, NV - History of Present Illness History of Present Illness: PT IS 86 BM ER ADMISSION AFTER PRESENTING PER EMS WITH COVID 19, ICNREASED SOB, WEAKNESS, NV. PT WAS DIFFICULT TO AROUSE IN OUR OFFICE, UNABLE TO OBTAIN BP OR PULSE OX. PT WOULD OPEN HER EYES BUT LIMITED VERBAL RESPONSES. PT SPOUSE STATES THEIR GRANDAUGHTER WAS POSTIVE FOR COVID. PT HAS PMH OF COPD, CHF, CAD, OA, ANEMIA. PT ADMITTED FOR TREATMENT OF ACUTE ILLNESS. - Past Medical History Past Medical History: Coronary Artery Disease, Hypertension, Anxiety, COPD, GERD, Arthritis - Past Surgical History Surgical History: Angioplasty/Stents, CABG/Valve Surgery, Cholecystectomy, Hysterectomy, Ortho Surgery - Family History Family Medical History: Diabetes Mellitus, Coronary Artery Disease, Hypertension - Social History Does patient currently use any type of tobacco product: No Have you used tobacco products in the last 12 months: No Type of Tobacco Use: None Does any household member use tobacco: No Alcohol Use: None Drug Use: None - Medications Home Medications: No Known Drug Allergies Allergy (Verified 04/18/18 18:28) CONTINUE taking the following medications albuterol sulfate [Ventolin HFA] 2 puff INHALATION Q4H PRN 07/18/21 [History] bimatoprost [Lumigan] 1 drp OPHTHALMIC (EYE) QHS 07/18/21 [History] famotidine 40 mg PO DAILY 07/18/21 [History] fluticasone propion-salmeterol [Advair HFA] 1 puff INHALATION BID 07/18/21 [History] megestrol 40 mg PO BID 07/18/21 [History] metoprolol succinate 25 mg PO DAILY 07/18/21 [History] netarsudil-latanoprost [Rocklatan] 1 drp OPHTHALMIC (EYE) QHS 07/18/21 [History] pantoprazole 40 mg PO BID 07/18/21 [History] tizanidine 4 mg PO TID PRN 07/18/21 [History] - Review of Systems Constitutional: Chills, Weakness, Malaise Eyes: No Symptoms Reported ENT: No Symptoms Reported Respiratory: Cough, Shortness of Breath, SOB with Excertion, Wheezing Gastrointestinal: Nausea, Vomiting Genitourinary: No Symptoms Reported Musculoskeletal: Leg Pain Skin: No Symptoms Reported Neurological: Weakness, Confusion (MILD, DECREASED ALERTNESS) - Physical Exam Vital Signs: Temperature 97.9 F Pulse Rate [Right Brachial] 82 Pulse Rate 85 Respiratory Rate 24 Blood Pressure [Right Arm] 164/83 Blood Pressure 191/94 O2 Sat by Pulse Oximetry 100 Oriented: Person Eyes: Normal Ear: Normal Respiratory: Rhonchi Throughout, RLL Diminished, LLL Diminished Cardiovascular: Normal, Edema : Normal Auscultation: Bowel Sounds: Normal Palpation: Normal Tenderness: Epigastric Skin: Decreased Turgur Musculoskeletal: Right, Left, Motor Deficit Mood Description: Calm Speech Pattern: Clear (WEAK VOICE), Delayed - Assessment/Plan (1) SOB (shortness of breath) Status: Acute (2) COVID-19 Status: Acute Plan: ADMIT, IV HYDRATION. ISOLATION DUE TO COVID 19. STRICT I&OS, RESP THERAPY, SUPPLEMENTAL O2. CARDIAC MONITORING, CXR ON ADMISSION. VERIFY HOME MEDICATION, BLOOD AND URINE CULTURE. IV ATBX, IV REMDESIVIR (3) AMS (altered mental status) Status: Acute (4) CAD (coronary artery disease) Qualifiers: Coronary Disease-Associated Artery/Lesion type: [place] artery [place] vs. transplanted heart: [place] heart Associated angina: without angina Qualified Code(s): I25.10 - Atherosclerotic heart disease of [place] coronary artery without angina pectoris Status: Acute (5) COPD (chronic obstructive pulmonary disease) Qualifiers: COPD type: unspecified COPD Qualified Code(s): J44.9 - Chronic obstructive pulmonary disease, unspecified Status: Acute (6) Dehydration Status: Acute (7) CAD (coronary artery disease) Status: Chronic - Allergies Allergies/Adverse Reactions: Allergies Allergy/AdvReac Type Severity Reaction Status Date / Time No Known Drug Allergies Allergy Verified 04/18/18 18:28
[2021-07-19] MEDS: PATIENT'S HOME MEDICATION OP SCH ×3 (13:19→21:09)
[2021-07-19] MEDS: CATAPRES TAB 0.1 MG PO PRN (18:11)
[2021-07-19] MEDS ORDERED: PATIENT'S HOME MEDICATION OP SCH (21:00)
[2021-07-19] MEDS ORDERED: NETARSUDIL LATANOPROST OP SCH (21:00)
[2021-07-20] MEDS: CATAPRES TAB 0.1 MG PO PRN (04:41)
[2021-07-20] MEDS ORDERED: PATIENT'S HOME MEDICATION (Alprazolam 0.5 mg tablet) PO PRN (05:01)
[2021-07-20] MEDS ORDERED: NORCO 10/325 TAB PO PRN (05:01)
[2021-07-20] MEDS ORDERED: XANAX PO PRN (05:28)
[2021-07-20 05:29] LABS: LYMPHOCYTES # (AUTO) 0.5 X10^3/uL (1.3-2.9); MEAN CORPUSCULAR VOLUME 89.9 fL (80.0-100.0); MONOCYTES # (AUTO) 0.1 x10^3/uL (0.3-0.8); NEUTROPHILS # (AUTO) 0.9 x10^3/uL (2.2-4.8)
[2021-07-20 05:33] LABS: BASOPHILS % (AUTO) 0.2 % (0.2-1.0); HEMATOCRIT 32.4 % (36.0-47.0); LYMPHOCYTES % (AUTO) 32.6 % (21.0-51.0); MEAN CORPUSCULAR HEMOGLOBIN 30.4 pg (27.0-34.0); MEAN CORPUSCULAR HGB CONC 33.8 g/dL (33.0-35.0); MEAN PLATELET VOLUME 8.5 fL (7.4-11.0); MONOCYTES % (AUTO) 6.8 % (0.0-13.0); NEUTROPHILS % (AUTO) 60.4 % (42.0-75.0); PLATELET COUNT 172 X10^3/uL (150.0-450.0); RED CELL DISTRIBUTION WIDTH 15.1 % (11.6-16.5)
[2021-07-20 05:39] LABS: ALANINE AMINOTRANSFERASE 12 Units/L (12-78); ALBUMIN 2.5 g/dL (3.4-5.0); ALKALINE PHOSPHATASE 56 Units/L (46-116); ASPARTATE AMINO TRANSFERASE 22 Units/L (15-37); BLOOD UREA NITROGEN 13 mg/dL (7-18); CALCIUM 8.4 mg/dL (8.5-10.1); CARBON DIOXIDE 22.3 mmol/L (21-32); CHLORIDE 108 mmol/L (98-107); COR CA(FOR HYPOALB) 9.6 mg/dL (8.5-10.1); COR NA(FOR HYPERGLY) 139 mmol/L (136-145); CREATININE 0.92 mg/dL (0.55-1.02); SODIUM 139 mmol/L (136-145); TOTAL PROTEIN 6.8 g/dL (6.4-8.2); eGFR NON BLACK RACES > 60 (>60)
[2021-07-20] MEDS: NS 1,000 ML IV 1,000 ML IV SCH ×3 (05:49→20:49)
[2021-07-20] MEDS: PATIENT'S HOME MEDICATION OP SCH ×5 (05:50→21:42)
[2021-07-20] MEDS: SOLU-Medrol 40 MG VIAL IVP SCH ×3 (05:50→21:41)
[2021-07-20 05:54] LABS: WHITE BLOOD COUNT 1.6 X10^3/uL (3.6-10.0)
--- NOTE | 2021-07-20 06:01 | RAD ---
HISTORYCOVID, COPDSTUDYChest AP [id number]/06/2022FINDINGSPati ent is rotated slightly to the right. Patient is status post median sternotomy and valve replacement. Heart is mildly enlarged. Aorta is calcified. Mary are normal. No congestive heart failure is noted. Lungs remain hyperinflated mild interstitial lung changes are present bilaterally not significantly different from the prior examination considering a difference in film technique. Right paratracheal soft tissue density is accentuated by the rotation and is likely due to the patient's known thyromegaly. No pleural effusions or pneumothoraces are identified. Bony thorax is unremarkable.IMPRESSIONNo change mild cardiomegaly without congestive heart failureNo change hyperinflation or mild interstitial lung diseaseProminent right paratracheal density likely related to the patient's known thyromegaly and somewhat accentuated by slight rightward rotationElectronically signed by: CHAN BOGGS (Jul 20, 2021 05:59:47)
[2021-07-20] MEDS ORDERED: KLOR-CON PO PRN (06:32)
[2021-07-20] MEDS ORDERED: MICRO K EXTEN CAP 10 MEQ PO PRN (06:32)
[2021-07-20] MEDS ORDERED: K-RIDER 10 MEQ/NS 100 ML 10 MEQ/100 ML BAG IV PRN (06:32)
[2021-07-20] MEDS ORDERED: K-DUR TAB 20 MEQ PO PRN (06:32)
[2021-07-20] MEDS ORDERED: POTASSIUM CHL 60 MEQ/NS 0.45% 500 ML IV PRN (06:32)
[2021-07-20] MEDS ORDERED: POTASSIUM CHL 40 MEQ/NS 0.45% 500 ML IV PRN (06:32)
[2021-07-20 07:09] LABS: ABG ALLEN TEST POS; ABG BASE EXCESS -3.4 mmol/L (-2.0-2.0); ABG HCO3 19.9 mmol/L (22-26)
[2021-07-20] MEDS: BROVANA IN SCH ×2 (08:35→20:05)
[2021-07-20] MEDS: PULMICORT NEB TX 0.5 MG NEB SCH ×2 (08:35→20:05)
[2021-07-20] MEDS: ROCEPHIN 1 GRAM IV PREMIX 1 G/50 ML IV.SOLN. IV SCH (08:38)
[2021-07-20] MEDS: PROTONIX INJ 40 MG VIAL IVP SCH (08:38)
[2021-07-20] MEDS: POTASSIUM CHLORIDE LIQ 20 MEQ UDC PO PRN (08:47)
[2021-07-20] MEDS: PEPCID TAB 40 MG PO SCH (08:48)
[2021-07-20] MEDS: TOPROL XL PO SCH (08:49)
[2021-07-20] MEDS: ZITHROMAX INJ 500 MG VIAL 250 MG in NS 250 ML IV 250 ML IV SCH (09:00)
[2021-07-20] MEDS: REMDESIVIR 100 MG in NS 250 ML IV 250 ML IV SCH (09:22)
[2021-07-20] MEDS: ROBITUSSIN DM PO SCH ×4 (10:30→20:44)
[2021-07-20] MEDS: ZESTRIL TAB 5 MG PO SCH (10:30)
[2021-07-20] MEDS: MAGNESIUM SULFATE 1 GRAM/100 mL PREMIX 1 G/100 ML BAG IV PRN (21:42)
[2021-07-21] MEDS: MAGNESIUM SULFATE 1 GRAM/100 mL PREMIX 1 G/100 ML BAG IV PRN (01:45)
[2021-07-21] MEDS: CATAPRES TAB 0.1 MG PO PRN ×2 (02:17→18:21)
[2021-07-21] MEDS: NS 1,000 ML IV 1,000 ML IV SCH ×3 (06:02→20:08)
[2021-07-21] MEDS: PATIENT'S HOME MEDICATION OP SCH ×5 (06:03→21:09)
[2021-07-21] MEDS: SOLU-Medrol 40 MG VIAL IVP SCH ×3 (06:03→21:09)
--- NOTE | 2021-07-21 06:12 | RAD ---
HISTORYCOVID HX: CAD, HTN, ASTHMA, PNEUMONIA, COPD, EMPHYSEMA SX: CABG, HYSTERECTOMY, GBSTUDYCHEST, 1 [id number]/07/2022FINDINGSThe trachea is midline. The cardiac silhouette is mildly enlarged. Median sternotomy wires and prosthetic heart valve noted. A mild increased interstitial markings are noted. No pneumothorax.. The lungs are clear without focal infiltrate or effusion. The bony thorax is unremarkable. Right paratracheal soft tissue density again noted likely due to patient's known thyromegaly. Stable portable chestIMPRESSIONNo acute cardiopulmonary findings .Electronically signed by: Salvador Martinez (Jul 21, 2021 06:10:48)
[2021-07-21 07:50] LABS: BASOPHILS % (AUTO) 0.4 % (0.2-1.0); HEMATOCRIT 33.9 % (36.0-47.0); HEMOGLOBIN 11.5 g/dL (12.0-16.0); LYMPHOCYTES # (AUTO) 0.6 X10^3/uL (1.3-2.9); LYMPHOCYTES % (AUTO) 13.3 % (21.0-51.0); MEAN CORPUSCULAR HEMOGLOBIN 30.3 pg (27.0-34.0); MEAN CORPUSCULAR HGB CONC 33.9 g/dL (33.0-35.0); MEAN CORPUSCULAR VOLUME 89.6 fL (80.0-100.0); MEAN PLATELET VOLUME 8.2 fL (7.4-11.0); MONOCYTES # (AUTO) 0.4 x10^3/uL (0.3-0.8); MONOCYTES % (AUTO) 9.1 % (0.0-13.0); NEUTROPHILS # (AUTO) 3.2 x10^3/uL (2.2-4.8); NEUTROPHILS % (AUTO) 77.2 % (42.0-75.0); PLATELET COUNT 229 X10^3/uL (150.0-450.0); RED BLOOD COUNT 3.78 X10^6/uL (3.5-5.4); WHITE BLOOD COUNT 4.1 X10^3/uL (3.6-10.0)
[2021-07-21 07:58] LABS: ALANINE AMINOTRANSFERASE 15 Units/L (12-78); ALBUMIN 2.8 g/dL (3.4-5.0); ALKALINE PHOSPHATASE 57 Units/L (46-116); ASPARTATE AMINO TRANSFERASE 25 Units/L (15-37); BLOOD UREA NITROGEN 15 mg/dL (7-18); CALCIUM 8.5 mg/dL (8.5-10.1); CARBON DIOXIDE 22.2 mmol/L (21-32); CHLORIDE 104 mmol/L (98-107); COR CA(FOR HYPOALB) 9.5 mg/dL (8.5-10.1); COR NA(FOR HYPERGLY) 137 mmol/L (136-145); MAGNESIUM 2.2 mg/dL (1.7-2.9); SODIUM 136 mmol/L (136-145); TOTAL PROTEIN 7.3 g/dL (6.4-8.2); eGFR NON BLACK RACES > 60 (>60)
[2021-07-21] MEDS: PEPCID TAB 40 MG PO SCH (08:18)
[2021-07-21] MEDS: PROTONIX INJ 40 MG VIAL IVP SCH (08:18)
[2021-07-21] MEDS: TOPROL XL PO SCH (08:20)
[2021-07-21] MEDS: ROBITUSSIN DM PO SCH ×4 (08:20→21:09)
[2021-07-21] MEDS: ZESTRIL TAB 5 MG PO SCH (08:21)
[2021-07-21] MEDS: REMDESIVIR 100 MG in NS 250 ML IV 250 ML IV SCH (08:22)
[2021-07-21] MEDS: ROCEPHIN 1 GRAM IV PREMIX 1 G/50 ML IV.SOLN. IV SCH (08:30)
[2021-07-21] MEDS: PULMICORT NEB TX 0.5 MG NEB SCH ×2 (09:10→21:02)
[2021-07-21] MEDS: BROVANA IN SCH ×2 (09:10→21:02)
[2021-07-21] MEDS: ZITHROMAX INJ 500 MG VIAL 250 MG in NS 250 ML IV 250 ML IV SCH (10:17)
[2021-07-21] MEDS: POTASSIUM CHLORIDE LIQ 20 MEQ UDC PO PRN (10:18)
--- NOTE | 2021-07-21 11:13 | PCM.PROG ---
Progress Note Progress Note for Day of Date of Exam: 07/21/21 Subjective Subjective: Pt is a 86 year old female past medical history of COPD, CHF, CAD, OA, Anemia, admitted for COVID-19, Acute Cystitis, Dehydration, and generalized weakness. This morning she reports feeling a little better. Labs/imaging: Wbc 4.1, Hgb 11.5, Plt 229, Na 136, K 3.2, Creatinine 0.90, Glucose 140, CXR: no acute cardiopulmonary findings. Urine culture positive for E. coli, Sputum culture positive for strep pneu. and yeast. Pt is currently receiving pneumonia protocol and treatment for UTI that includes: Solumedrol 40mg Q8h, Remdesivir, Rocephin, Zithromax, IVF NS@50ml/h, along with scheduled bronchodilators. She is currently on room air and does not require supplemental oxygen at this time. We will continue to closely monitor patient. Follow up labs/imaging in the morning. Time spent on clinical assessment, reviewing labs and imaging, decision making, and documentation greater than 45 minutes. Past Medical Family Social History Past Med/Fam/Surg Hx: No changes since H&P Allergies: Allergies No Known Drug Allergies Allergy (Verified 04/18/18 18:28) Review of Systems ROS: No change since H&P Vital Signs and I&O's Vital Signs: Temperature 98.4 F Pulse Rate [Right Brachial] 82 Pulse Rate 72 Respiratory Rate 29 Blood Pressure [Right Arm] 164/83 Blood Pressure 161/97 O2 Sat by Pulse Oximetry 98 Intake and Output: Intake & Output 07/18/21 07/19/21 07/20/21 07/21/21 23:59 23:59 23:59 23:59 Intake Total 628 / 628 1298 / 1298 1460 / 1460 940 / 940 Output Total 500 / 500 2150 / 2150 1450 / 1450 1000 / 1000 Balance 128 / 128 -852 / -852 / 60 Physical Exam Oriented: Person and Place Eyes: Normal Ear: Normal Respiratory: Diminished Cardiovascular: Normal and Edema : Normal Auscultation: Bowel Sounds: Normal Tenderness: Epigastric Skin: Decreased Turgur Musculoskeletal: Right, Left and Motor Deficit Mood Description: Calm Speech Pattern: Clear and Appropriate Laboratory and Diagnostics Result Diagrams: 07/21/21 07:32 07/21/21 07:32 Labs: 07/19/21 08:44 Sputum - Expectorated Sputum Sputum Culture - Preliminary 07/19/21 08:44 Sputum - Expectorated Sputum - Final 07/18/21 16:16 Urine,Catheterized Urine Culture - Final Escherichia Coli 07/18/21 15:20 Blood Blood Culture - Preliminary 07/18/21 15:10 Blood Blood Culture - Preliminary Laboratory WBC 4.1 X10^3/uL (3.6-10.0) 07/21/21 07:32 RBC 3.78 X10^6/uL (3.5-5.4) 07/21/21 07:32 Hgb 11.5 g/dL (12.0-16.0) L 07/21/21 07:32 Hct 33.9 % (36.0-47.0) L 07/21/21 07:32 MCV 89.6 fL (80.0-100.0) 07/21/21 07:32 MCH 30.3 pg (27.0-34.0) 07/21/21 07:32 MCHC 33.9 g/dL (33.0-35.0) 07/21/21 07:32 RDW 15.0 % (11.6-16.5) 07/21/21 07:32 Plt Count 229 X10^3/uL (150.0-450.0) 07/21/21 07:32 Plt Count Comment Decreased (ADEQUATE) A 07/19/21 05:07 MPV 8.2 fL (7.4-11.0) 07/21/21 07:32 Neut % (Auto) 77.2 % (42.0-75.0) H 07/21/21 07:32 Lymph % (Auto) 13.3 % (21.0-51.0) L 07/21/21 07:32 [place] % (Auto) 9.1 % (0.0-13.0) 07/21/21 07:32 Eos % (Auto) 0.0 % (0.9-2.9) L 07/21/21 07:32 Baso % (Auto) 0.4 % (0.2-1.0) 07/21/21 07:32 Neut # (Auto) 3.2 x10^3/uL (2.2-4.8) 07/21/21 07:32 Lymph # (Auto) 0.6 X10^3/uL (1.3-2.9) L 07/21/21 07:32 [place] # (Auto) 0.4 x10^3/uL (0.3-0.8) 07/21/21 07:32 Eos # (Auto) 0.0 x10^3/uL (0.0-0.2) 07/21/21 07:32 Baso # (Auto) 0.0 X10^3/uL (0.0-0.1) 07/21/21 07:32 Absolute Nucleated RBC 0.1 /100WBC 07/21/21 07:32 Total Counted 100 07/19/21 05:07 Neutrophils % (Manual) 62 % (39-76) 07/19/21 05:07 Band Neutrophils % 8 % (0-10) 07/19/21 05:07 Lymphocytes % (Manual) 20 % (13-43) 07/19/21 05:07 Monocytes % (Manual) 10 % (4-9) H 07/19/21 05:07 Plt Morphology Comment Normal (NORMAL) 07/19/21 05:07 RBC Morphology Abnormal (NORMAL) A 07/19/21 05:07 Ovalocytes Present 07/19/21 05:07 Sample Site Lr 07/20/21 07:04 ABG pH 7.430 (7.35-7.45) 07/20/21 07:04 ABG pCO2 30.0 mmHg (35.0-45.0) L 07/20/21 07:04 ABG pO2 72.0 mmHg (80.0-100.0) L 07/20/21 07:04 ABG HCO3 19.9 mmol/L (22-26) L 07/20/21 07:04 ABG O2 Saturation 95.0 % (90-100) 07/20/21 07:04 ABG Base Excess -3.4 mmol/L (-2.0-2.0) L 07/20/21 07:04 Roman Test Pos 07/20/21 07:04 A-a Gradient 40.0 mmHg 07/20/21 07:04 FiO2 21.0 07/20/21 07:04 Blood Gas Comments Pt césar well cdn 07/20/21 07:04 Sodium 136 mmol/L (136-145) 07/21/21 07:32 Corrected Sodium 137 mmol/L (136-145) 07/21/21 07:32 Potassium 3.2 mmol/L (3.5-5.1) L 07/21/21 07:32 Chloride 104 mmol/L (98-107) 07/21/21 07:32 Carbon Dioxide 22.2 mmol/L (21-32) 07/21/21 07:32 BUN 15 mg/dL (7-18) 07/21/21 07:32 Creatinine 0.90 mg/dL (0.55-1.02) 07/21/21 07:32 Est GFR (MDRD) Af Amer > 60 (>60) 07/21/21 07:32 Est GFR (MDRD) Non-Af > 60 (>60) 07/21/21 07:32 Glucose 140 mg/dL (65-99) H 07/21/21 07:32 Lactic Acid 0.6 mmol/L (0.4-2.0) 07/18/21 15:20 Calcium 8.5 mg/dL (8.5-10.1) 07/21/21 07:32 Corrected Calcium 9.5 mg/dL (8.5-10.1) 07/21/21 07:32 Magnesium 2.2 mg/dL (1.7-2.9) 07/21/21 07:32 Total Bilirubin 0.30 mg/dL (0.2-1.0) 07/21/21 07:32 AST 25 Units/L (15-37) 07/21/21 07:32 ALT 15 Units/L (12-78) 07/21/21 07:32 Alkaline Phosphatase 57 Units/L (46-116) 07/21/21 07:32 Creatine Kinase 70 Units/L (26-192) 07/18/21 15:20 CK-MB (CK-2) < 1.0 ng/mL (0-4.0) 07/18/21 15:20 CK/CKMB % Calc 1.4 % (<4) 07/18/21 15:20 Troponin I 0.04 ng/mL (0-1.5) 07/18/21 15:20 Total Protein 7.3 g/dL (6.4-8.2) 07/21/21 07:32 Albumin 2.8 g/dL (3.4-5.0) L 07/21/21 07:32 Globulin 4.5 g/dL (2.5-4.5) 07/21/21 07:32 Albumin/Globulin Ratio 0.6 Ratio (1.1-2.1) L 07/21/21 07:32 Specimen Type Catherized urine 07/18/21 16:16 Urine Color Dark yellow (YELLOW) 07/18/21 16:16 Urine Appearance Slightly hazy (CLEAR) 07/18/21 16:16 Urine pH 5.0 (5.0 - 8.0) 07/18/21 16:16 Ur Specific [place] 1.020 (1.000-1.030) 07/18/21 16:16 Urine Protein 4+ (NEGATIVE) 07/18/21 16:16 Urine Glucose (UA) Negative (NEGATIVE) 07/18/21 16:16 Urine Ketones Negative (NEGATIVE) 07/18/21 16:16 Urine Occult Blood 1+ (NEGATIVE) 07/18/21 16:16 Urine Nitrite Negative (NEGATIVE) 07/18/21 16:16 Urine Bilirubin Negative (NEGATIVE) 07/18/21 16:16 Urine Urobilinogen 2+ (NORMAL) 07/18/21 16:16 Ur Leukocyte Esterase 1+ (NEGATIVE) 07/18/21 16:16 Urine RBC 3-5 /HPF (0-3) A 07/18/21 16:16 Urine WBC 5-10 /HPF (0-5) A 07/18/21 16:16 Ur Squamous Epith Cells Few /HPF (NEGATIVE) 07/18/21 16:16 Urine Bacteria 3+ /HPF (NEGATIVE) 07/18/21 16:16 Ur Culture Indicated? Yes/culture set up 07/18/21 16:16 SARS CoV-2 RNA Rapid EDIL Positive (NEGATIVE) A 07/18/21 17:14 Plan (1) SOB (shortness of breath): Status: Acute (2) COVID-19: Status: Acute Plan: ADMIT, IV HYDRATION ISOLATION DUE TO COVID 19 STRICT I&OS, RESP THERAPY, SUPPLEMENTAL O2 CARDIAC MONITORING, CXR ON ADMISSION VERIFY HOME MEDICATION, BLOOD AND URINE CULTURE IV ATBX, IV REMDESIVIR (3) AMS (altered mental status): Status: Acute (4) CAD (coronary artery disease): Status: Acute Qualifiers: Associated angina: without angina Coronary Disease-Associated Artery/Lesion type: [place] artery [place] vs. transplanted heart: [place] heart Qualified Code(s): I25.10 - Atherosclerotic heart disease of [place] coronary artery without angina pectoris (5) COPD (chronic obstructive pulmonary disease): Status: Acute Qualifiers: COPD type: unspecified COPD Qualified Code(s): J44.9 - Chronic obstructive pulmonary disease, unspecified (6) Dehydration: Status: Acute (7) CAD (coronary artery disease): Status: Chronic
[2021-07-22] MEDS: NS 1,000 ML IV 1,000 ML IV SCH ×4 (01:20→21:16)
[2021-07-22 05:39] LABS: BASOPHILS % (AUTO) 0.1 % (0.2-1.0); HEMATOCRIT 31.8 % (36.0-47.0); HEMOGLOBIN 10.9 g/dL (12.0-16.0); LYMPHOCYTES # (AUTO) 0.4 X10^3/uL (1.3-2.9); LYMPHOCYTES % (AUTO) 11.1 % (21.0-51.0); MEAN CORPUSCULAR HGB CONC 34.1 g/dL (33.0-35.0); MEAN CORPUSCULAR VOLUME 88.2 fL (80.0-100.0); MEAN PLATELET VOLUME 8.4 fL (7.4-11.0); MONOCYTES # (AUTO) 0.3 x10^3/uL (0.3-0.8); MONOCYTES % (AUTO) 6.7 % (0.0-13.0); NEUTROPHILS # (AUTO) 3.1 x10^3/uL (2.2-4.8); NEUTROPHILS % (AUTO) 82.1 % (42.0-75.0); PLATELET COUNT 219 X10^3/uL (150.0-450.0); RED BLOOD COUNT 3.61 X10^6/uL (3.5-5.4); RED CELL DISTRIBUTION WIDTH 15.2 % (11.6-16.5); WHITE BLOOD COUNT 3.8 X10^3/uL (3.6-10.0)
[2021-07-22 06:23] LABS: BLOOD UREA NITROGEN 14 mg/dL (7-18); CALCIUM 7.6 mg/dL (8.5-10.1); CARBON DIOXIDE 24.3 mmol/L (21-32); CHLORIDE 107 mmol/L (98-107); COR NA(FOR HYPERGLY) 138 mmol/L (136-145); CREATININE 0.72 mg/dL (0.55-1.02); SODIUM 138 mmol/L (136-145); eGFR NON BLACK RACES > 60 (>60)
[2021-07-22] MEDS: SOLU-Medrol 40 MG VIAL IVP SCH ×3 (06:33→21:16)
[2021-07-22] MEDS: PATIENT'S HOME MEDICATION OP SCH ×6 (06:34→21:17)
[2021-07-22] MEDS: POTASSIUM CHLORIDE LIQ 20 MEQ UDC PO PRN (07:42)
[2021-07-22] MEDS: REMDESIVIR 100 MG in NS 250 ML IV 250 ML IV SCH (08:07)
[2021-07-22] MEDS: ROCEPHIN 1 GRAM IV PREMIX 1 G/50 ML IV.SOLN. IV SCH (08:07)
[2021-07-22] MEDS: PROTONIX INJ 40 MG VIAL IVP SCH (08:07)
[2021-07-22] MEDS: PEPCID TAB 40 MG PO SCH (09:00)
[2021-07-22] MEDS: ZITHROMAX INJ 500 MG VIAL 250 MG in NS 250 ML IV 250 ML IV SCH (09:00)
[2021-07-22] MEDS: ZESTRIL TAB 5 MG PO SCH (09:00)
[2021-07-22] MEDS: TOPROL XL PO SCH (09:00)
[2021-07-22] MEDS: ROBITUSSIN DM PO SCH ×4 (09:00→20:14)
[2021-07-22] MEDS: BROVANA IN SCH ×3 (09:25→21:41)
[2021-07-22] MEDS: PULMICORT NEB TX 0.5 MG NEB SCH ×3 (09:26→21:41)
--- NOTE | 2021-07-22 10:46 | PCM.PROG ---
Progress Note Progress Note for Day of Date of Exam: 07/22/21 Subjective Subjective: Pt is a 86 year old female past medical history of COPD, CHF, CAD, OA, Anemia, admitted for COVID-19, Acute Cystitis, Dehydration, and generalized weakness. This morning patient is sitting up in bed alert. No acute concerns overnight. Labs/imaging: Wbc 3.8, Hgb 10.9, Plt 219, Na 138, K 3.0, Creatinine 0.72, Glucose 120, CXR: no acute cardiopulmonary findings. Urine culture positive for E. coli, Sputum culture positive for strep pneu. and yeast. Pt is currently receiving pneumonia protocol and treatment for UTI that includes: Solumedrol 40mg Q8h, Remdesivir, Rocephin, Zithromax, IVF NS@50ml/h, along with scheduled bronchodilators. She is currently on room air and does not require supplemental oxygen at this time. Continue to closely monitor patient. Follow up labs/imaging in the morning. Time spent on clinical assessment, reviewing labs and imaging, decision making, and documentation greater than 45 minutes. Past Medical Family Social History Past Med/Fam/Surg Hx: No changes since H&P Allergies: Allergies No Known Drug Allergies Allergy (Verified 04/18/18 18:28) Review of Systems ROS: No change since H&P Vital Signs and I&O's Vital Signs: Temperature 98.2 F Pulse Rate [Right Brachial] 82 Pulse Rate 98 Respiratory Rate 16 Blood Pressure [Right Arm] 164/83 Blood Pressure 150/84 O2 Sat by Pulse Oximetry 98 Intake and Output: Intake & Output 07/19/21 07/20/21 07/21/21 07/22/21 23:59 23:59 23:59 23:59 Intake Total 1298 / 1298 1460 / 1460 2810 / 2810 450 / 450 Output Total 2150 / 2150 1450 / 1450 3600 / 3600 500 / 500 Balance -852 / -852 10 -790 / -790 -50 / -50 Physical Exam Oriented: Person and Place Eyes: Normal Ear: Normal Respiratory: Diminished Cardiovascular: Normal and Edema : Normal Auscultation: Bowel Sounds: Normal Tenderness: Epigastric Skin: Decreased Turgur Musculoskeletal: Right, Left and Motor Deficit Mood Description: Calm Speech Pattern: Clear and Appropriate Laboratory and Diagnostics Result Diagrams: 07/22/21 04:24 07/22/21 09:49 Labs: 07/19/21 08:44 Sputum - Expectorated Sputum Sputum Culture - Preliminary Streptococcus Pneumoniae 07/19/21 08:44 Sputum - Expectorated Sputum - Final 07/18/21 16:16 Urine,Catheterized Urine Culture - Final Escherichia Coli 07/18/21 15:20 Blood Blood Culture - Preliminary 07/18/21 15:10 Blood Blood Culture - Preliminary Laboratory WBC 3.8 X10^3/uL (3.6-10.0) 07/22/21 04:24 RBC 3.61 X10^6/uL (3.5-5.4) 07/22/21 04:24 Hgb 10.9 g/dL (12.0-16.0) L 07/22/21 04:24 Hct 31.8 % (36.0-47.0) L 07/22/21 04:24 MCV 88.2 fL (80.0-100.0) 07/22/21 04:24 MCH 30.0 pg (27.0-34.0) 07/22/21 04:24 MCHC 34.1 g/dL (33.0-35.0) 07/22/21 04:24 RDW 15.2 % (11.6-16.5) 07/22/21 04:24 Plt Count 219 X10^3/uL (150.0-450.0) 07/22/21 04:24 Plt Count Comment Cancelled 07/22/21 04:24 MPV 8.4 fL (7.4-11.0) 07/22/21 04:24 Neut % (Auto) 82.1 % (42.0-75.0) H 07/22/21 04:24 Lymph % (Auto) 11.1 % (21.0-51.0) L 07/22/21 04:24 [place] % (Auto) 6.7 % (0.0-13.0) 07/22/21 04:24 Eos % (Auto) 0.0 % (0.9-2.9) L 07/22/21 04:24 Baso % (Auto) 0.1 % (0.2-1.0) L 07/22/21 04:24 Neut # (Auto) 3.1 x10^3/uL (2.2-4.8) 07/22/21 04:24 Lymph # (Auto) 0.4 X10^3/uL (1.3-2.9) L 07/22/21 04:24 [place] # (Auto) 0.3 x10^3/uL (0.3-0.8) 07/22/21 04:24 Eos # (Auto) 0.0 x10^3/uL (0.0-0.2) 07/22/21 04:24 Baso # (Auto) 0.0 X10^3/uL (0.0-0.1) 07/22/21 04:24 Absolute Nucleated RBC 0.1 /100WBC 07/22/21 04:24 Total Counted Cancelled 07/22/21 04:24 Neutrophils % (Manual) Cancelled 07/22/21 04:24 Band Neutrophils % Cancelled 07/22/21 04:24 Lymphocytes % (Manual) Cancelled 07/22/21 04:24 Monocytes % (Manual) Cancelled 07/22/21 04:24 Eosinophils % (Manual) Cancelled 07/22/21 04:24 Basophils % (Manual) Cancelled 07/22/21 04:24 Metamyelocytes % Cancelled 07/22/21 04:24 Myelocytes % Cancelled 07/22/21 04:24 Promyelocytes % Cancelled 07/22/21 04:24 Nucleated RBCs Cancelled 07/22/21 04:24 Atypical Lymphocytes Cancelled 07/22/21 04:24 Blast Cells Cancelled 07/22/21 04:24 Smudge Cells Cancelled 07/22/21 04:24 Toxic Granulation Cancelled 07/22/21 04:24 Dohle Bodies Cancelled 07/22/21 04:24 Keke Rods Cancelled 07/22/21 04:24 Plt Clumps, EDTA Cancelled 07/22/21 04:24 Giant Platelets Cancelled 07/22/21 04:24 Plt Morphology Comment Cancelled 07/22/21 04:24 RBC Morphology Cancelled 07/22/21 04:24 Dimorphic RBCs Cancelled 07/22/21 04:24 Polychromasia Cancelled 07/22/21 04:24 Hypochromasia Cancelled 07/22/21 04:24 Poikilocytosis Cancelled 07/22/21 04:24 Basophilic Stippling Cancelled 07/22/21 04:24 Anisocytosis Cancelled 07/22/21 04:24 Microcytosis Cancelled 07/22/21 04:24 Macrocytosis Cancelled 07/22/21 04:24 Spherocytes Cancelled 07/22/21 04:24 Pappenheimer Bodies Cancelled 07/22/21 04:24 Sickle Cells Cancelled 07/22/21 04:24 Target Cells Cancelled 07/22/21 04:24 Tear Drop Cells Cancelled 07/22/21 04:24 Ovalocytes Cancelled 07/22/21 04:24 Stomatocytes Cancelled 07/22/21 04:24 Helmet Cells Cancelled 07/22/21 04:24 [place] Bodies Cancelled 07/22/21 04:24 [place] Rings Cancelled 07/22/21 04:24 [place] Cells Cancelled 07/22/21 04:24 Crenated Cell Cancelled 07/22/21 04:24 Acanthocytes (Spur) Cancelled 07/22/21 04:24 [place]aux Cancelled 07/22/21 04:24 Schistocytes Cancelled 07/22/21 04:24 Sample Site Lr 07/20/21 07:04 ABG pH 7.430 (7.35-7.45) 07/20/21 07:04 ABG pCO2 30.0 mmHg (35.0-45.0) L 07/20/21 07:04 ABG pO2 72.0 mmHg (80.0-100.0) L 07/20/21 07:04 ABG HCO3 19.9 mmol/L (22-26) L 07/20/21 07:04 ABG O2 Saturation 95.0 % (90-100) 07/20/21 07:04 ABG Base Excess -3.4 mmol/L (-2.0-2.0) L 07/20/21 07:04 Roman Test Pos 07/20/21 07:04 A-a Gradient 40.0 mmHg 07/20/21 07:04 FiO2 21.0 07/20/21 07:04 Blood Gas Comments Pt césar well cdn 07/20/21 07:04 Sodium 138 mmol/L (136-145) 07/22/21 04:24 Corrected Sodium 138 mmol/L (136-145) 07/22/21 04:24 Potassium 4.5 mmol/L (3.5-5.1) 07/22/21 09:49 Chloride 107 mmol/L (98-107) 07/22/21 04:24 Carbon Dioxide 24.3 mmol/L (21-32) 07/22/21 04:24 BUN 14 mg/dL (7-18) 07/22/21 04:24 Creatinine 0.72 mg/dL (0.55-1.02) 07/22/21 04:24 Est GFR (MDRD) Af Amer > 60 (>60) 07/22/21 04:24 Est GFR (MDRD) Non-Af > 60 (>60) 07/22/21 04:24 Glucose 120 mg/dL (65-99) H 07/22/21 04:24 Lactic Acid 0.6 mmol/L (0.4-2.0) 07/18/21 15:20 Calcium 7.6 mg/dL (8.5-10.1) L 07/22/21 04:24 Corrected Calcium 9.5 mg/dL (8.5-10.1) 07/21/21 07:32 Magnesium 2.2 mg/dL (1.7-2.9) 07/21/21 07:32 Total Bilirubin 0.30 mg/dL (0.2-1.0) 07/21/21 07:32 AST 25 Units/L (15-37) 07/21/21 07:32 ALT 15 Units/L (12-78) 07/21/21 07:32 Alkaline Phosphatase 57 Units/L (46-116) 07/21/21 07:32 Creatine Kinase 70 Units/L (26-192) 07/18/21 15:20 CK-MB (CK-2) < 1.0 ng/mL (0-4.0) 07/18/21 15:20 CK/CKMB % Calc 1.4 % (<4) 07/18/21 15:20 Troponin I 0.04 ng/mL (0-1.5) 07/18/21 15:20 Total Protein 7.3 g/dL (6.4-8.2) 07/21/21 07:32 Albumin 2.8 g/dL (3.4-5.0) L 07/21/21 07:32 Globulin 4.5 g/dL (2.5-4.5) 07/21/21 07:32 Albumin/Globulin Ratio 0.6 Ratio (1.1-2.1) L 07/21/21 07:32 Specimen Type Catherized urine 07/18/21 16:16 Urine Color Dark yellow (YELLOW) 07/18/21 16:16 Urine Appearance Slightly hazy (CLEAR) 07/18/21 16:16 Urine pH 5.0 (5.0 - 8.0) 07/18/21 16:16 Ur Specific [place] 1.020 (1.000-1.030) 07/18/21 16:16 Urine Protein 4+ (NEGATIVE) 07/18/21 16:16 Urine Glucose (UA) Negative (NEGATIVE) 07/18/21 16:16 Urine Ketones Negative (NEGATIVE) 07/18/21 16:16 Urine Occult Blood 1+ (NEGATIVE) 07/18/21 16:16 Urine Nitrite Negative (NEGATIVE) 07/18/21 16:16 Urine Bilirubin Negative (NEGATIVE) 07/18/21 16:16 Urine Urobilinogen 2+ (NORMAL) 07/18/21 16:16 Ur Leukocyte Esterase 1+ (NEGATIVE) 07/18/21 16:16 Urine RBC 3-5 /HPF (0-3) A 07/18/21 16:16 Urine WBC 5-10 /HPF (0-5) A 07/18/21 16:16 Ur Squamous Epith Cells Few /HPF (NEGATIVE) 07/18/21 16:16 Urine Bacteria 3+ /HPF (NEGATIVE) 07/18/21 16:16 Ur Culture Indicated? Yes/culture set up 07/18/21 16:16 SARS CoV-2 RNA Rapid EDIL Positive (NEGATIVE) A 07/18/21 17:14 Plan (1) SOB (shortness of breath): Status: Acute (2) COVID-19: Status: Acute Plan: ADMIT, IV HYDRATION ISOLATION DUE TO COVID 19 STRICT I&OS, RESP THERAPY, SUPPLEMENTAL O2 CARDIAC MONITORING, CXR ON ADMISSION VERIFY HOME MEDICATION, BLOOD AND URINE CULTURE IV ATBX, IV REMDESIVIR (3) AMS (altered mental status): Status: Acute (4) CAD (coronary artery disease): Status: Acute Qualifiers: Associated angina: without angina Coronary Disease-Associated Artery/Lesion type: [place] artery [place] vs. transplanted heart: [place] heart Qualified Code(s): I25.10 - Atherosclerotic heart disease of [place] coronary artery without angina pectoris (5) COPD (chronic obstructive pulmonary disease): Status: Acute Qualifiers: COPD type: unspecified COPD Qualified Code(s): J44.9 - Chronic obstructive pulmonary disease, unspecified (6) Dehydration: Status: Acute (7) CAD (coronary artery disease): Status: Chronic
[2021-07-22 10:52] VITALS: BMI 18.8
[2021-07-22] MEDS: CATAPRES TAB 0.1 MG PO PRN (12:05)
[2021-07-23] MEDS: NS 1,000 ML IV 1,000 ML IV SCH ×3 (01:44→13:57)
[2021-07-23 05:08] LABS: BASOPHILS % (AUTO) 0.1 % (0.2-1.0); HEMATOCRIT 28.8 % (36.0-47.0); HEMOGLOBIN 9.7 g/dL (12.0-16.0); LYMPHOCYTES # (AUTO) 0.3 X10^3/uL (1.3-2.9); LYMPHOCYTES % (AUTO) 8.6 % (21.0-51.0); MEAN CORPUSCULAR HEMOGLOBIN 30.3 pg (27.0-34.0); MEAN CORPUSCULAR HGB CONC 33.8 g/dL (33.0-35.0); MEAN CORPUSCULAR VOLUME 89.6 fL (80.0-100.0); MEAN PLATELET VOLUME 8.5 fL (7.4-11.0); MONOCYTES # (AUTO) 0.2 x10^3/uL (0.3-0.8); MONOCYTES % (AUTO) 5.4 % (0.0-13.0); NEUTROPHILS # (AUTO) 2.8 x10^3/uL (2.2-4.8); NEUTROPHILS % (AUTO) 85.9 % (42.0-75.0); PLATELET COUNT 178 X10^3/uL (150.0-450.0); RED BLOOD COUNT 3.22 X10^6/uL (3.5-5.4); RED CELL DISTRIBUTION WIDTH 15.1 % (11.6-16.5); WHITE BLOOD COUNT 3.2 X10^3/uL (3.6-10.0)
[2021-07-23 05:26] LABS: ALANINE AMINOTRANSFERASE 17 Units/L (12-78); ALKALINE PHOSPHATASE 43 Units/L (46-116); ASPARTATE AMINO TRANSFERASE 18 Units/L (15-37); BLOOD UREA NITROGEN 19 mg/dL (7-18); CALCIUM 7.4 mg/dL (8.5-10.1); CARBON DIOXIDE 21.1 mmol/L (21-32); CHLORIDE 111 mmol/L (98-107); COR NA(FOR HYPERGLY) 147 mmol/L (136-145); CREATININE 0.86 mg/dL (0.55-1.02); SODIUM 145 mmol/L (136-145); TOTAL PROTEIN 5.4 g/dL (6.4-8.2); eGFR NON BLACK RACES > 60 (>60)
[2021-07-23] MEDS: PATIENT'S HOME MEDICATION OP SCH ×3 (05:47→13:57)
[2021-07-23] MEDS: SOLU-Medrol 40 MG VIAL IVP SCH ×2 (05:48→14:22)
[2021-07-23] MEDS: POTASSIUM CHLORIDE LIQ 20 MEQ UDC PO PRN (05:55)
[2021-07-23] MEDS: REMDESIVIR 100 MG in NS 250 ML IV 250 ML IV SCH (08:09)
[2021-07-23] MEDS: ROCEPHIN 1 GRAM IV PREMIX 1 G/50 ML IV.SOLN. IV SCH (08:09)
[2021-07-23] MEDS: PEPCID TAB 40 MG PO SCH (08:32)
[2021-07-23] MEDS: ZESTRIL TAB 5 MG PO SCH (08:33)
[2021-07-23] MEDS: PROTONIX INJ 40 MG VIAL IVP SCH (08:33)
[2021-07-23] MEDS: ZITHROMAX INJ 500 MG VIAL 250 MG in NS 250 ML IV 250 ML IV SCH (08:33)
[2021-07-23] MEDS: TOPROL XL PO SCH (08:33)
[2021-07-23] MEDS: ROBITUSSIN DM PO SCH ×2 (08:33→13:57)
[2021-07-23] MEDS: BROVANA IN SCH (08:50)
[2021-07-23] MEDS: PULMICORT NEB TX 0.5 MG NEB SCH (08:50)
[2021-07-23] MEDS ORDERED: LOVENOX INJ 40 MG SYR SC SCH (09:00)
[2021-07-23 15:38] VITALS: BP 170/85
== END 2021-07-23 15:30 | disposition home health service (06) ==
LOC: U 14:59 → ER 14:59 → U 18:25 → ICU 07-19 13:02
PROVIDERS: ADMIT Internal Medicine; ATTEND Internal Medicine

== ENCOUNTER 2022-06-24 14:17 | Observation (INO) ==
[2022-06-24] MEDS ORDERED: PULMICORT NEB TX 0.5 MG NEB SCH (16:03)
[2022-06-24] MEDS: K-DUR TAB 20 MEQ PO SCH (16:42)
[2022-06-24] MEDS: LASIX IVP SCH (16:42)
[2022-06-24] MEDS: PROTONIX INJ 40 MG VIAL IVP SCH ×2 (16:42→20:51)
[2022-06-24] MEDS: NS 1,000 ML IV 1,000 ML IV SCH (16:43)
[2022-06-24 17:00] LABS: ALANINE AMINOTRANSFERASE 14 Units/L (12-78); ALBUMIN 3.5 g/dL (3.4-5.0); ALKALINE PHOSPHATASE 114 Units/L (46-116); ASPARTATE AMINO TRANSFERASE 19 Units/L (15-37); BLOOD UREA NITROGEN 18 mg/dL (7-18); CALCIUM 8.3 mg/dL (8.5-10.1); CARBON DIOXIDE 25.8 mmol/L (21-32); CHLORIDE 109 mmol/L (98-107); CREATINE KINASE 77 Units/L (26-192); CREATININE 1.07 mg/dL (0.55-1.02); SODIUM 141 mmol/L (136-145); TOTAL PROTEIN 7.6 g/dL (6.4-8.2); eGFR NON BLACK RACES 51 (>60)
--- NOTE | 2022-06-24 17:01 | VAS ---
HISTORYReason For StudySTUDYLOWER EXT VENOUS, BILATERALCOMPARISONNoneTECHNIQUEMultiple caldera scale and color flow Doppler images of the deep venous system were obtained of the right and left lower extremity.FINDINGSThe deep venous system of the right and left lower extremities were evaluated from the level of the common femoral vein through the popliteal vein. Normal color flow and augmentation can be observed. In addition, normal compression is seen throughout the deep venous system.IMPRESSIONNegative for DVT.Electronically signed by: TRACIE SHAFFER (Jun 24, 2022 17:00:15)
[2022-06-24 17:11] LABS: IRON 22 ug/dL (50-175)
--- NOTE | 2022-06-24 17:44 | DR.H&P ---
H&P - History & Physical for Day of: H&P Date: 06/24/22 - Chief Complaint Chief Complaint: SOB, WEAKNESS, "LEGS SWELLING" - History of Present Illness History of Present Illness: PT IS 87 BF, DIRECT ADMIT FROM DR BOYER OFFICE WITH CHF EXACERBATION, SOB AND WEAKNESS. PT CO INCREASED LOWER LEGS SWELLING AND CHEST CONGESTION, "FLUID BUILD UP". PT HAS PMH OF CHF, CAD, COPD, ANEMIA, HTN AND OA. PT HAS BEEN ON PO LASIX AT HOME WITHOUT IMPROVEMENT. - Past Medical History Past Medical History: Coronary Artery Disease, Hypertension, Anxiety, COPD, GERD, Arthritis - Past Surgical History Surgical History: Cholecystectomy, Hysterectomy - Family History Family Medical History: Diabetes Mellitus, Coronary Artery Disease, Hypertension - Social History Does patient currently use any type of tobacco product: No Have you used tobacco products in the last 12 months: No Type of Tobacco Use: None Does any household member use tobacco: No Alcohol Use: None Drug Use: None - Medications Home Medications: No Known Drug Allergies Allergy (Verified 02/28/22 07:29) - Review of Systems Constitutional: Weakness Eyes: No Symptoms Reported ENT: No Symptoms Reported Respiratory: Cough, SOB with Excertion, Wheezing Cardiovascular: Chest Pain, Palpitations, Edema, Light Headedness Gastrointestinal: Nausea, Abdominal Pain Genitourinary: No Symptoms Reported Musculoskeletal: Back Pain, Leg Pain Skin: No Symptoms Reported Neurological: Weakness - Physical Exam Vital Signs: Temperature 99.1 F Pulse Rate [Right Brachial] 94 Respiratory Rate 24 Blood Pressure [Left Arm] 185/86 Blood Pressure [Right Arm] 143/78 O2 Sat by Pulse Oximetry 98 Oriented: Normal Eyes: Blurred Vision (CHRONIC) Ear: Normal, Left Throat: Normal Respiratory: Diminished Throughout Cardiovascular: Edema (+3BILATERAL LE EDEMA) : Normal Auscultation: Bowel Sounds: Normal Palpation: Normal Tenderness: Epigastric, Mild Skin: Decreased Turgur Musculoskeletal: Right, Left, Hip, Back:Lumbar Psychiatric: Anxiety Mood Description: Anxious Affect: Anxious Speech Pattern: Clear, Appropriate - Assessment/Plan (1) SOB (shortness of breath) Status: Acute Plan: ADMIT, SERIAL CE AND EKG ON ADMISSION. BP CONTROL, DUO NEBS. CXR AND RESP CONSULT ON ADMISSION. ADMISSION LABS CBC CMP ANEMIA PANEL, LACTIC ACID. BLOOD AND URINE CULTURES, BNP. VERIFY HOME MEDICATION, GENTLE IV HYDRATION, STRICT I&OS (2) Congestive heart failure Qualifiers: Status: Chronic (3) CAD (coronary artery disease) Qualifiers: Coronary Disease-Associated Artery/Lesion type: [place] artery [place] vs. transplanted heart: [place] heart Associated angina: without angina Qualified Code(s): I25.10 - Atherosclerotic heart disease of [place] coronary artery without angina pectoris Status: Acute (4) COPD (chronic obstructive pulmonary disease) Status: Acute (5) Hypertension Status: Chronic (6) Glaucoma Status: Chronic - Allergies Allergies/Adverse Reactions: Allergies Allergy/AdvReac Type Severity Reaction Status Date / Time No Known Drug Allergies Allergy Verified 02/28/22 07:29
[2022-06-24] MEDS ORDERED: NORCO 5/325 MG TAB PO PRN (17:47)
[2022-06-24 17:58] LABS: BILIRUBIN,URINE NEGATIVE (NEGATIVE); BLOOD/HEMOGLOBIN,URINE NEGATIVE (NEGATIVE); GLUCOSE, URINE NEGATIVE (NEGATIVE); KETONES,URINE NEGATIVE (NEGATIVE); LEUKOCYTE ESTERASE ,URINE NEGATIVE (NEGATIVE); NITRITES,URINE NEGATIVE (NEGATIVE); PROTEIN,URINE NEGATIVE (NEGATIVE); UROBILINOGEN,URINE NORMAL (NORMAL)
[2022-06-24 18:02] LABS: APPEARANCE,URINE CLEAR (CLEAR); COLOR,URINE STRAW (YELLOW)
--- NOTE | 2022-06-24 18:14 | RAD ---
EXAM: CHEST X-RAYHISTORY: CHF. Shortness of breath.TECHNIQUE: PA and lateral chest x-ray.COMPARISON: CXR dated May 04, 2022.FINDINGS:There is severe aortic atherosclerosis. The patient is status post sternotomy, presumably for CABG.There is evidence for cardiomegaly. The pulmonary vascularity and interstitial markings are diffusely prominent, consistent with mild CHF or volume overload in the appropriate clinical setting; differential diagnosis includes (but is not limited to) mild bronchitis and interstitial pneumonia in the appropriate clinical setting.There is no gross focal lung consolidation, pleural effusion, or pneumothorax seen. The visualized bony structures are within normal limits.IMPRESSION:1. Findings consistent with mild CHF or volume overload in the appropriate clinical setting (with interval increase in infiltrates compared with the previous exam); DDX includes (but is not limited to) mild bronchitis and interstitial pneumonia in the appropriate clinical setting.2. Recommend clinical correlation and appropriate follow-up CXR evaluation to ensure interval clearance as clinically warranted.3. Consider follow-up noncontrast chest CT for further characterization as clinically warranted.Electronically signed by: Shante Jacome (Jun 24, 2022 18:12:31)
--- NOTE | 2022-06-24 18:18 | EKG ---
Test Reason : sob, chf, cad Blood Pressure : */* mmHG Vent. Rate : 82 BPM Atrial Rate : 82 BPM P-R Int : 154 ms QRS Dur : 72 ms QT Int : 372 ms P-R-T Axes : 62 59 70 degrees QTc Int : 434 ms Normal sinus rhythm Septal infarct , age undetermined Abnormal ECG No previous ECGs available Confirmed by Vinay Huang (4) on 06/25/2022 8:51:31 AM Referred By: Confirmed By: Vinay Huang
[2022-06-24] MEDS ORDERED: D50W ABBOJECT SYR IV ONE ×3 (19:15→22:12)
[2022-06-24 19:37] LABS: BASOPHILS % (AUTO) 0.6 % (0.2-1.0); EOSINOPHILS % (AUTO) 0.7 % (0.9-2.9); HEMATOCRIT 25.9 % (36.0-47.0); HEMOGLOBIN 8.4 g/dL (12.0-16.0); LYMPHOCYTES # (AUTO) 1.5 X10^3/uL (1.3-2.9); LYMPHOCYTES % (AUTO) 28.2 % (21.0-51.0); MEAN CORPUSCULAR HEMOGLOBIN 28.5 pg (27.0-34.0); MEAN CORPUSCULAR HGB CONC 32.5 g/dL (33.0-35.0); MEAN CORPUSCULAR VOLUME 87.6 fL (80.0-100.0); MEAN PLATELET VOLUME 8.3 fL (7.4-11.0); MONOCYTES # (AUTO) 0.6 x10^3/uL (0.3-0.8); MONOCYTES % (AUTO) 11.3 % (0.0-13.0); NEUTROPHILS # (AUTO) 3.1 x10^3/uL (2.2-4.8); NEUTROPHILS % (AUTO) 59.2 % (42.0-75.0); RED BLOOD COUNT 2.96 X10^6/uL (3.5-5.4); RED CELL DISTRIBUTION WIDTH 15.7 % (11.6-16.5); WHITE BLOOD COUNT 5.2 X10^3/uL (3.6-10.0)
[2022-06-24 19:46] LABS: LACTIC ACID 2.9 mmol/L (0.4-2.0)
[2022-06-24] MEDS ORDERED: PULMICORT NEB TX 0.5 MG NEB ONE (19:55)
[2022-06-24] MEDS ORDERED: PROVENTIL NEB TX 0.083% 2.5MG/ 3ML ONE (19:55)
[2022-06-24] MEDS: PROVENTIL NEB TX 0.083% 2.5MG/ 3ML NEB SCH (20:45)
[2022-06-24] MEDS: PULMICORT NEB TX 0.5 MG NEB SCH (20:45)
[2022-06-24] MEDS: TOPROL XL PO SCH (20:51)
[2022-06-24] MEDS ORDERED: PATIENT'S HOME MEDICATION (Fluticasone Propion-Salmeterol [Advair Hfa] 115-21 mcg/actuatio IN SCH (21:00)
--- NOTE | 2022-06-24 23:19 | EKG ---
Test Reason : sob, chf, cad Blood Pressure : */* mmHG Vent. Rate : 76 BPM Atrial Rate : 76 BPM P-R Int : 158 ms QRS Dur : 80 ms QT Int : 406 ms P-R-T Axes : 43 41 60 degrees QTc Int : 456 ms Normal sinus rhythm Normal ECG When compared with ECG of 24-JUN-2022 18:13, (Unconfirmed) No significant change was found Confirmed by Vinay Huang (4) on 06/25/2022 8:51:27 AM Referred By: Confirmed By: Vinay Huang
[2022-06-24] MEDS ORDERED: APRESOLINE INJ 20 MG VIAL IVP PRN (23:35)
[2022-06-24] MEDS ORDERED: CATAPRES TAB 0.1 MG PO PRN (23:36)
[2022-06-25] MEDS: NS 1,000 ML IV 1,000 ML IV SCH (05:21)
[2022-06-25 05:54] LABS: BASOPHILS % (AUTO) 0.5 % (0.2-1.0); EOSINOPHILS # (AUTO) 0.1 x10^3/uL (0.0-0.2); EOSINOPHILS % (AUTO) 1.1 % (0.9-2.9); HEMATOCRIT 26.1 % (36.0-47.0); HEMOGLOBIN 8.8 g/dL (12.0-16.0); LYMPHOCYTES # (AUTO) 1.6 X10^3/uL (1.3-2.9); LYMPHOCYTES % (AUTO) 32.2 % (21.0-51.0); MEAN CORPUSCULAR HEMOGLOBIN 29.1 pg (27.0-34.0); MEAN CORPUSCULAR HGB CONC 33.6 g/dL (33.0-35.0); MEAN CORPUSCULAR VOLUME 86.6 fL (80.0-100.0); MONOCYTES # (AUTO) 0.5 x10^3/uL (0.3-0.8); MONOCYTES % (AUTO) 10.9 % (0.0-13.0); NEUTROPHILS # (AUTO) 2.7 x10^3/uL (2.2-4.8); NEUTROPHILS % (AUTO) 55.3 % (42.0-75.0); RED BLOOD COUNT 3.01 X10^6/uL (3.5-5.4); RED CELL DISTRIBUTION WIDTH 15.7 % (11.6-16.5); WHITE BLOOD COUNT 4.9 X10^3/uL (3.6-10.0)
--- NOTE | 2022-06-25 05:59 | EKG ---
Test Reason : sob, chf, cad Blood Pressure : */* mmHG Vent. Rate : 72 BPM Atrial Rate : 72 BPM P-R Int : 160 ms QRS Dur : 72 ms QT Int : 422 ms P-R-T Axes : 19 22 30 degrees QTc Int : 462 ms Normal sinus rhythm Normal ECG When compared with ECG of 24-JUN-2022 23:13, (Unconfirmed) No significant change was found Confirmed by Vinay Huang (4) on 06/25/2022 8:50:53 AM Referred By: Confirmed By: Vinay Huang
[2022-06-25 06:11] LABS: ALANINE AMINOTRANSFERASE 15 Units/L (12-78); ALBUMIN 3.2 g/dL (3.4-5.0); ALKALINE PHOSPHATASE 101 Units/L (46-116); ASPARTATE AMINO TRANSFERASE 18 Units/L (15-37); BLOOD UREA NITROGEN 13 mg/dL (7-18); CARBON DIOXIDE 26.6 mmol/L (21-32); CHLORIDE 107 mmol/L (98-107); COR CA(FOR HYPOALB) 8.6 mg/dL (8.5-10.1); CREATININE 0.99 mg/dL (0.55-1.02); SODIUM 141 mmol/L (136-145); TOTAL PROTEIN 7.1 g/dL (6.4-8.2); eGFR NON BLACK RACES 56 (>60)
[2022-06-25] MEDS ORDERED: POTASSIUM CHL 60 MEQ/NS 0.45% 500 ML IV PRN (06:50)
[2022-06-25] MEDS ORDERED: KLOR-CON PO PRN (06:50)
[2022-06-25] MEDS ORDERED: K-DUR TAB 20 MEQ PO PRN (06:50)
[2022-06-25] MEDS ORDERED: POTASSIUM CHL 40 MEQ/NS 0.45% 500 ML IV PRN (06:50)
[2022-06-25] MEDS ORDERED: K-RIDER 10 MEQ/NS 100 ML 10 MEQ/100 ML BAG IV PRN (06:50)
[2022-06-25] MEDS ORDERED: POTASSIUM CHLORIDE LIQ 20 MEQ UDC PO PRN (06:50)
[2022-06-25] MEDS ORDERED: MICRO K EXTEN CAP 10 MEQ PO PRN (06:50)
[2022-06-25] MEDS ORDERED: MAGNESIUM SULFATE 1 GRAM/100 mL PREMIX 1 G/100 ML BAG IV PRN (06:50)
[2022-06-25] MEDS: PROVENTIL NEB TX 0.083% 2.5MG/ 3ML NEB SCH ×4 (08:30→21:15)
[2022-06-25] MEDS: PULMICORT NEB TX 0.5 MG NEB SCH ×2 (08:30→21:15)
[2022-06-25] MEDS: PROTONIX INJ 40 MG VIAL IVP SCH (08:59)
[2022-06-25] MEDS: TOPROL XL PO SCH (08:59)
[2022-06-25] MEDS: K-DUR TAB 20 MEQ PO SCH (08:59)
[2022-06-25] MEDS ORDERED: LEVAQUIN PREMIX IV 500 MG 500 MG/100 ML BAG IV SCH (09:00)
[2022-06-25] MEDS ORDERED: D5 NS 1,000 ML IV 1,000 ML IV SCH (09:00)
[2022-06-25] MEDS ORDERED: LOVENOX INJ 40 MG SYR SC SCH (09:00)
[2022-06-25] MEDS: LASIX IVP SCH ×2 (09:06→17:22)
[2022-06-25 09:56] LABS: ABG BASE EXCESS -0.7 mmol/L (-2.0-2.0); ABG HCO3 23.4 mmol/L (22-26)
[2022-06-25] MEDS: ZOSYN VIAL 3.375 GRAMS 3.375 G in NS 100 ML IV 100 ML IV SCH ×2 (11:00→14:02)
--- NOTE | 2022-06-25 12:14 | CT ---
HISTORYCHF exacerbationSTUDYCTA chest with contrast for pulmonary embolusTechnique: Axial post-contrast images with coronal, sagittal, and 3 dimensional maximum intensity projection images obtained and evaluated. Dose reduction procedures were used with mA/kv adjusted for body size.[id number] is no evidence for acute pulmonary thromboembolic disease. Examination of the mediastinum again demonstrates the patient's known thyromegaly with marked enlargement of the right thyroid lobe demonstrating substernal extension and leftward deviation of the trachea. No abnormal mediastinal or abnormal hilar lymphadenopathy is identified. The aorta is calcified. No significant pleural effusions are identified. The heart is enlarged. No chest wall or axillary abnormality is identified. Those portions of the upper abdominal organs visualized were within normal limits but only to the limitations of early arterial injection timing. Examination of the lung rao demonstrated extensive changes of centrilobular emphysema. Best visualized on axial series 6, image 43 and coronal series 11, image 73 is a 3.1 by 2 by 1.9 cm posterior right upper lobe mass abutting the medial pleura. This should be considered primary lung neoplasm until proven otherwise. PET-CT is recommended for further evaluation. There is an irregular area of abnormal parenchymal density in the left lung apex measuring 8 mm by 7.4 mm and best visualized on coronal series 11, image 78. This extends to the pleura. This may represent primary or metastatic neoplasm or a focus of nodular atelectasis. PET-CT should be helpful for further evaluation. There is diffuse peribronchial thickening consistent with bronchitis which could be acute, chronic, or both. This is most prominent in the left lower lobe where dissociation with some atelectatic change.IMPRESSIONNo evidence for acute pulmonary thromboembolic disease3.1 x 2 x 1.9 cm posterior right upper lobe mass lesion which should be considered primary lung neoplasm until proven otherwise. PET-CT is recommended for further evaluation8 mm x 7.4 mm irregular nodular density peripherally and posteriorly in the left upper lobe which could represent metastatic disease, and additional primary or nodular atelectasis. PET-CT should be of further diagnostic value in the assessment of this lesion.Diffuse centrilobular emphysemaDiffuse peribronchial thickening consistent with bronchitis which could be acute, chronic, or bothRedemonstrated is the patient's known thyromegaly contributing to leftward tracheal deviation.Electronically signed by: CHAN BOGGS (Jun 25, 2022 12:12:09)
--- NOTE | 2022-06-25 16:13 | EKG ---
Test Reason : chest pain Blood Pressure : */* mmHG Vent. Rate : 94 BPM Atrial Rate : 94 BPM P-R Int : 158 ms QRS Dur : 78 ms QT Int : 378 ms P-R-T Axes : 32 32 60 degrees QTc Int : 472 ms Sinus rhythm with premature supraventricular complexes Nonspecific T wave abnormality Prolonged QT Abnormal ECG When compared with ECG of 25-JUN-2022 05:55, premature supraventricular complexes are now present Confirmed by Vinay Huang (4) on 06/27/2022 1:17:55 PM Referred By: Confirmed By: Vinay Huang
[2022-06-25 20:20] VITALS: BP 117/69
--- NOTE | 2022-06-26 08:06 | RAD ---
HISTORYFall, back painSTUDYLumbar spine five viewsCOMPARISONNoneFINDINGSThe bones are osteopenic. There is a large amount of overlying gas and stool causing some obscuration of the lumbar spine. The alignment is normal. The vertebral bodies are of average height. Disc space narrowing is present L2-3, L3-4, L5-S1. The pedicles are intact. SI joints are normal. No spondylolysis or spondylolisthesis is identified. Diffuse bilateral facet arthropathy is present. If the patient continues to be symptomatic CT of the lumbar spine may be of further diagnostic value in assessing for abnormalities obscured by overlying gas and stool.IMPRESSIONDisc space narrowing L2-3, L3-4, L5-W8Ljhtust bilateral facet arthropathyOsteopeniaElectronically signed by: CHAN BOGGS (Jun 26, 2022 08:05:19)
--- NOTE | 2022-06-26 08:15 | RAD ---
HISTORYabdominal pain, constipationSTUDYACUTE ABDOMEN SERIES, frontal chest with supine and upright abdomenCOMPARISONCTA chest 06/25/2022FINDINGSThe lung mass seen on CT is not clearly visible on radiography. There is vague opacity in the right suprahilar region which probably corresponds to the mass.Emphysematous changes are noted. No consolidation to suggest pneumonia. The suspicious area of atelectasis or pneumonia in the posterior lower left lower lobe seen by CT is not visible by chest radiography.Cardiomegaly is present. Vascular calcifications are present compatible with atherosclerosis.Median sternotomy wires are present.Gas is present in nondilated bowel. No bowel obstruction or free air. Moderate fecal burden in the colon suggests constipation. Vascular calcifications are noted.Degenerative changes are present in the spine. The bones are also demineralized.Surgical clips are in the right upper quadrant and at the GE junction. Left hip prosthesis is noted. Surgical wire noted in the midline lower abdomen. This could be in the spinous processes posteriorly.IMPRESSION1. Findings suggesting constipationElectronically signed by: Michael Joiner (Jun 26, 2022 08:11:46)
--- NOTE | 2022-06-26 08:19 | RAD ---
HISTORYFall, hip painSTUDYBilateral hips two views each, AP [id number] bones are osteopenic. The pelvic bones appear intact as does the right SI joint. The sacrum is nearly completely obscured by gas and stool as is the left SI joint. The right hip joint is intact. No joint erosions are identified. No definite fracture, lytic, or blastic lesion is identified. The patient is status post left hip arthroplasty in good position. No definite periprosthetic fracture is identified. However, if the patient continues to be symptomatic CT could be obtained in order to detect a fracture that is radiographically occult called due to osteopenia.IMPRESSIONRelatively severe osteopeniaIncomplete evaluation of the sacrum due to obscuration by overlying stool and gas.No definite hip fracture. If the patient continues to be symptomatic CT could be obtained in order to detect a fracture that is radiographically occult due to osteopenia.Electronically signed by: CHAN BOGGS (Jun 26, 2022 08:17:16)
== END 2022-06-25 21:15 | disposition short-term general hospital (02) ==
LOC: MED/SURG
PROVIDERS: ADMIT Internal Medicine; ATTEND Internal Medicine
DX: M25.551 Pain in right hip; K21.9 Gastro-esophageal reflux disease without esophagitis; R91.8 Other nonspecific abnormal finding of lung field; I50.9 Heart failure, unspecified; I11.0 Hypertensive heart disease with heart failure; R53.1 Weakness; R06.02 Shortness of breath; M25.552 Pain in left hip; I25.10 Atherosclerotic heart disease of native coronary artery without angina pectoris; Z91.81 History of falling; F41.8 Other specified anxiety disorders; J44.9 Chronic obstructive pulmonary disease, unspecified; M54.59 Other low back pain; M85.80 Other specified disorders of bone density and structure, unspecified site; H40.9 Unspecified glaucoma; R79.1 Abnormal coagulation profile; R26.89 Other abnormalities of gait and mobility; R77.8 Other specified abnormalities of plasma proteins